=== PATIENT | male | born 1970 | race Caucasian/White ===

== ENCOUNTER 2020-08-30 08:12 | Outpatient (REF) | payer BC, SELFPAY ==
[2020-08-30 09:06] LABS: Glucose Urine UA NEG (NEG); Leukocyte Esterase Urine NEG (NEG); Nitrite Urine NEG (NEG); PH 6.5 (5.0-8.0); Specific Gravity - Urine 1.025 (1.005-1.025); Urine Blood NEG (NEG); Urine Ketones NEG (NEG); Urine Protein NEG (NEG-TRACE)
[2020-08-30 09:08] LABS: Appearance Urine HAZY; Color Urine YELLOW
== END 2020-08-30 08:13 | disposition home or self-care (01) ==
LOC: HO.LAB 08:12
PROVIDERS: PCP Internal Medicine; Visit Provider Urology
DX: R30.0 Dysuria (principal)
CPT/HCPCS: 81003; 87086

== ENCOUNTER → 2020-09-26 15:23 | Outpatient (BNVA) | payer BC, SELFPAY | PROVIDERS: PCP Internal Medicine; Referring Provider Internal Medicine; Visit Provider Nurse Practitioner | DX: Z76.89 Persons encountering health services in other specified circumstances (principal) ==

== ENCOUNTER 2020-09-27 09:39 | Outpatient (REF) | payer BC, SELFPAY ==
[2020-09-27 10:42] LABS: Alanine Aminotransferase 59 U/L (0-40); Albumin Level 4.2 g/dL (3.5-5.0); Alkaline Phosphatase 56 U/L (39-117); Aspartate Amino Transferase 36 U/L (5-37); Bilirubin Direct 0.3 mg/dL (0.0-0.5); Bilirubin Total 0.5 mg/dL (0.0-1.0); Total Protein 6.7 g/dL (6.5-8.0)
[2020-09-27 14:36] LABS: CDIFF Ag Negative (Negative); CDIFF Internal ctrl Dots and bkg OK (V); CDiff Toxin Negative (Negative)
[2020-09-28 15:47] LABS: Alpha Fetoprotein 3.6 ng/mL (<6.1)
== END 2020-09-27 09:40 | disposition home or self-care (01) ==
LOC: HO.10HDL 09:39
PROVIDERS: Visit Provider Nurse Practitioner
DX: K76.0 Fatty (change of) liver, not elsewhere classified (principal); R19.7 Diarrhea, unspecified
CPT/HCPCS: 80076; 82105; 87045; 87046; 87324; 87449

== ENCOUNTER 2020-09-28 11:18 | Outpatient (REF) | payer BC, SELFPAY ==
[2020-09-28 15:37] LABS: PSA,Total (Free>4and<10) 8.37 ng/mL (0.00-4.00)
[2020-10-01 12:23] LABS: Free Prostate Spec Ag 0.7 ng/mL; Percent Free Prostate Spec Ag 9 % (calc) (>25); Prostate Specific Ag Total 7.4 ng/mL (< OR = 4.0)
== END 2020-09-28 11:19 | disposition home or self-care (01) ==
LOC: HO.10HDL 11:18
PROVIDERS: Visit Provider Urology
DX: R97.20 Elevated prostate specific antigen [PSA] (principal)
CPT/HCPCS: 84153; 84154

== ENCOUNTER → 2020-11-14 14:18 | Outpatient (BNVA) | payer BC, SELFPAY | PROVIDERS: PCP Internal Medicine; Visit Provider Urology | DX: Z76.89 Persons encountering health services in other specified circumstances (principal) ==

== ENCOUNTER 2021-01-10 09:18 | Outpatient (REF) | payer BC, SELFPAY | END 2021-01-10 09:19 | disposition home or self-care (01) | LOC: HO.LAB 09:18 | PROVIDERS: Visit Provider Internal Medicine | DX: Z20.822 Contact with and (suspected) exposure to COVID-19 (principal) | CPT/HCPCS: 36415; C9803; U0003; U0005 ==

== ENCOUNTER 2021-01-13 17:19 | Inpatient (IN) | payer BC, SELFPAY ==
--- NOTE | ~2021-01-13 | CT_ITS ---
EXAMINATION: CT ANGIOGRAM OF THE CHEST WITH AND WITHOUT CONTRAST (CT PULMONARY ANGIOGRAM FOR PE) CLINICAL INFORMATION: Reason for Exam chest pain. elevated D-dimer. PE? Covid pneumonia COMPARISON: Chest radiograph today, ultrasound abdomen 04/04/2020, CT abdomen pelvis 12/20/2018 TECHNIQUE: Prior to contrast administration, noncontrast localization images were obtained. Subsequently, multidetector volumetric imaging was performed from the thoracic inlet to below the diaphragms following the administration of 80 mL Omnipaque 350 intravenous contrast. No contrast reaction reported Sagittal, coronal, and MIP oblique sagittal reformatted images were obtained on the CT workstation, uploaded to PACS, and reviewed. This CT examination was performed using dose optimization techniques as appropriate, variously including the following: *Automated exposure control *Adjustment of mA and/or kV according to patient size (this includes techniques or standardized protocols for targeted exams where dose is matched to indication/reason for exam; i.e. extremities or head) *Use of iterative reconstruction technique Total exam dose-length product 397 mGy-cm FINDINGS: QUALITY OF STUDY/CONTRAST BOLUS: Satisfactory. There is significant motion artifact however the great PULMONARY ARTERIES: No central or large segmental pulmonary emboli. THORACIC AORTA: No aneurysm or dissection. LUNG: Right basilar atelectasis/infiltrate is present. Only minimal atelectasis is present at the left lung base. No findings are present to suggest the presence of viral pneumonia. PLEURA: No pleural effusion or pneumothorax. MEDIASTINUM: Normal heart size. No pericardial effusion. Prominent right paratracheal lymph node measuring 3.2 x 1.5 x 1.5 cm. No hilar or mediastinal lymphadenopathy. No evidence of septal bowing or right heart strain. CHEST WALL/AXILLA: No axillary or internal mammary lymphadenopathy. OSSEOUS STRUCTURES: No acute or suspicious osseous abnormality. UPPER ABDOMEN: The liver appears enlarged and is of decreased attenuation consistent with hepatic steatosis. Similar findings were seen on prior liver ultrasound No reflux of contrast into the hepatic veins to suggest elevated right heart pressures. CT/CT angio chest PE protocol IMPRESSION: No evidence of pulmonary emboli. Exam is somewhat limited by motion artifact. Right basilar infiltrate/atelectasis VTE: negative with limitations
--- NOTE | ~2021-01-13 | XR_ITS ---
EXAMINATION: XR CHEST CLINICAL INFORMATION: Right-sided chest or rib pain COMPARISON: 03/05/2019 TECHNIQUE: Frontal view of the chest was obtained. FINDINGS: Lung volumes are low. There is hazy opacity at the lung bases and diffusely increased interstitial prominence. Normal heart size. No pleural effusion or pneumothorax. XR/XR chest 1V IMPRESSION: In the setting of low lung volumes, there is hazy bibasilar opacity and diffuse interstitial prominence new from the prior study. Although all of these findings could be due to low lung volumes with atelectasis and bronchovascular crowding, viral COVID interstitial pneumonitis could give this appearance as well.
--- NOTE | ~2021-01-13 | XR_ITS ---
EXAMINATION: XR CHEST CLINICAL INFORMATION: Chest pain COMPARISON: AP film earlier today and chest radiograph 02/23/2019 TECHNIQUE: Lateral view of the chest was obtained. FINDINGS: Again seen are low lung volumes. The lateral film confirms the patchy bibasilar densities seen on the AP film. The left posterior costophrenic angle is sharp. The right, posterior costophrenic angle has overlying atelectasis. A definite pleural effusion is not seen. XR/XR chest 1V IMPRESSION: Bibasilar opacities. The current study does not add much to the prior report. Atelectasis remains a consideration as does interstitial pneumonitis such as Covid 19.
--- NOTE | ~2021-01-13 | XR_ITS ---
EXAMINATION: XR RIBS, RIGHT CLINICAL INFORMATION: Pain COMPARISON: Previous chest x-rays and chest CTA from yesterday TECHNIQUE: 3 views of the right ribs and one view of the chest were obtained. FINDINGS: The cardiac and mediastinal contours are stable. The lung volumes are low. There is increasing atelectasis or small infiltrate at the right lung base. There is subsegmental atelectasis at the left lung base. There may be small bilateral pleural effusions. There is no pneumothorax. No rib fracture is seen. There are mild degenerative changes of the thoracic spine. XR/XR ribs RT min 3V w CXR1V IMPRESSION: Increasing atelectasis or small infiltrate at the right lung base and subsegmental atelectasis at the left lung base. No rib fracture is seen.
--- NOTE | ~2021-01-13 | US_ITS ---
EXAMINATION: US ABDOMEN LIMITED CLINICAL INFORMATION: Right upper quadrant pain. COMPARISON: Previous CTA of the chest 01/13/2021, abdominal ultrasounds most recent March 2020 CT of the abdomen and pelvis December 2018 TECHNIQUE: Real-time imaging of the right upper quadrant abdominal viscera. FINDINGS: PANCREAS: Not well visualized due to bowel gas. LIVER: Liver echotexture is increased suggestive of fatty infiltration. The liver is enlarged. The liver is normal in contour. No focal liver lesion or biliary duct dilatation. GALLBLADDER: The gallbladder is normal in size. There are gallstones. The gallbladder wall does not appear thickened. There is no pericholecystic fluid. COMMON BILE DUCT: Not seen. RIGHT KIDNEY: Normal. No hydronephrosis. No renal calculi or focal parenchymal lesions. The kidney measures 14 cm in maximum dimension. FREE FLUID: None. US/US abdomen limited IMPRESSION: Enlarged echogenic liver. Gallstones. No intrahepatic biliary duct dilatation. Common bile duct and pancreas not seen.
[2021-01-13 17:24] VITALS: BP 140/72; PULSE 80; RESP 20; TEMP 37.7; O2SAT 95; BMI 31.0
[2021-01-13 19:24] VITALS: BP 135/85; PULSE 82; RESP 22; O2SAT 94
--- NOTE | 2021-01-13 19:56 | ECG_ITS ---
Test Reason : CHEST PAIN Blood Pressure : / mmHG Vent. Rate : 083 BPM Atrial Rate : 083 BPM P-R Int : 142 ms QRS Dur : 100 ms QT Int : 384 ms P-R-T Axes : 032 004 013 degrees QTc Int : 451 ms Normal sinus rhythm Nonspecific T wave changes When compared with ECG of 24-FEB-2019 02:09, No significant changes seen Referred By: Miguel Ángel Chun Electronically Signed By:Augustine Rivera
[2021-01-13 20:13] LABS: COVID-19 Test Negative (Negative)
--- NOTE | 2021-01-13 20:13 | ED_ITS ---
HPI - General Adult General Chief complaint: General Medical Stated complaint: SOB - rib pain Time Seen by Provider: 01/13/21 19:35 Source: patient Mode of arrival: ambulatory History of Present Illness HPI narrative: To ED for right-sided chest pain/pain on inspiration. Patient states coughing since last week with yellow phlegm and had negative COVID swab. Patient states cough her past couple of days and this morning he woke up with r ight lower chest/rib pain and worse on inspiration. Related Data Home Medications Medication Instructions Recorded Confirmed ascorbic acid (vitamin C) 500 mg 500 mg PO DAILY 07/19/20 tablet multivitamin with minerals 1 tab PO DAILY 07/19/20 naproxen 500 mg tablet 500 mg PO Q12H PRN tab 07/19/20 omega-3 fatty acids 1,000 mg 1,000 mg PO DAILY 07/19/20 capsule prednisone 10 mg tablet 10 mg PO DAILY 07/19/20 Previous Rx's Medication Instructions Recorded lisinopril 5 mg tablet 5 mg PO DAILY #30 tab 09/21/20 finasteride 5 mg tablet 5 mg PO DAILY 90 Days #90 tab 10/23/20 citalopram 20 mg tablet 20 mg PO DAILY #90 tab 11/27/20 levothyroxine 175 mcg tablet 175 mcg PO DAILY #90 tab 12/20/20 verapamil 80 mg tablet 80 mg PO TID #270 tab 12/20/20 Allergies Allergy/AdvReac Type Severity Reaction Status Date / Time amoxicillin Allergy Unknown Unknown Verified 11/14/20 14:20 fenofibrate [From TRICOR] Allergy Unknown UNKNOWN Verified 11/14/20 14:20 Sulfa (Sulfonamide Allergy Unknown mucosal Verified 11/14/20 14:20 Antibiotics) and hand rash/scaling sulfamethoxazole Allergy mucosal Verified 11/14/20 14:20 [From Bactrim] and hand rash/scaling trimethoprim [From Bactrim] Allergy mucosal Verified 11/14/20 14:20 and hand rash/scaling Review of Systems Review of Systems: Yes all other systems are reviewed and are negative Constitutional: Constitutional: Reports as per HPI and Reports no additional constitutional complaints Eyes: Eyes: Reports as per HPI and Reports no additional eye complaints ENT: Reports system reviewed and no additional complaints, except as documented and Reports as per HPI Cardiovascular: Cardiovascular: Reports as per HPI, Reports no additional cardiovascular complaints and Reports chest pain Respiratory: Respiratory: Reports as per HPI, Reports no additional respiratory complaints, Denies cough and Denies pain with cough Gastrointestinal: Gastrointestinal: Reports as per HPI and Reports no adam tional gastrointestinal complaints Genitourinary: Genitourinary: Reports no additional male genitourinary complaints and Reports as per HPI Musculoskeletal: Musculoskeletal: Reports no additional musculoskeletal complaints and Reports as per HPI Neurologic: Reports system reviewed and no additional complaints, except as documented and Reports as per HPI Psychiatric: Psychiatric: Reports no additional psychiatric complaints and Reports as per HPI [facility] Past Medical History Medical History (Updated 01/14/21 @ 01:49 by SHARI Karimi) HTN (hypertension) Hypothyroid Surgical History History of back surgery History of colonoscopy History of cystoscopy Family History Family History Father CVD (cardiovascular disease) Heart attack Rheumatoid arthritis Mother Dementia Social History Social History Alcohol intake: never Smoking Status: Current every day smoker Tobacco Type: Cigarette Years Smoked: when I drink Use of substances other than those prescribed or required for medical reasons: No Advance Directives: No Advance Directives Information Provided: No Physical Exam Vital Signs: Vital Signs: Last Vital Signs Temp 99.8 F 01/13/21 17:24 Pulse 80 01/13/21 20:47 Resp 21 H 01/13/21 20:47 BP 147/71 H 01/13/21 20:47 Pulse Ox 94 01/13/21 20:47 Body Mass Index 31.0 Const: General: cooperative, healthy appearing, comfortable, no acute distress, well developed, alert, awake and Physically active Orientation/consciousness: patient oriented x3 HENMT: Head: Yes normal to inspection and Yes No palpable skull fracture present Eyes: General: appearance normal, both eyes and all related structures Neck: Neck: Yes normal visual inspection, Yes full ROM, Yes no lymphadenopathy, Yes no meningeal signs, Yes trachea midline and Yes supple Chest: Chest palpation & inspection: normal inspection of the chest, normal palpation of entire chest wall and localized rib tenderness with anteroposterior compression Resp: Effort & Inspection: normal respiratory effort and able to speak in complete sentences Auscultation: clear to auscultation bilaterally Cardio: Jugular venous distension: no JVD Heart sounds: S1 normal heart sound present and S2 normal heart sound present GI: Inspection: Yes normal to inspection and No abdominal wall ecchymosis Palpation (GI): Soft to palpation, not firm, nontender, no guarding and not rigid : General: No CVA tenderness and Yes no CVA tenderness Back/Spine/Pelvis: Back: no CVA tenderness, No CVA tenderness and No back te nderness Skin: General skin exam: no rashes or lesions noted and elasticity normal Neuro: General: patient oriented x3, no meningeal signs and CN's II-XI intact bilaterally Cranial nerves: Yes CN's II-XII intact bilaterally Extrem: General: Yes normal to inspection and Yes full ROM Psych: Appearance: grossly normal, well kempt and not disheveled Course Course Course Narrative: Patient will have a COVID swab. Patient also have a chest x- ray to make sure there is no pneumo or pneumonia. Patient also have D-dimer to make sure he is not having no PE. Patient also have labs and Toradol for pain Reevaluation(s) Reevaluation #1: Patient COVID swabs were negative. Patient's chest x-ray showed possible COVID pneumonia. Patient still having right-sided chest pain. Due to elevated white blood cell count [id number] patient started on IV antibiotics. Patient sent for chest CT to rule PE Reevaluation #2: Chest CT negative for COVID pneumonia or PE. This shows right-sided infiltrate. Patient will be admitted to the hospital. EKG negative for STEMI. Patient started on antibiotics Medical Decision Making [facility] Narrative Medical decision making narrative: Pneumonia Lab Data Result diagrams: 01/13/21 20:16 01/13/21 20:16 Labs: Lab Results 01/13/21 01/13/21 01/13/21 Range/Units 19:52 20:16 20:16 WBC 26.7 H (4.8-10.8) X10*3/uL RBC 4.12 L (4.60-5.80) X10*6/uL Hgb 13.7 L (14.0-18.0) g/dl Hct 40.0 L (42-52) % MCV 97.1 (80-98) fL MCH 33.3 H (27.0-33.0) pg MCHC 34.3 (31.0-36.0) g/dl RDW 12.4 (11.0-16.0) % Plt Count 221 (160-400) X10*3/uL MPV 9.6 (9.4-12.4) fL Immature Gran % (Auto) 0.7 H (0.0-0.4) % Neut % (Auto) 79.4 H (45-73) % Lymph % (Auto) 9.1 L (20-40) % Tyrrell % (Auto) 10.4 (2-11) % Eos % (Auto) 0.2 (0-4) % Baso % (Auto) 0.2 (0-2) % Lymph # (Auto) 2.4 (1.2-4.9) X10*3/uL Tyrrell # (Auto) 2.8 H (0.1-1.2) X10*3/uL Eos # (Auto) 0.1 (0.0-0.4) X10*3/uL Baso # (Auto) 0.1 (0.0-0.2) X10*3/uL Abs Immat Gran (auto) 0.20 H (0.00-0.03) X10*3/uL Absolute Neuts (auto) 21.2 H (2.0-8.3) X10*3/uL Absolute Nucleated RBC 0.000 (0.0-0.012) X10*3/uL Nucleated RBC % (auto) 0.0 (0.0-0.2) /100WBC Smear Tech's Comments VERIFIED PT 14.9 H (10.8-13.0) SEC INR 1.3 H (0.9-1.1) APTT 59.5 H (24.1-38.0) SEC D-Dimer 725 NG/ML Sodium (135-145) mmol/L Potassium (3.3-5.1) mmol/L Chloride (96-108) mmol/L Carbon Dioxide (22-29) mmol/L Anion Gap (12-20) BUN (9-16) mg/dL Creatinine (0.5-1.4) mg/dL Estim Creat Clear Calc Estimated GFR Random Glucose (60-115) mg/dL Lactic Acid (0.5-2.0) mmol/L Calcium (8.4-10.2) mg/dL Ferritin (20-250) ng/mL Total Bilirubin (0.0-1.0) mg/dL Direct Bilirubin (0.0-0.5) mg/dL AST (5-37) U/L ALT (0-40) U/L Alkaline Phosphatase (39-117) U/L Lactate Dehydrogenase (118-273) U/L Troponin I High Sens (<3.5-35.0) ng/L Total Protein (6.5-8.0) g/dL Albumin (3.5-5.0) g/dL Procalcitonin ng/mL COVID-19 ([facility]) Negative (Negative) COVID-19 Clin Com See Note 01/13/21 01/13/21 01/13/21 Range/Units 20:16 20:16 20:16 WBC (4.8-10.8) X10*3/uL RBC (4.60-5.80) X10*6/uL Hgb (14.0-18.0) g/dl Hct (42-52) % MCV (80-98) fL MCH (27.0-33.0) pg MCHC (31.0-36.0) g/dl RDW (11.0-16.0) % Plt Count (160-400) X10*3/uL MPV (9.4-12.4) fL Immature Gran % (Auto) (0.0-0.4) % Neut % (Auto) (45-73) % Lymph % (Auto) (20-40) % Tyrrell % (Auto) (2-11) % Eos % (Auto) (0-4) % Baso % (Auto) (0-2) % Lymph # (Auto) (1.2-4.9) X10*3/uL Tyrrell # (Auto) (0.1-1.2) X10*3/uL Eos # (Auto) (0.0-0.4) X10*3/uL Baso # (Auto) (0.0-0.2) X10*3/uL Abs Immat Gran (auto) (0.00-0.03) X10*3/uL Absolute Neuts (auto) (2.0-8.3) X10*3/uL Absolute Nucleated RBC (0.0-0.012) X10*3/uL Nucleated RBC % (auto) (0.0-0.2) /100WBC Smear Tech's Comments PT (10.8-13.0) SEC INR (0.9-1.1) APTT (24.1-38.0) SEC D-Dimer NG/ML Sodium 136 (135-145) mmol/L Potassium 4.0 (3.3-5.1) mmol/L Chloride 103 (96-108) mmol/L Carbon Dioxide 21 L (22-29) mmol/L Anion Gap 16 (12-20) BUN 17 H (9-16) mg/dL Creatinine 0.86 (0.5-1.4) mg/dL Estim Creat Clear Calc 115.7 Estimated GFR > 60 Random Glucose 119 H (60-115) mg/dL Lactic Acid (0.5-2.0) mmol/L Calcium 8.6 (8.4-10.2) mg/dL Ferritin 799 H (20-250) ng/mL Total Bilirubin 1.5 H (0.0-1.0) mg/dL Direct Bilirubin 0.6 H (0.0-0.5) mg/dL AST 24 (5-37) U/L ALT 47 H (0-40) U/L Alkaline Phosphatase 66 (39-117) U/L Lactate Dehydrogenase 188 (118-273) U/L Troponin I High Sens 4.0 (<3.5-35.0) ng/L Total Protein 7.4 (6.5-8.0) g/dL Albumin 4.3 (3.5-5.0) g/dL Procalcitonin ng/mL COVID-19 ([facility]) (Negative) COVID-19 Clin Com 01/13/21 01/13/21 Range/Units 20:16 21:44 WBC (4.8-10.8) X10*3/uL RBC (4.60-5.80) X10*6/uL Hgb (14.0-18.0) g/dl Hct (42-52) % MCV (80-98) fL MCH (27.0-33.0) pg MCHC (31.0-36.0) g/dl RDW (11.0-16.0) % Plt Count (160-400) X10*3/uL MPV (9.4-12.4) fL Immature Gran % (Auto) (0.0-0.4) % Neut % (Auto) (45-73) % Lymph % (Auto) (20-40) % Tyrrell % (Auto) (2-11) % Eos % (Auto) (0-4) % Baso % (Auto) (0-2) % Lymph # (Auto) (1.2-4.9) X10*3/uL Tyrrell # (Auto) (0.1-1.2) X10*3/uL Eos # (Auto) (0.0-0.4) X10*3/uL Baso # (Auto) (0.0-0.2) X10*3/uL Abs Immat Gran (auto) (0.00-0.03) X10*3/uL Absolute Neuts (auto) (2.0-8.3) X10*3/uL Absolute Nucleated RBC (0.0-0.012) X10*3/uL Nucleated RBC % (auto) (0.0-0.2) /100WBC Smear Tech's Comments PT (10.8-13.0) SEC INR (0.9-1.1) APTT (24.1-38.0) SEC D-Dimer NG/ML Sodium (135-145) mmol/L Potassium (3.3-5.1) mmol/L Chloride (96-108) mmol/L Carbon Dioxide (22-29) mmol/L Anion Gap (12-20) BUN (9-16) mg/dL Creatinine (0.5-1.4) mg/dL Estim Creat Clear Calc Estimated GFR Random Glucose (60-115) mg/dL Lactic Acid 0.9 (0.5-2.0) mmol/L Calcium (8.4-10.2) mg/dL Ferritin (20-250) ng/mL Total Bilirubin (0.0-1.0) mg/dL Direct Bilirubin (0.0-0.5) mg/dL AST (5-37) U/L ALT (0-40) U/L Alkaline Phosphatase (39-117) U/L Lactate Dehydrogenase (118-273) U/L Troponin I High Sens (<3.5-35.0) ng/L Total Protein (6.5-8.0) g/dL Albumin (3.5-5.0) g/dL Procalcitonin 0.48 ng/mL COVID-19 ([facility]) (Negative) COVID-19 Clin Com ECG Data Interpretation: Normal sinus rhythm. Normal EKG. Ventricular rate 83. Ap pearance of a 138. QRS 102. QTC 435. Negative STEMI Discharge Plan Discharge Clinical Impression: Pneumonia Patient Disposition: Admitted As Inpatient
[2021-01-13 20:40] LABS: INTERNATIONAL NORM RATIO 1.3 (0.9-1.1); Prothrombin Time 14.9 SEC (10.8-13.0)
[2021-01-13 20:41] LABS: Basophils Absolute Auto 0.1 X10*3/uL (0.0-0.2); Basophils Percent Auto 0.2 % (0-2); Eosinophils Absolute Auto 0.1 X10*3/uL (0.0-0.4); Eosinophils Percent Auto 0.2 % (0-4); Hemoglobin 13.7 g/dl (14.0-18.0); Imm Gran Pct Auto 0.7 % (0.0-0.4); Lymphocytes Absolute Auto 2.4 X10*3/uL (1.2-4.9); Lymphocytes Percent Auto 9.1 % (20-40); MANUAL DIFF FLAG SCAN; Mean Corpuscular HGB Conc 34.3 g/dl (31.0-36.0); Mean Corpuscular Hemoglobin 33.3 pg (27.0-33.0); Mean Corpuscular Volume 97.1 fL (80-98); Mean Platelet Volume 9.6 fL (9.4-12.4); Monocytes Absolute Auto 2.8 X10*3/uL (0.1-1.2); Monocytes Percent Auto 10.4 % (2-11); Neutrophils Absolute Auto 21.2 X10*3/uL (2.0-8.3); Neutrophils Percent Auto 79.4 % (45-73); Platelet Count 221 X10*3/uL (160-400); Red Blood Count 4.12 X10*6/uL (4.60-5.80); Red Cell Distribution Width 12.4 % (11.0-16.0); SCAN SMEAR FLAG 1; White Blood Count 26.7 X10*3/uL (4.8-10.8)
[2021-01-13] MEDS: Ketorolac Tromethamine 30 MG/ML VIAL IVPUSH (20:41)
[2021-01-13 20:43] LABS: D Dimer 725 NG/ML
[2021-01-13 20:47] VITALS: BP 147/71; PULSE 80; RESP 21; O2SAT 94
[2021-01-13 20:55] LABS: Alanine Aminotransferase 47 U/L (0-40); Albumin Level 4.3 g/dL (3.5-5.0); Alkaline Phosphatase 66 U/L (39-117); Anion Gap 16 (12-20); Aspartate Amino Transferase 24 U/L (5-37); Bilirubin Direct 0.6 mg/dL (0.0-0.5); Bilirubin Total 1.5 mg/dL (0.0-1.0); Blood Urea Nitrogen 17 mg/dL (9-16); Calcium 8.6 mg/dL (8.4-10.2); Carbon Dioxide 21 mmol/L (22-29); Chloride 103 mmol/L (96-108); Creatinine Clr Calc Pharmacy 115.7; Estimated Glomerular Filt Rate > 60; Glucose Random 119 mg/dL (60-115); Lactate Dehydrogenase 188 U/L (118-273); Sodium 136 mmol/L (135-145); Total Protein 7.4 g/dL (6.5-8.0)
[2021-01-13 21:14] LABS: Ferritin 799 ng/mL (20-250)
[2021-01-13 21:17] LABS: Procalcitonin 0.48 ng/mL; SLIDE REVIEW VERIFIED
[2021-01-13 21:27] LABS: Partial Thromboplastin Time 59.5 SEC (24.1-38.0)
[2021-01-13 22:09] LABS: Lactic Acid 0.9 mmol/L (0.5-2.0)
[2021-01-13] MEDS: Morphine Sulfate 2 MG/ML CARTRIDGE IVPUSH (22:09)
[2021-01-13] MEDS: iohexoL 350 MG/ML 75 ML INFUS..BTL IV (22:38)
[2021-01-13] MEDS: cefTRIAXone sodium 1 GM in 0.9 % Sodium Chloride 50 ML IV (23:13)
[2021-01-13] MEDS: Azithromycin 500 MG in 0.9 % Sodium Chloride 250 ML 125 MG IV (23:35)
[2021-01-14] VITALS (7 sets, daily range): BP systolic 135–166; BP diastolic 77–89; PULSE 88–99; RESP 16–20; TEMP 36.3–37.3; O2SAT 90–94
[2021-01-14] MEDS: Ketorolac Tromethamine 15 MG/ML VIAL IVPUSH (02:32)
[2021-01-14] MEDS: LORazepam 2 MG/ML VIAL IVPUSH (02:34)
[2021-01-14] MEDS: PHENobarbitaL sodium 130 MG/ML VIAL 227.5 MG IM (04:30)
--- NOTE | 2021-01-14 04:52 | P.HPHOSP_ITS ---
History of Present Illness Date of Service: 01/14/21 Chief Complaint: chest pain This is a 50-year-old male with past medical history of BPH, hypertension, hypothyroidism, anxiety and depression, who presents to the hospital with complaints of right-sided chest pain that feels like tearing, 10/10, radiating to the back, associated with a cough, sputum production. Patient reports that his symptoms started the night before, pain is worse with inspiration, and movement. He has no headache, change in vision, no palpitations, no abdominal pain nausea or vomiting, no diarrhea constipation, no urinary symptoms and no lower extremity edema. On arrival to the ED hemodynamically stable with no significant abnormal vitals except for a respiratory rate of 22. Blood pressure 140/7 did have remained in that range Labs are significant for WBC count of 26.7, hemoglobin of 13.7, hematocrit of 40.0, PT 14.9, INR of 1.3, PTT of 59.5, ferritin of 799, total bili of 1.5, direct of 0.6, COVID-19 negative, CT chest angiogram shows no aneurysm or dissection of the thoracic aorta, lung shows right basilar atelectasis/infiltrate, no pleural effusion or pneumothorax, the liver also shows hepatic steatosis Past medical history as below and confirmed with patient Review of Systems Review of Systems: Yes all other systems are reviewed and are negative [facility] Medical History BPH w urinary obs/LUTS Hepatic steatosis HTN (hypertension) Hypothyroid Family History Father CVD (cardiovascular disease) Heart attack Rheumatoid arthritis Mother Dementia Surgical History History of back surgery History of colonoscopy History of cystoscopy Social History Household Members: Significant Other Housing: House Do you presently have visiting nurse or other home services: No Alcohol intake: never Smoking Status: Current every day smoker Tobacco Type: Cigarette Cigarettes Per Day: 10 Years Smoked: when I drink Smoked in Last 30 Days: Yes Patient Interested in Nicotine Replacement: No Patient Given Instructions on How to Stop Smoking: No Second Hand Smoke Exposure: Yes Use of substances other than those prescribed or required for medical reasons: No Have you been hit, kicked, punched, or otherwise hurt by someone within the past year? If so, by whom?: No Do you feel safe in your current relationship?: No Is there a partner from a previous relationship who is making you feel unsafe now?: No Advance Directives: No Advance Directives Information Provided: No Do you have thoughts of harming others: None Do you have a plan to hurt others: No Plan Recently lost weight without trying: No Meds Allergies Allergy/AdvReac Type Severity Reaction Status Date / Time amoxicillin Allergy Unknown Unknown Verified 11/14/20 14:20 fenofibrate [From TRICOR] Allergy Unknown UNKNOWN Verified 11/14/20 14:20 Sulfa (Sulfonamide Allergy Unknown mucosal Verified 11/14/20 14:20 Antibiotics) and hand rash/scaling sulfamethoxazole Allergy mucosal Verified 11/14/20 14:20 [From Bactrim] and hand rash/scaling trimethoprim [From Bactrim] Allergy mucosal Verified 11/14/20 14:20 and hand rash/scaling Active Medications: Current Medications Generic Name Dose Route Start Last Admin Trade Name Freq PRN Reason Stop Dose Admin Acetaminophen 650 mg 01/14/21 02:54 Acetaminophen 325 Mg Tablet PO Q6H PRN Pain, Mild (Pain Scale 1-3) Ascorbic Acid 500 mg 01/14/21 09:00 Ascorbic Acid 500 Mg Tablet PO DAILY [facility] Enoxaparin Sodium 40 mg 01/14/21 06:00 Enoxaparin Sodium 40 Mg/0.4 Ml Syringe SUBCUT Q24H [facility] Escitalopram Oxalate 10 mg 01/14/21 09:00 Escitalopram Oxalate 10 Mg Tablet PO DAILY [facility] Finasteride 5 mg 01/14/21 09:00 Finasteride 5 Mg Tablet PO DAILY [facility] Ceftriaxone Sodium 1 gm/ 50 mls @ 100 mls/hr 01/14/21 21:00 Sodium Chloride IV Q24H [facility] Azithromycin 500 mg/ Sodium 250 mls @ 125 mls/hr 01/14/21 22:00 Chloride IV Q24H [facility] Levothyroxine Sodium 175 mcg 01/14/21 06:30 Levothyroxine Sodium 175 Mcg Tablet PO DAILY@0630 [facility] Lisinopril 5 mg 01/14/21 09:00 Lisinopril 5 Mg Tablet PO DAILY [facility] Protocol Medication 1 each 01/14/21 09:00 No Benzodiazepines MISCELLANE DAILY [facility] Morphine Sulfate 4 mg 01/14/21 02:55 Morphine Sulfate 4 Mg/Ml Cartridge IVPUSH Q4H PRN Pain, Severe (Pain Scale 7-10) Multivitamins/Minerals 1 tab 01/14/21 09:00 Multivitamin With Minerals Tablet PO DAILY [facility] Ondansetron HCl 4 mg 01/14/21 02:54 Ondansetron Hcl 4 Mg/2 Ml Vial IVPUSH Q8H PRN Nausea and Vomiting Pharmacy Consult 1 each 01/14/21 02:56 Consult Rx Etoh Phenob Dosing MISCELLANE 01/14/21 02:57 ONCE ONE Protocol Phenobarbital Sodium 169 mg 01/14/21 07:30 Phenobarbital Sodium 130 Mg/Ml Vial IM 01/14/21 10:31 Q3H [facility] Sodium Chloride 3 ml 01/14/21 08:00 0.9 % Sodium Chloride Flush 3 Ml Syringe IVFLUSH QSHIFT [facility] Verapamil HCl 80 mg 01/14/21 09:00 Verapamil Hcl 80 Mg Tablet PO TID [facility] Protocol Home Medications Medication Instructions Recorded Confirmed Last Taken Type ascorbic acid (vitamin C) 500 mg 500 mg PO DAILY 07/19/20 01/14/21 Unknown History tablet multivitamin with minerals 1 tab PO DAILY 07/19/20 01/14/21 Unknown History omega-3 fatty acids 1,000 mg 1,000 mg PO DAILY 07/19/20 01/14/21 Unknown History capsule citalopram 1 tab PO DAILY 01/14/21 01/14/21 Unknown History finasteride 1 tab PO DAILY 01/14/21 01/14/21 Unknown History levothyroxine 1 tab PO DAILY 01/14/21 01/14/21 Unknown History lisinopril 1 tab PO DAILY 01/14/21 01/14/21 Unknown History verapamil 1 tab PO TID 01/14/21 01/14/21 Unknown History Physical Exam Vital Signs and Narrative: Vital Signs: Last Vital Signs Temp 97.4 F 01/14/21 04:00 Pulse 88 01/14/21 04:00 Resp 16 01/14/21 04:00 BP 142/89 H 01/14/21 04:00 Pulse Ox 93 01/14/21 04:00 Body Mass Index 31.0 Const: Other: Patient appears in significant pain, but when distracted appears less than pain General: cooperative and no acute distress Orientation/consciousness: patient oriented x3 Eyes: General: appearance normal, both eyes and all related structures Resp: Effort & Inspection: normal respiratory effort and able to speak in complete sentences Cardio: Rate: regular rate Rhythm: regular rhythm GI: Palpation (GI): Soft to palpation Auscultation: normal bowel sounds Skin: General skin exam: no rashes or lesions noted Neuro: General: patient oriented x3 Cognition (Neuro): normal cognition Extrem: General: Yes normal to inspection and Yes no pedal edema Results Labs CBC and Chem 7: 01/13/21 20:16 01/13/21 20:16 Labs: Laboratory Results - last 24 hr 01/13/21 01/13/21 01/13/21 19:52 20:16 20:16 MCV 97.1 MCH 33.3 H MCHC 34.3 RDW 12.4 Plt Count 221 MPV 9.6 Immature Gran % (Auto) 0.7 H Neut % (Auto) 79.4 H Lymph % (Auto) 9.1 L [place] % (Auto) 10.4 Eos % (Auto) 0.2 Baso % (Auto) 0.2 Lymph # (Auto) 2.4 [place] # (Auto) 2.8 H Eos # (Auto) 0.1 Baso # (Auto) 0.1 Abs Immat Gran (auto) 0.20 H Absolute Neuts (auto) 21.2 H Absolute Nucleated RBC 0.000 Nucleated RBC % (auto) 0.0 Smear Tech's Comments VERIFIED PT 14.9 H INR 1.3 H APTT 59.5 H D-Dimer 725 Anion Gap Estim Creat Clear Calc Estimated GFR Random Glucose Lactic Acid Calcium Ferritin Total Bilirubin Direct Bilirubin AST ALT Alkaline Phosphatase Lactate Dehydrogenase Troponin I High Sens Total Protein Albumin Procalcitonin COVID-19 ([facility]) Negative COVID-19 Clin Com See Note 01/13/21 01/13/21 01/13/21 20:16 20:16 20:16 MCV MCH MCHC RDW Plt Count MPV Immature Gran % (Auto) Neut % (Auto) Lymph % (Auto) [place] % (Auto) Eos % (Auto) Baso % (Auto) Lymph # (Auto) [place] # (Auto) Eos # (Auto) Baso # (Auto) Abs Immat Gran (auto) Absolute Neuts (auto) Absolute Nucleated RBC Nucleated RBC % (auto) Smear Tech's Comments PT INR APTT D-Dimer Anion Gap 16 Estim Creat Clear Calc 115.7 Estimated GFR > 60 Random Glucose 119 H Lactic Acid Calcium 8.6 Ferritin 799 H Total Bilirubin 1.5 H Direct Bilirubin 0.6 H AST 24 ALT 47 H Alkaline Phosphatase 66 Lactate Dehydrogenase 188 Troponin I High Sens 4.0 Total Protein 7.4 Albumin 4.3 Procalcitonin COVID-19 ([facility]) COVID-19 Clin Com 01/13/21 01/13/21 20:16 21:44 MCV MCH MCHC RDW Plt Count MPV Immature Gran % (Auto) Neut % (Auto) Lymph % (Auto) [place] % (Auto) Eos % (Auto) Baso % (Auto) Lymph # (Auto) [place] # (Auto) Eos # (Auto) Baso # (Auto) Abs Immat Gran (auto) Absolute Neuts (auto) Absolute Nucleated RBC Nucleated RBC % (auto) Smear Tech's Comments PT INR APTT D-Dimer Anion Gap Estim Creat Clear Calc Estimated GFR Random Glucose Lactic Acid 0.9 Calcium Ferritin Total Bilirubin Direct Bilirubin AST ALT Alkaline Phosphatase Lactate Dehydrogenase Troponin I High Sens Total Protein Albumin Procalcitonin 0.48 COVID-19 ([facility]) COVID-19 Clin Com Imaging Radiologist's Impressions: Impressions Chest X-Ray 01/13/21 19:56 IMPRESSION: In the setting of low lung volumes, there is hazy bibasilar opacity and diffuse interstitial prominence new from the prior study. Although all of these findings could be due to low lung volumes with atelectasis and bronchovascular crowding, viral COVID interstitial pneumonitis could give this appearance as well. Chest X-Ray 01/13/21 20:41 IMPRESSION: Bibasilar opacities. The current study does not add much to the prior report. Atelectasis remains a consideration as does interstitial pneumonitis such as Covid 19. Chest CTA 01/13/21 21:37 IMPRESSION: No evidence of pulmonary emboli. Exam is somewhat limited by motion artifact. Right basilar infiltrate/atelectasis VTE: negative with limitations Assessment and Plan (1) Pneumonia: Status: Acute (2) Chest pain: Status: Acute (3) Sepsis: Status: Acute 50-year-old male with past medical history of hypertension who presents to the hospital with complaints of right-sided chest pain found to have pneumonia # sepsis - has tachycardia, leukocytosis, - most likely secondary to community-acquired pneumonia, COVID-19 negative, no other source of infection - will start him on IV antibiotics - follow cultures # community-acquired pneumonia - COVID-19 PCR negative - patient has leukocytosis, evidence of infiltrate on chest CT - will start him on IV antibiotics - follow blood cultures, will add strep and Legionella urine antigens # chest pain - right-sided, worse with inspiration, although blood pressure slightly elevated but not significantly, noncardiac, troponin negative - CT angiogram of the chest is negative for any dissection or aneurysm, PE negat joseph - patient hemodynamically stable - will start him on pain medication - monitor # hypertension - continue lisinopril # hypothyroidism - continue levothyroxine DVT prophylaxis: Lovenox
[2021-01-14] MEDS: Levothyroxine Sodium 175 MCG TABLET PO (05:18)
[2021-01-14] MEDS: Enoxaparin Sodium 40 MG/0.4 ML SYRINGE SUBCUT (05:19)
[2021-01-14] MEDS: Morphine Sulfate 4 MG/ML CARTRIDGE IVPUSH ×3 (05:22→18:16)
[2021-01-14] MEDS: Finasteride 5 MG TABLET PO (07:40)
[2021-01-14] MEDS: lisinopriL 5 MG TABLET PO (07:40)
[2021-01-14] MEDS: Escitalopram Oxalate 10 MG TABLET PO (07:41)
[2021-01-14] MEDS: Ascorbic Acid 500 MG TABLET PO (07:41)
[2021-01-14] MEDS: PHENobarbitaL sodium 130 MG/ML VIAL 169 MG IM ×2 (07:42→11:12)
[2021-01-14] MEDS: 0.9 % Sodium Chloride Flush 3 ML SYRINGE IVFLUSH ×2 (07:42→14:58)
[2021-01-14] MEDS: VerapamiL HCL 80 MG TABLET PO ×3 (07:43→22:12)
--- NOTE | 2021-01-14 08:33 | MHC.CM.PN ---
PATIENT LIVES WITH HIS . HE IS FULLY INDEPENDENT WITH NO DME OR VNA SERVICES. DEMOGRAPHIC SHEET INFO VERIFIED. 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
[2021-01-14 09:44] LABS: Hematocrit 37.7 % (42-52); Hemoglobin 12.7 g/dl (14.0-18.0); Mean Corpuscular HGB Conc 33.7 g/dl (31.0-36.0); Mean Corpuscular Hemoglobin 33.4 pg (27.0-33.0); Mean Corpuscular Volume 99.2 fL (80-98); Mean Platelet Volume 9.6 fL (9.4-12.4); Platelet Count 216 X10*3/uL (160-400); Red Cell Distribution Width 12.7 % (11.0-16.0); White Blood Count 25.2 X10*3/uL (4.8-10.8)
--- NOTE | 2021-01-14 11:10 | HO.PM.IMPN ---
Subjective Subjective Date of Service: 01/14/21 Interval History: Follow up pneumonia. Still with pain to his right side. Physical Exam Vital Signs: Vital Signs: Last Vital Signs Temp 97.4 F 01/14/21 04:00 Pulse 89 01/14/21 07:32 Resp 20 01/14/21 07:32 BP 166/82 H 01/14/21 07:32 Pulse Ox 93 01/14/21 07:32 Body Mass Index 31.0 Sitting at the edge of the bed in pain head is normocephalic atraumatic lung sounds are clear to auscultation heart regular rate rhythm, clear S1, S2 positive bowel sounds, abdomen is soft, nontender neuro patient is alert x3, no focal deficits MSK tearing like pain to right lower rib Objective Data Current Medications Generic Name Dose Route Start Last Admin Trade Name Freq PRN Reason Stop Dose Admin Acetaminophen 650 mg 01/14/21 02:54 Acetaminophen 325 Mg Tablet PO Q6H PRN Pain, Mild (Pain Scale 1-3) Ascorbic Acid 500 mg 01/14/21 09:00 01/14/21 07:41 Ascorbic Acid 500 Mg Tablet PO 500 mg DAILY [facility] Administration Enoxaparin Sodium 40 mg 01/14/21 06:00 01/14/21 05:19 Enoxaparin Sodium 40 Mg/0.4 Ml Syringe SUBCUT 40 mg Q24H [facility] Administration Escitalopram Oxalate 10 mg 01/14/21 09:00 01/14/21 07:41 Escitalopram Oxalate 10 Mg Tablet PO 10 mg DAILY [facility] Administration Finasteride 5 mg 01/14/21 09:00 01/14/21 07:40 Finasteride 5 Mg Tablet PO 5 mg DAILY [facility] Administration Ceftriaxone Sodium 1 gm/ 50 mls @ 100 mls/hr 01/14/21 21:00 Sodium Chloride IV Q24H [facility] Azithromycin 500 mg/ Sodium 250 mls @ 125 mls/hr 01/14/21 22:00 Chloride IV Q24H [facility] Levothyroxine Sodium 175 mcg 01/14/21 06:30 01/14/21 05:18 Levothyroxine Sodium 175 Mcg Tablet PO 175 mcg DAILY@0630 [facility] Administration Lisinopril 5 mg 01/14/21 09:00 01/14/21 07:40 Lisinopril 5 Mg Tablet PO 5 mg DAILY [facility] Administration Protocol Medication 1 each 01/14/21 09:00 No Benzodiazepines MISCELLANE DAILY [facility] Morphine Sulfate 4 mg 01/14/21 02:55 01/14/21 05:22 Morphine Sulfate 4 Mg/Ml Cartridge IVPUSH 4 mg Q4H PRN Administration Pain, Severe (Pain Scale 7-10) Multivitamins/Minerals 1 tab 01/14/21 09:00 01/14/21 07:40 Multivitamin With Minerals Tablet PO 1 tab DAILY [facility] Administration Ondansetron HCl 4 mg 01/14/21 02:54 Ondansetron Hcl 4 Mg/2 Ml Vial IVPUSH Q8H PRN Nausea and Vomiting Phenobarbital 45 mg 01/14/21 21:00 Phenobarbital 15 Mg Tablet PO 01/16/21 09:01 BID [facility] Phenobarbital 15 mg 01/16/21 21:00 Phenobarbital 15 Mg Tablet PO 01/18/21 09:01 BID [facility] Phenobarbital 15 mg 01/18/21 21:00 Phenobarbital 15 Mg Tablet PO 01/19/21 21:01 BEDTIME [facility] Sodium Chloride 3 ml 01/14/21 08:00 01/14/21 07:42 0.9 % Sodium Chloride Flush 3 Ml Syringe IVFLUSH 3 ml QSHIFT [facility] Administration Verapamil HCl 80 mg 01/14/21 09:00 01/14/21 07:43 Verapamil Hcl 80 Mg Tablet PO 80 mg TID [facility] Administration Protocol Labs CBC & Chem 7: 01/14/21 09:30 01/13/21 20:16 Assessment and Plan (1) Pneumonia: Status: Acute Assessment and Plan: 50-year-old male with past medical history of hypertension who presents to the hospital with complaints of right-sided chest pain found to have pneumonia # Sepsis-Resolved. Secondary to community-acquired pneumonia, COVID-19 negative, no other source of infection - Rocephin and Azithromyin - follow cultures # Chest pain. Seems pleuritic in nature. right-sided, worse with inspiration, although blood pressure slightly elevated but not significantly, noncardiac, troponin negative - CT angiogram of the chest is negative for any dissection or aneurysm, PE negative - pain control - rib xray # Alcohol abuse. - CIWA, monitor for signs of withdrawl # Hypertension - continue lisinopril # Hypothyroidism - continue levothyroxine Attending: Dr. Norton
[2021-01-14] MEDS: Acetaminophen 325 MG TABLET 650 MG PO ×2 (14:59→21:55)
[2021-01-14] MEDS: cefTRIAXone sodium 1 GM in 0.9 % Sodium Chloride 50 ML IV (21:55)
[2021-01-14] MEDS: PHENobarbitaL 15 MG TABLET 45 MG PO (22:12)
[2021-01-14] MEDS: Azithromycin 500 MG in 0.9 % Sodium Chloride 250 ML 125 MG IV (23:04)
[2021-01-15] VITALS: BP 130/83; PULSE 81; RESP 18; TEMP 35.7; O2SAT 98
[2021-01-15] MEDS: Morphine Sulfate 4 MG/ML CARTRIDGE IVPUSH ×5 (00:15→23:33)
[2021-01-15] MEDS: 0.9 % Sodium Chloride Flush 3 ML SYRINGE IVFLUSH ×3 (00:17→16:10)
[2021-01-15 03:53] VITALS: RESP 16
[2021-01-15 04:51] LABS: Basophils Absolute Auto 0.1 X10*3/uL (0.0-0.2); Basophils Percent Auto 0.3 % (0-2); Eosinophils Absolute Auto 0.1 X10*3/uL (0.0-0.4); Eosinophils Percent Auto 0.3 % (0-4); Hematocrit 35.1 % (42-52); Hemoglobin 11.8 g/dl (14.0-18.0); Imm Gran Abs Auto 0.29 X10*3/uL (0.00-0.03); Imm Gran Pct Auto 1.5 % (0.0-0.4); Lymphocytes Percent Auto 10.2 % (20-40); MANUAL DIFF FLAG SCAN; Mean Corpuscular HGB Conc 33.6 g/dl (31.0-36.0); Mean Corpuscular Hemoglobin 33.8 pg (27.0-33.0); Mean Corpuscular Volume 100.6 fL (80-98); Mean Platelet Volume 9.4 fL (9.4-12.4); Neutrophils Absolute Auto 15.2 X10*3/uL (2.0-8.3); Neutrophils Percent Auto 77.7 % (45-73); Platelet Count 187 X10*3/uL (160-400); Red Blood Count 3.49 X10*6/uL (4.60-5.80); Red Cell Distribution Width 12.7 % (11.0-16.0); SCAN SMEAR FLAG 1; White Blood Count 19.5 X10*3/uL (4.8-10.8)
[2021-01-15 05:18] LABS: Anion Gap 14 (12-20); Blood Urea Nitrogen 17 mg/dL (9-16); Calcium 8.3 mg/dL (8.4-10.2); Carbon Dioxide 24 mmol/L (22-29); Chloride 99 mmol/L (96-108); Creatinine Clr Calc Pharmacy 125.9; Estimated Glomerular Filt Rate > 60; Glucose Random 115 mg/dL (60-115); Potassium 4.5 mmol/L (3.3-5.1); SLIDE REVIEW VERIFIED; Sodium 132 mmol/L (135-145)
[2021-01-15] MEDS: Levothyroxine Sodium 175 MCG TABLET PO (06:15)
[2021-01-15] MEDS: Enoxaparin Sodium 40 MG/0.4 ML SYRINGE SUBCUT (06:16)
[2021-01-15 08:00] VITALS: BP 129/85; PULSE 80; RESP 16; TEMP 36.1; O2SAT 93
[2021-01-15 08:50] LABS: Alanine Aminotransferase 32 U/L (0-40); Albumin Level 3.5 g/dL (3.5-5.0); Alkaline Phosphatase 59 U/L (39-117); Aspartate Amino Transferase 24 U/L (5-37); Bilirubin Direct 0.6 mg/dL (0.0-0.5); Bilirubin Total 1.2 mg/dL (0.0-1.0); Total Protein 6.4 g/dL (6.5-8.0)
[2021-01-15] MEDS: lisinopriL 5 MG TABLET PO (09:06)
[2021-01-15] MEDS: PHENobarbitaL 15 MG TABLET 45 MG PO ×2 (09:06→22:43)
[2021-01-15] MEDS: Finasteride 5 MG TABLET PO (09:06)
[2021-01-15] MEDS: Acetaminophen 325 MG TABLET 650 MG PO (09:06)
[2021-01-15] MEDS: Ascorbic Acid 500 MG TABLET PO (09:06)
[2021-01-15] MEDS: VerapamiL HCL 80 MG TABLET PO ×3 (09:06→22:44)
[2021-01-15] MEDS: Escitalopram Oxalate 10 MG TABLET PO (09:07)
[2021-01-15] MEDS: guaiFENesin DM 200/20/10 ML 10 ML SYRUP PO ×2 (09:56→18:07)
--- NOTE | 2021-01-15 11:02 | HO.PM.IMPN ---
Subjective Subjective Date of Service: 01/15/21 Interval History: Follow up pneumonia. Still with right sided lung pain with inspiration and cough. Physical Exam Vital Signs: Vital Signs: Last Vital Signs Temp 97.0 F 01/15/21 08:00 Pulse 80 01/15/21 08:00 Resp 16 01/15/21 08:00 BP 129/85 01/15/21 08:00 Pulse Ox 93 01/15/21 08:00 Body Mass Index 31.0 Appearing in mild distress with pain to right side lung sounds are clear to auscultation heart regular rate rhythm, clear S1, S2 positive bowel sounds, abdomen is soft, nontender neuro patient is alert x3, no focal deficits Objective Data Current Medications Generic Name Dose Route Start Last Admin Trade Name Freq PRN Reason Stop Dose Admin Acetaminophen 650 mg 01/14/21 02:54 01/15/21 09:06 Acetaminophen 325 Mg Tablet PO 650 mg Q6H PRN Administration Pain, Mild (Pain Scale 1-3) Ascorbic Acid 500 mg 01/14/21 09:00 01/15/21 09:06 Ascorbic Acid 500 Mg Tablet PO 500 mg DAILY [facility] Administration Enoxaparin Sodium 40 mg 01/14/21 06:00 01/15/21 06:16 Enoxaparin Sodium 40 Mg/0.4 Ml Syringe SUBCUT 40 mg Q24H [facility] Administration Escitalopram Oxalate 10 mg 01/14/21 09:00 01/15/21 09:07 Escitalopram Oxalate 10 Mg Tablet PO 10 mg DAILY [facility] Administration Finasteride 5 mg 01/14/21 09:00 01/15/21 09:06 Finasteride 5 Mg Tablet PO 5 mg DAILY [facility] Administration Guaifenesin/Dextromethorphan 10 ml 01/15/21 09:23 01/15/21 09:56 Guaifenesin Dm 200/20/10 Ml 10 Ml Syrup PO 10 ml Q6H PRN Administration Cough Ceftriaxone Sodium 1 gm/ 50 mls @ 100 mls/hr 01/14/21 21:00 01/14/21 22:42 Sodium Chloride IV Infused Q24H [facility] Infusion Azithromycin 500 mg/ Sodium 250 mls @ 125 mls/hr 01/14/21 22:00 01/15/21 01:55 Chloride IV Infused Q24H [facility] Infusion Ketorolac Tromethamine 15 mg 01/15/21 11:00 Ketorolac Tromethamine 15 Mg/Ml Vial IV Q6H [facility] Levothyroxine Sodium 175 mcg 01/14/21 06:30 01/15/21 06:15 Levothyroxine Sodium 175 Mcg Tablet PO 175 mcg DAILY@0630 [facility] Administration Lisinopril 5 mg 01/14/21 09:00 01/15/21 09:06 Lisinopril 5 Mg Tablet PO 5 mg DAILY [facility] Administration Protocol Medication 1 each 01/14/21 09:00 No Benzodiazepines MISCELLANE DAILY [facility] Morphine Sulfate 4 mg 01/14/21 02:55 01/15/21 09:56 Morphine Sulfate 4 Mg/Ml Cartridge IVPUSH 4 mg Q4H PRN Administration Pain, Severe (Pain Scale 7-10) Multivitamins/Minerals 1 tab 01/14/21 09:00 01/15/21 09:05 Multivitamin With Minerals Tablet PO 1 tab DAILY [facility] Administration Ondansetron HCl 4 mg 01/14/21 02:54 Ondansetron Hcl 4 Mg/2 Ml Vial IVPUSH Q8H PRN Nausea and Vomiting Phenobarbital 45 mg 01/14/21 21:00 01/15/21 09:06 Phenobarbital 15 Mg Tablet PO 01/16/21 09:01 45 mg BID [facility] Administration Phenobarbital 15 mg 01/16/21 21:00 Phenobarbital 15 Mg Tablet PO 01/18/21 09:01 BID [facility] Phenobarbital 15 mg 01/18/21 21:00 Phenobarbital 15 Mg Tablet PO 01/19/21 21:01 BEDTIME [facility] Sodium Chloride 3 ml 01/14/21 08:00 01/15/21 09:07 0.9 % Sodium Chloride Flush 3 Ml Syringe IVFLUSH 3 ml QSHIFT [facility] Administration Verapamil HCl 80 mg 01/14/21 09:00 01/15/21 09:06 Verapamil Hcl 80 Mg Tablet PO 80 mg TID [facility] Administration Protocol Labs CBC & Chem 7: 01/15/21 04:37 01/15/21 04:37 Microbiology Microbiology Results: Microbiology 01/13/21 22:12 Blood - Venous Blood Culture - Preliminary No growth after 24 hours. 01/13/21 21:44 Blood - Venous Blood Culture - Preliminary No growth after 24 hours. Assessment and Plan (1) Pneumonia: Status: Acute Assessment and Plan: 50-year-old male with past medical history of hypertension who presents to the hospital with complaints of right-sided chest pain found to have pneumonia # Chest pain. Seems pleuritic in nature. right-sided, worse with inspiration, although blood pressure slightly elevated but not significantly, noncardiac, troponin negative - CT angiogram of the chest is negative for any dissection or aneurysm, PE negative - pain control - rib xray negative - Right upper quad US to rule out liver abnormality in light of alcohol use. - Add Toradol for pain. # Sepsis-Resolved. Secondary to community-acquired pneumonia, COVID-19 negative, no other source of infection - Rocephin and Azithromyin - follow cultures # Alcohol abuse. - CIWA, monitor for signs of withdrawal # Hypertension - continue lisinopril # Hypothyroidism - continue levothyroxine Dispo: Possible discharge tomorrow if stable. Attending: Dr. Norton
[2021-01-15 12:00] VITALS: BP 150/79; PULSE 76; RESP 18; TEMP 37.1; O2SAT 95
[2021-01-15] MEDS: Ketorolac Tromethamine 15 MG/ML VIAL IV ×3 (13:44→22:42)
[2021-01-15 15:12] VITALS: BP 134/70; PULSE 79; RESP 20; TEMP 36.3; O2SAT 94
[2021-01-15 19:12] VITALS: BP 123/66; PULSE 78; RESP 20; TEMP 37.4; O2SAT 93
[2021-01-15] MEDS: cefTRIAXone sodium 1 GM in 0.9 % Sodium Chloride 50 ML IV (22:43)
[2021-01-15] MEDS: Azithromycin 500 MG in 0.9 % Sodium Chloride 250 ML 125 MG IV (23:31)
[2021-01-16] VITALS: BP 116/66; PULSE 74; RESP 18; TEMP 36.4; O2SAT 97
[2021-01-16 03:10] VITALS: BP 111/67; PULSE 69; RESP 16; TEMP 36.3; O2SAT 97
[2021-01-16] MEDS: Ketorolac Tromethamine 15 MG/ML VIAL IV (04:54)
[2021-01-16] MEDS: guaiFENesin DM 200/20/10 ML 10 ML SYRUP PO (04:56)
[2021-01-16] MEDS: Morphine Sulfate 4 MG/ML CARTRIDGE IVPUSH ×2 (05:18→09:32)
[2021-01-16] MEDS: Levothyroxine Sodium 175 MCG TABLET PO (05:21)
[2021-01-16] MEDS: Enoxaparin Sodium 40 MG/0.4 ML SYRINGE SUBCUT (05:22)
[2021-01-16 06:42] LABS: Basophils Percent Auto 0.3 % (0-2); Eosinophils Absolute Auto 0.1 X10*3/uL (0.0-0.4); Eosinophils Percent Auto 0.9 % (0-4); Hemoglobin 11.3 g/dl (14.0-18.0); Imm Gran Abs Auto 0.28 X10*3/uL (0.00-0.03); Imm Gran Pct Auto 1.9 % (0.0-0.4); Lymphocytes Absolute Auto 1.6 X10*3/uL (1.2-4.9); Lymphocytes Percent Auto 10.4 % (20-40); MANUAL DIFF FLAG SCAN; Mean Corpuscular HGB Conc 33.2 g/dl (31.0-36.0); Mean Corpuscular Hemoglobin 33.2 pg (27.0-33.0); Monocytes Absolute Auto 1.7 X10*3/uL (0.1-1.2); Monocytes Percent Auto 11.5 % (2-11); Neutrophils Absolute Auto 11.2 X10*3/uL (2.0-8.3); Platelet Count 184 X10*3/uL (160-400); Red Cell Distribution Width 12.4 % (11.0-16.0); SCAN SMEAR FLAG 1; White Blood Count 14.9 X10*3/uL (4.8-10.8)
[2021-01-16 07:28] LABS: Anion Gap 15 (12-20); Blood Urea Nitrogen 18 mg/dL (9-16); Calcium 7.5 mg/dL (8.4-10.2); Carbon Dioxide 24 mmol/L (22-29); Chloride 97 mmol/L (96-108); Creatinine Clr Calc Pharmacy 136.3; Estimated Glomerular Filt Rate > 60; Glucose Random 97 mg/dL (60-115); Potassium 3.7 mmol/L (3.3-5.1); Sodium 132 mmol/L (135-145)
[2021-01-16 07:37] LABS: SLIDE REVIEW VERIFIED
[2021-01-16 08:00] VITALS: BP 114/66; PULSE 70; RESP 16; TEMP 36.3; O2SAT 96
[2021-01-16] MEDS: 0.9 % Sodium Chloride Flush 3 ML SYRINGE IVFLUSH (09:23)
[2021-01-16] MEDS: Ascorbic Acid 500 MG TABLET PO (09:24)
[2021-01-16] MEDS: PHENobarbitaL 15 MG TABLET 45 MG PO (09:25)
[2021-01-16] MEDS: VerapamiL HCL 80 MG TABLET PO (09:25)
[2021-01-16] MEDS: lisinopriL 5 MG TABLET PO (09:26)
[2021-01-16] MEDS: Escitalopram Oxalate 10 MG TABLET PO (09:26)
[2021-01-16] MEDS: Finasteride 5 MG TABLET PO (09:26)
--- NOTE | 2021-01-16 13:09 | P.DS_ITS ---
DS: Providers Provider Date of Service: 01/16/21 <Maricarmen Varghese NP - Last Filed: 01/16/21 14:15> 01/16/21 <Alistair Norton MD - Last Filed: 01/17/21 15:21> Date of admission: 01/14/21 02:54 <Maricarmen Varghese NP - Last Filed: 01/16/21 14:15> Primary care physician: Brent Stewart MD <Maricarmen Varghese NP - Last Filed: 01/16/21 14:15> DS: Diagnosis Discharge Diagnosis (1) Sepsis: Status: Acute <Maricarmen Varghese NP - Last Filed: 01/16/21 14:15> (2) Pneumonia: Status: Acute <Maricarmen Varghese NP - Last Filed: 01/16/21 14:15> (3) Alcohol withdrawal: Status: Acute <Maricarmen Varghese NP - Last Filed: 01/16/21 14:15> DS: Medications Discharge Medications Home Medications: Home Medications Medication Instructions Recorded Confirmed ascorbic acid (vitamin C) 500 mg 500 mg PO DAILY 07/19/20 01/14/21 tablet multivitamin with minerals 1 tab PO DAILY 07/19/20 01/14/21 omega-3 fatty acids 1,000 mg 1,000 mg PO DAILY 07/19/20 01/14/21 capsule citalopram 1 tab PO DAILY 01/14/21 01/14/21 finasteride 1 tab PO DAILY 01/14/21 01/14/21 levothyroxine 1 tab PO DAILY 01/14/21 01/14/21 lisinopril 1 tab PO DAILY 01/14/21 01/14/21 verapamil 1 tab PO TID 01/14/21 01/14/21 Previous Rx's Medication Instructions Recorded azithromycin 500 mg PO DAILY 3 Days #3 tab 01/16/21 cefuroxime axetil 500 mg PO BID #10 tab 01/16/21 ibuprofen 800 mg PO Q8H PRN #9 tab 01/16/21 oxycodone 5 mg PO Q8H PRN #6 tab 01/16/21 <Maricarmen Varghese NP - Last Filed: 01/16/21 14:15> DS: Summary Hospital Course Hospital Course: HP as per admitting provider This is a 50-year-old male with past medical history of BPH, hypertension, hypothyroidism, anxiety and depression, who presents to the hospital with complaints of right-sided chest pain that feels like tearing, 10/10, radiating to the back, associated with a cough, sputum production. Patient reports that his symptoms started the night before, pain is worse with inspiration, and movement. He has no headache, change in vision, no palpitations, no abdominal pain nausea or vomiting, no diarrhea constipation, no urinary symptoms and no lower extremity edema. On arrival to the ED hemodynamically stable with no significant abnormal vitals except for a respiratory rate of 22. Blood pressure 140/7 did have remained in that range Labs are significant for WBC count of 26.7, hemoglobin of 13.7, hematocrit of 40.0, PT 14.9, INR of 1.3, PTT of 59.5, ferritin of 799, total bili of 1.5, direct of 0.6, COVID-19 negative, CT chest angiogram shows no aneurysm or dissection of the thoracic aorta, lung shows right basilar atelectasis/infiltrate, no pleural effusion or pneumothorax, the liver also shows hepatic steatosis . Sepsis secondary to Community acquired pneumonia. No elevated lactic acid or hypotension. Blood cultures were negative. He was treated with IV Antibiotics and symptoms improved. He is discharged with Ceftin and azithromycin. Pleuritic chest pain. Chest CTA, rib xray were negative for abnormalities. Pain from pleurisy secondary to pneumonia. Improved significantly with IV toradol and morphine. He is discharged with Ibuprofen and Oxycodone for pain. Alcohol abuse. Treated with phenobarbitol. Encouraged to stop using alcohol. Attending: Dr. Norton. Patient seen and examined independently and I was present during zapata portion of E/M service. Agree with Charlene Varghese NP's history, physical, assessment, and plan. Sepsis resolved. A febrile and tolerating RA. Pleuritic chest pain resolved -- was ruled out for PE. Treated with pheno for alcohol withdrawal which resolved. Cessation was strongly encouraged. To complete a course of antibiotics for pneumonia. <Maricarmen Varghese NP - Last Filed: 01/16/21 14:15> Time Spent with Patient Time attestation: Total time spent providing and/or coordinating discharge services: <Maricarmen Varghese NP - Last Filed: 01/16/21 14:15> Discharge coordination time: Greater than 30 minutes <Maricarmen Varghese NP - Last Filed: 01/16/21 14:15> Physical Exam Vital Signs: Vital Signs: Last Vital Signs Temp 97.3 F 01/16/21 08:00 Pulse 70 01/16/21 08:00 Resp 16 01/16/21 08:00 BP 114/66 01/16/21 08:00 Pulse Ox 96 01/16/21 08:00 Body Mass Index 31.0 <Maricarmen Varghese NP - Last Filed: 01/16/21 14:15> Appearing in no acute distress head is normocephalic atraumatic eyes pupils are PERRLA sclera is anicteric mouth throat mucous membranes are intact and moist neck is supple no lymphadenopathy, no JVD noted lung sounds are clear to auscultation heart regular rate rhythm, clear S1, S2 positive bowel sounds, abdomen is soft, nontender neuro patient is alert x3, no focal deficits <Maricarmen Varghese NP - Last Filed: 01/16/21 14:15> DS: Data Data Completed and Pending Labs on day of discharge: Laboratory Results - last 24 hr 01/16/21 01/16/21 05:54 05:54 WBC 14.9 H RBC 3.40 L Hgb 11.3 L Hct 34.0 L MCV 100.0 H MCH 33.2 H MCHC 33.2 RDW 12.4 Plt Count 184 MPV 10.0 Immature Gran % (Auto) 1.9 H Neut % (Auto) 75.0 H Lymph % (Auto) 10.4 L [place] % (Auto) 11.5 H Eos % (Auto) 0.9 Baso % (Auto) 0.3 Lymph # (Auto) 1.6 [place] # (Auto) 1.7 H Eos # (Auto) 0.1 Baso # (Auto) 0.0 Abs Immat Gran (auto) 0.28 H Absolute Neuts (auto) 11.2 H Absolute Nucleated RBC 0.000 Nucleated RBC % (auto) 0.0 Smear Tech's Comments VERIFIED Sodium 132 L Potassium 3.7 Chloride 97 Carbon Dioxide 24 Anion Gap 15 BUN 18 H Creatinine 0.73 Estim Creat Clear Calc 136.3 Estimated GFR > 60 Random Glucose 97 Calcium 7.5 L D Preliminary micro results at discharge 01/13/21 22:12 Blood Culture - Preliminary Blood - Venous No growth after 48 hours. 01/13/21 21:44 Blood Culture - Preliminary Blood - Venous No growth after 48 hours. <Maricarmen Varghese NP - Last Filed: 01/16/21 14:15> Discharge Plan Discharge Anticipated Discharge Date/Time: 01/16/21 09:43 <Maricarmen Varghese NP - Last Filed: 01/16/21 14:15> Patient Disposition: Home, Self-Care <Maricarmen Varghese NP - Last Filed: 01/16/21 14:15> Referrals: Brent Stewart MD [Primary Care Provider] - <Maricamren Varghese NP - Last Filed: 01/16/21 14:15> Discharge Medications: New cefuroxime axetil 500 mg tablet 500 mg PO BID Qty: 10 RF: 0 azithromycin 500 mg tablet 500 mg PO DAILY 3 Days Qty: 3 RF: 0 ibuprofen 800 mg tablet 800 mg PO Q8H PRN (Reason: pleuritic pain ) Qty: 9 RF: 0 oxycodone 5 mg tablet 5 mg PO Q8H PRN (Reason: PLEURITIC CHEST PAIN ) Qty: 6 RF: 0 Continued levothyroxine 175 mcg tablet 1 tab PO DAILY RF: 0 citalopram 20 mg tablet 1 tab PO DAILY RF: 0 lisinopril 5 mg tablet 1 tab PO DAILY RF: 0 verapamil 80 mg tablet 1 tab PO TID RF: 0 finasteride 5 mg tablet 1 tab PO DAILY RF: 0 omega-3 fatty acids [Fish Oil Concentrate] 1,000 mg capsule 1,000 mg PO DAILY RF: 0 multivitamin with minerals [Men's One Daily] Tablet 1 tab PO DAILY RF: 0 ascorbic acid (vitamin C) 500 mg tablet 500 mg PO DAILY RF: 0 <Maricarmen Varghese NP - Last Filed: 01/16/21 14:15> Discharge Orders: Discharge Order (Routine); Ordered 01/16/21 Ordered By: Maricarmen Varghese <Maricarmen Varghese NP - Last Filed: 01/16/21 14:15> Diet: advance to usual diet <Maricarmen Varghese NP - Last Filed: 01/16/21 14:15> advance to usual diet <Alistair Norton MD - Last Filed: 01/17/21 15:21> Activity on Discharge: As tolerated <Maricarmen Varghese NP - Last Filed: 01/16/21 14:15> As tolerated <Alistair Norton MD - Last Filed: 01/17/21 15:21> Stand Alone Forms: Patient Portal Discharge page <Maricarmen Varghese NP - Last Filed: 01/16/21 14:15> Care Plan Goals: Resolution of pleuritic pain from pneumonia <Maricarmen Varghese NP - Last Filed: 01/16/21 14:15> Health Concerns: Pneumonia Pleuritic chest pain <Maricarmen Varghese NP - Last Filed: 01/16/21 14:15> Plan of Treatment: Follow up with primary care provider as needed Continue antibiotic treatment as prescribed <Maricarmen Varghese NP - Last Filed: 01/16/21 14:15> Discharge Date/Time: 01/16/21 10:40 <Maricarmen Varghese NP - Last Filed: 01/16/21 14:15>
[2021-01-18 01:26] LABS: Strep Pneumo Ag urine Not Detected (Not Detected)
[2021-01-24 11:46] LABS: Legionella Ag Urine Not Detected (Not Detected)
== END 2021-01-16 10:40 | disposition home or self-care (01) | DRG 720 ==
LOC: HO.ED 01-14 01:49 → HO.S3 01-14 03:11
PROVIDERS: Nurse Practitioner Acute Care; Physician Assistant; Admitting Provider Internal Medicine; Emergency Provider Emergency Medicine Emergency Medical Services; PCP Internal Medicine; Visit Provider Family Medicine
DX: A41.9 Sepsis, unspecified organism (principal); J18.9 Pneumonia, unspecified organism; F32.9 Major depressive disorder, single episode, unspecified; E03.9 Hypothyroidism, unspecified; R09.1 Pleurisy; F41.9 Anxiety disorder, unspecified; N40.0 Benign prostatic hyperplasia without lower urinary tract symptoms; F10.10 Alcohol abuse, uncomplicated; Z20.822 Contact with and (suspected) exposure to COVID-19; Z88.0 Allergy status to penicillin; Z88.2 Allergy status to sulfonamides; Z79.1 Long term (current) use of non-steroidal anti-inflammatories (NSAID); Z79.890 Hormone replacement therapy; Z79.899 Other long term (current) drug therapy
CPT/HCPCS: 36415; 71045; 71101; 71275; 76705; 80048; 80053; 80076; 82728; 83605; 83615; 84145; 84484; 85025; 85027; 85379; 85610; 85730; 87040; 87449; 87635; 87899; 93005; 96365; 96366; 96368; 96375; 99285; J0456; J0696; J1650; J1885; J2060; J2270; J2560; Q9967

== ENCOUNTER 2021-02-01 11:58 | Outpatient (REF) | payer BC, SELFPAY ==
--- NOTE | ~2021-02-01 | XR_ITS ---
EXAMINATION: XR CHEST CLINICAL INFORMATION: Pneumonia. COMPARISON: 01/14/21. CT scan of 01/13/21. TECHNIQUE: 2 views of the chest were obtained. FINDINGS: There is residual patchy airspace opacity at the right lung base improved from priors. Patchy opacity seen previously at the left lung bases clear. There is a small right pleural effusion. The heart and mediastinal structures are normal. XR/XR chest 2V IMPRESSION: Mild patchy airspace opacity right lung base improved from previous. Small right pleural effusion.
== END 2021-02-01 11:59 | disposition home or self-care (01) ==
LOC: HO.XRAY 11:58
PROVIDERS: PCP Internal Medicine; Visit Provider Internal Medicine
DX: J18.9 Pneumonia, unspecified organism (principal); R06.00 Dyspnea, unspecified; R07.81 Pleurodynia
CPT/HCPCS: 71046

== ENCOUNTER 2021-05-06 09:11 | Outpatient (REF) | payer BC, SELFPAY ==
[2021-05-06 11:02] LABS: PSA,Total (Free>4and<10) 10.23 ng/mL (0.00-4.00)
== END 2021-05-06 09:12 | disposition home or self-care (01) ==
LOC: HO.10HDL 09:11
PROVIDERS: Visit Provider Urology
DX: Z12.5 Encounter for screening for malignant neoplasm of prostate (principal); N13.8 Other obstructive and reflux uropathy; N40.1 Benign prostatic hyperplasia with lower urinary tract symptoms
CPT/HCPCS: 36415; 84153

== ENCOUNTER → 2021-05-14 13:50 | Outpatient (BNVA) | payer BC, SELFPAY | PROVIDERS: PCP Internal Medicine; Visit Provider Urology ==

== ENCOUNTER 2021-10-24 12:56 | Outpatient (REF) | payer BC, SELFPAY ==
[2021-10-24 14:00] LABS: MANUAL DIFF FLAG NO
[2021-10-24 14:04] LABS: Basophils Absolute Auto 0.1 X10*3/uL (0.0-0.2); Basophils Percent Auto 0.3 % (0-2); Eosinophils Absolute Auto 0.2 X10*3/uL (0.0-0.4); Eosinophils Percent Auto 1.6 % (0-4); Hematocrit 40.3 % (42.0-52.0); Hemoglobin 13.7 g/dl (14.0-18.0); Imm Gran Abs Auto 0.13 X10*3/uL (0.00-0.03); Imm Gran Pct Auto 0.9 % (0.0-0.4); Lymphocytes Absolute Auto 2.4 X10*3/uL (1.2-4.9); Lymphocytes Percent Auto 15.9 % (20-40); Mean Corpuscular Hemoglobin 33.8 pg (27.0-33.0); Mean Corpuscular Volume 99.5 fL (80.0-98.0); Mean Platelet Volume 10.3 fL (9.4-12.4); Monocytes Absolute Auto 1.8 X10*3/uL (0.1-1.2); Monocytes Percent Auto 12.2 % (2-11); Neutrophils Absolute Auto 10.2 x10*3/uL (2.0-8.3); Neutrophils Percent Auto 69.1 % (45-73); Platelet Count 174 X10*3/uL (160-400); Red Blood Count 4.05 X10*6/uL (4.60-5.80); Red Cell Distribution Width 12.2 % (11.0-16.0); SCAN SMEAR FLAG 1; White Blood Count 14.8 X10*3/uL (4.8-10.8)
[2021-10-24 14:23] LABS: Alanine Aminotransferase 44 U/L (0-40); Albumin Level 4.1 g/dL (3.5-5.0); Alkaline Phosphatase 62 U/L (39-117); Anion Gap 12 (12-20); Aspartate Amino Transferase 26 U/L (5-37); Bilirubin Total 0.9 mg/dL (0.0-1.0); Blood Urea Nitrogen 14 mg/dL (9-16); Calcium 9.1 mg/dL (8.4-10.2); Carbon Dioxide 28 mmol/L (22-29); Chloride 105 mmol/L (96-108); Estimated Glomerular Filt Rate > 60; Glucose Random 116 mg/dL (60-115); Potassium 4.6 mmol/L (3.3-5.1); Sodium 140 mmol/L (135-145); Total Protein 6.9 g/dL (6.5-8.0)
[2021-10-24 14:45] LABS: Free T4 (Free Thyroxine) 0.87 ng/dL (0.71-1.85); Thyroid Stimulating Hormone 1.49 uIU/mL (0.32-4.0); Vitamin D 25-OH Total 27.3 ng/mL (>30)
[2021-10-24 14:57] LABS: PSA,Total (Free>4and<10) 14.04 ng/mL (0.00-4.00)
== END 2021-10-24 12:57 | disposition home or self-care (01) ==
LOC: HO.10HDL 12:56
PROVIDERS: Urology; Visit Provider Internal Medicine
DX: Z00.00 Encounter for general adult medical examination without abnormal findings (principal); K62.5 Hemorrhage of anus and rectum; I10 Essential (primary) hypertension; R97.20 Elevated prostate specific antigen [PSA]; N13.8 Other obstructive and reflux uropathy; N40.1 Benign prostatic hyperplasia with lower urinary tract symptoms; E03.9 Hypothyroidism, unspecified; E78.00 Pure hypercholesterolemia, unspecified; E55.9 Vitamin D deficiency, unspecified
CPT/HCPCS: 36415; 80053; 82306; 84153; 84439; 84443; 85025

== ENCOUNTER → 2021-10-31 08:29 | Outpatient (BNVA) | payer BC, SELFPAY | PROVIDERS: PCP Internal Medicine; Referring Provider Internal Medicine; Visit Provider Nurse Practitioner ==

== ENCOUNTER → 2021-11-14 08:23 | Outpatient (BNVA) | payer BC, SELFPAY | PROVIDERS: PCP Internal Medicine; Visit Provider Urology ==

== ENCOUNTER 2022-01-23 08:28 | Outpatient (REF) | payer BC, SELFPAY ==
--- NOTE | ~2022-01-23 | XR_ITS ---
EXAMINATION: XR AP BILATERAL KNEE. RIGHT KNEE CLINICAL INFORMATION: Right knee pain. COMPARISON: None. TECHNIQUE: AP bilateral knee standing. Right knee 2 views. FINDINGS: Ap Bilateral Knee: The medial and lateral compartment joint spaces are maintained normal. No bony erosive changes. The soft tissues are normal. Right Knee: There is mild loss of patellofemoral compartment joint space with mild lateral patellar spurring and anterior patellar enthesophyte. No fracture seen. No abnormal joint effusion or loose bodies. XR/XR knee RT 2V IMPRESSION: Minimal right lateral patellar spurring and a small anterior mid patellar enthesophyte.
--- NOTE | ~2022-01-23 | XR_ITS ---
EXAMINATION: XR AP BILATERAL KNEE. RIGHT KNEE CLINICAL INFORMATION: Right knee pain. COMPARISON: None. TECHNIQUE: AP bilateral knee standing. Right knee 2 views. FINDINGS: Ap Bilateral Knee: The medial and lateral compartment joint spaces are maintained normal. No bony erosive changes. The soft tissues are normal. Right Knee: There is mild loss of patellofemoral compartment joint space with mild lateral patellar spurring and anterior patellar enthesophyte. No fracture seen. No abnormal joint effusion or loose bodies. XR/XR knee standing BI IMPRESSION: Minimal right lateral patellar spurring and a small anterior mid patellar enthesophyte.
== END 2022-01-23 08:29 | disposition home or self-care (01) ==
LOC: HO.HOSX 08:28
PROVIDERS: Visit Provider Orthopaedic Surgery
DX: M23.91 Unspecified internal derangement of right knee (principal)
CPT/HCPCS: 73560; 73565

== ENCOUNTER 2022-02-06 08:46 | Outpatient (REF) | payer BC, SELFPAY ==
--- NOTE | ~2022-02-06 | MR_ITS ---
EXAMINATION: MR KNEE WITHOUT CONTRAST, RIGHT CLINICAL INFORMATION: Pain. Patient reports pain, weakness, locking, lateral meniscal surgery 8 years ago. COMPARISON: X-ray 01/23/2022 TECHNIQUE: MRI of the knee without contrast was performed using routine sequences on a high-field scanner. FINDINGS: MENISCI: Medial Meniscus: Focal inner margin fraying/small radial tear in the posterior horn. Lateral Meniscus: There is undersurface degenerative fraying in the posterior root/central posterior horn. LIGAMENTS: Cruciate: Intact Collateral: Intact EXTENSOR MECHANISM: Intact ARTICULAR CARTILAGE/BONE: Patellofemoral Compartment: There is cartilage thinning with areas of fissuring in the central patella and lateral patellar facet. Trochlear cartilage is preserved Medial Compartment: No significant cartilage loss Lateral Compartment: No significant cartilage loss Marrow signal is within normal limits. No evidence of fracture. JOINT FLUID AND BURSAE: Small effusion. Small Oviedo's cyst, with a 8 mm loose body within it. Additional loose body most superiorly measuring 9 mm, located posterior to the capsule versus within Oviedo's cyst as well. MR/MR knee RT wo con IMPRESSION: 1. Focal inner margin fraying/small radial tear in the posterior horn of the medial meniscus. 2. Undersurface degenerative fraying of the posterior root/central posterior horn of lateral meniscus. 3. 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 4. Small effusion. Small Oviedo's cyst, with 8mm loose body within it. Additional 9 mm loose body, as detailed above.,
== END 2022-02-06 08:47 | disposition home or self-care (01) ==
LOC: HO.MRI 08:46
PROVIDERS: Visit Provider Orthopaedic Surgery
DX: M23.91 Unspecified internal derangement of right knee (principal)
CPT/HCPCS: 73721

== ENCOUNTER → 2022-02-13 10:08 | Outpatient (BNVA) | payer BC, SELFPAY | PROVIDERS: PCP Internal Medicine; Visit Provider Orthopaedic Surgery | DX: Z13.89 Encounter for screening for other disorder (principal) ==

== ENCOUNTER → 2022-03-13 08:52 | Outpatient (BNVA) | payer BC, SELFPAY | PROVIDERS: Visit Provider Physician Assistant | DX: M17.11 Unilateral primary osteoarthritis, right knee (principal) ==

== ENCOUNTER 2022-03-19 08:44 | Day surgery (SDC) | payer BC, SELFPAY ==
[2022-03-12 15:49] VITALS: BMI 33.3
--- NOTE | 2022-03-18 08:37 | HO.ANESPROP2 ---
Documented by User: Tamara Silva NP 03/18/22 08:40 HPI - Anesthesia Eval Consult details Narrative: 51yo M for Right Knee Arthroscopy PMFSH Active Problems Active Problems: All Active Problems (Updated 02/13/22 @ 10:53 by Dragan Polk) Dysuria (Acute) Acute diarrhea (Acute) Elevated PSA (Acute) Anxiety and depression (Acute) Alcohol withdrawal (Acute) Dyspnea (Acute) BPH w urinary obs/LUTS (Acute) Annual physical exam (Acute) Rectal bleeding (Acute) Staph infection (Acute) Acute meniscal injury of right knee (Acute) Osteoarthritis of right knee (Acute) Patellofemoral arthritis of right knee (Acute) Depression (Acute) Obesity (BMI 30-39.9) (Acute) Anxiety (Acute) Hypertriglyceridemia (Acute) Supraventricular tachycardia (Acute) Acquired hypothyroidism (Acute) Benign essential hypertension (Acute) Pleuritic chest pain (Acute) Pneumonia (Acute) Sepsis (Acute) Past Medical History Medical History Acquired hypothyroidism Anxiety Benign essential hypertension BPH w urinary obs/LUTS Depression Hepatic steatosis HTN (hypertension) Hypertriglyceridemia Obesity (BMI 30-39.9) Pleuritic chest pain Pneumonia Sepsis Supraventricular tachycardia Family History Family History Father CVD (cardiovascular disease) Heart attack Rheumatoid arthritis Mother Dementia Surgical History Surgical History History of back surgery History of colonoscopy History of cystoscopy Hx of meniscectomy of right knee Social History Social History Household Members: Significant Other Housing: House Do you presently have visiting nurse or other home services: No Alcohol intake: current Alcohol intake frequency: a few times a week Alcohol type: wine Patient Tobacco Use Status: Current everyday Tobacco user Tobacco use type: Cigarette Cigarettes Per Day: 3 Years Smoked: when I drink e-Cigarette/Vaping Use: Never Used Second Hand Smoke Exposure: No Advance Directives Date on File: 02/23/19 service: No Current occupational status: employed 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 Cognitive needs: No Hearing needs: No Vision needs: No Meds Allergies Allergy/AdvReac Type Severity Reaction Status Date / Time sulfamethoxazole Allergy Intermediate mucosal Verified 03/13/22 08:57 [From Bactrim] and hand rash/scaling trimethoprim [From Bactrim] Allergy Intermediate mucosal Verified 03/13/22 08:57 and hand rash/scaling amoxicillin Allergy Unknown Unknown Verified 03/13/22 08:57 fenofibrate [From TRICOR] Allergy Unknown UNKNOWN Verified 03/13/22 08:57 Home Medications Medication Instructions Recorded Confirmed Last Taken Type ascorbic acid (vitamin C) 500 mg 500 mg PO DAILY 07/19/20 03/13/22 Unknown History tablet multivitamin with minerals (Men's 1 tab PO DAILY 07/19/20 03/13/22 Unknown History One Daily) omega-3 fatty acids 1,000 mg 1,000 mg PO DAILY 07/19/20 03/13/22 Unknown History capsule (Fish Oil Concentrate) diclofenac sodium 1 % topical gel 1 ea TOPICAL DAILY 01/18/21 03/13/22 Unknown History mupirocin 2 % topical ointment TOPICAL TID 03/13/22 Unknown History Exam Exam Date and Time: March 18, 2022 0837 Height,Weight and Vital Signs: Height 5 ft 9 in Weight 102.512 kg Pertinent Lab Results Pertinent Lab Results: Laboratory Tests 10/24/21 10/24/21 13:00 13:00 WBC 14.8 H Hgb 13.7 L Hct 40.3 L Plt Count 174 Sodium 140 Potassium 4.6 D Chloride 105 Carbon Dioxide 28 BUN 14 Creatinine 0.78 Narrative Narrative: EKG 12/2020 Vent. Rate : 083 BPM ? ? Atrial Rate : 083 BPM ?? P-R Int : 142 ms? QRS Dur : 100 ms ? ? QT Int : 384 ms ? ? ? P-R-T Axes : 032 004 013 degrees ?? QTc Int : 451 ms ? Normal sinus rhythm Nonspecific T wave changes When compared with ECG of 24-FEB-2019 02:09, No significant changes seen Assessment and Plan Assessment Anesthesia Assessment: Chart Reviewed Documented by User: Dejon Kitchen MD 03/19/22 17:15 [facility] Past Medical History Medical History Acquired hypothyroidism Anxiety Benign essential hypertension BPH w urinary obs/LUTS Depression Hepatic steatosis HTN (hypertension) Hypertriglyceridemia Obesity (BMI 30-39.9) Pleuritic chest pain Pneumonia Sepsis Supraventricular tachycardia Family History Family History Father CVD (cardiovascular disease) Heart attack Rheumatoid arthritis Mother Dementia Family history of problems with anesthesia: No Surgical History Surgical History History of back surgery History of colonoscopy History of cystoscopy Hx of meniscectomy of right knee History of Problems with Anesthesia: No Social History Social History Household Members: Significant Other Housing: House Do you presently have visiting nurse or other home services: No Alcohol intake: current Alcohol intake frequency: a few times a week Alcohol type: wine Patient Tobacco Use Status: Current everyday Tobacco user Tobacco use type: Cigarette Cigarettes Per Day: 3 Years Smoked: when I drink e-Cigarette/Vaping Use: Never Used Second Hand Smoke Exposure: No Advance Directives Date on File: 02/23/19 service: No Current occupational status: employed 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 Cognitive needs: No Hearing needs: No Vision needs: No Meds Allergies Allergy/AdvReac Type Severity Reaction Status Date / Time sulfamethoxazole Allergy Intermediate mucosal Verified 03/13/22 08:57 [From Bactrim] and hand rash/scaling trimethoprim [From Bactrim] Allergy Intermediate mucosal Verified 03/13/22 08:57 and hand rash/scaling amoxicillin Allergy Unknown Unknown Verified 03/13/22 08:57 fenofibrate [From TRICOR] Allergy Unknown UNKNOWN Verified 03/13/22 08:57 Home Medications Medication Instructions Recorded Confirmed Last Taken Type ascorbic acid (vitamin C) 500 mg 500 mg PO DAILY 07/19/20 03/13/22 Unknown History tablet multivitamin with minerals (Men's 1 tab PO DAILY 07/19/20 03/13/22 Unknown History One Daily) omega-3 fatty acids 1,000 mg 1,000 mg PO DAILY 07/19/20 03/13/22 Unknown History capsule (Fish Oil Concentrate) diclofenac sodium 1 % topical gel 1 ea TOPICAL DAILY 01/18/21 03/13/22 Unknown History mupirocin 2 % topical ointment TOPICAL TID 03/13/22 Unknown History Exam Airway Mallampati Class: III TM Dist: >3cm Neck ROM: Full Loose/Missing/Broken Teeth: Yes (Chipped teeth ) Heart: S1, S2 Lungs: b/l breath sounds Assessment and Plan Assessment Anesthesia Assessment: Anesthesia Plan Discussed Final Anesthetic Review Family History of Problems with Anesthesia: No History of Problems with Anesthesia: No NPO: Yes ASA Class: III Final Preanesthetic Review: Meds/Allgs Chart Reviewed, Consent Obtained/Reviewed and Anes Risks/Benef Reviewed Patient Risk: Intermediate Procedure Risk: Intermediate Anesthetic Plan Anesthetic Plan: GA Disposition: Standard PACU
[2022-03-19 09:17] VITALS: BP 144/89; PULSE 62; RESP 16; TEMP 36.4; O2SAT 96
[2022-03-19] MEDS: Lactated Ringers 1,000 ML 100 ML IVCONT (09:18)
--- NOTE | 2022-03-19 10:03 | MHC.SHP ---
Pre-Procedural Eval Section A Date of Service: 03/19/22 The patient is an INPATIENT: No Changes since office visit: Yes Patient answered all questions; No Cold of Flu in the past 2 weeks, No New Medical Problems and No Changes in Medication The History & Physical has been completed within 30 days and I have reviewed it.: Yes Section B Chief Complaint: knee injury Allergies: Allergies Allergy/AdvReac Type Severity Reaction Status Date / Time sulfamethoxazole Allergy Intermediate mucosal Verified 03/13/22 08:57 [From Bactrim] and hand rash/scaling trimethoprim [From Bactrim] Allergy Intermediate mucosal Verified 03/13/22 08:57 and hand rash/scaling amoxicillin Allergy Unknown Unknown Verified 03/13/22 08:57 fenofibrate [From TRICOR] Allergy Unknown UNKNOWN Verified 03/13/22 08:57 Plan I have reviewed the history and physical and performed a pertinent physical examination on my patient. No changes have occurred unless specified.
--- NOTE | 2022-03-19 12:29 | PM.OP ---
Brief Operative Note Date of Service: 03/19/22 Pre-op diagnosis: knee locking Post-op diagnosis: other (Chondromalacia, anterior interval plica and loose bodies) Procedure: Chondroplasty, removal of loose bodies and plica resection Surgeon: Mitchell Hernadez MD Anesthesia: GETA and local Was an Slate Splitter used for this Procedure?: No Estimated blood loss (mL): 0 Tourniquet time (min): 16 IV fluids (mL): 800 Pathology: none sent Condition: stable Disposition: PACU
[2022-03-19 12:35] VITALS: BP 125/70; PULSE 67; RESP 18; TEMP 37; O2SAT 97
[2022-03-19 12:40] VITALS: BP 117/81; PULSE 69; RESP 16; O2SAT 94
--- NOTE | 2022-03-19 12:44 | P.OP_ITS ---
Operative Note Operative Note Date of Service: 03/19/22 Narrative: Date of Service:?03/19/22 Pre-op diagnosis: knee locking Post-op diagnosis:?other (Chondromalacia, anterior interval plica and loose bodies) Procedure: Chondroplasty, removal of loose bodies and plica resection Surgeon: Mitchell Hernadez MD Anesthesia:?GETA and local Was an Lockstitch Lining Setter used for this Procedure?:?No Estimated blood loss (mL):?0 Tourniquet time (min):?16 IV fluids (mL):?800 Pathology:?none sent Condition:?stable Disposition:?PACU Procedure in detail: The patient was brought to the operating room placed supine on the arthroscopic table and prepped and draped in standard sterile fashion. A time-out was called to identify proper site proper procedure proper surgeon and IV antibiotics per weight were administered. I began by exsanguinating the limb and insufflating tourniquet to 300 mm Hg. Then made a standard anterolateral stab incision. knee was insufflated with water and 30 degree arthroscope was placed. There was grade 1 fibrillations of the patella but overall the suprapatellar pouch and the gutters were clean. I descended into the medial compartment where I made my medial portal under direct visualization. The meniscus was intact. The root was intact and there was grade 1 changes with some scattered grade 2 /3 changes over the far lateral aspect of the MFC ( non weight bearing portion). There were scattered loose bodies in the posterior recess ( 1-2 mm) The meniscus was stable upon probing. The ACL was examined and intact. There were fibrous tissue with adhesions in the anterior interval and an anterior plica. These were resected. I used a shaver to debride the loose chondral flaps in the MFC. I then examined the lateral compartment. The meniscus was normal and stable upon probing. There was fissuring and softening of the lateral plateau. The fibrillations were debrided with a shaver. I then removed all instrumentation and closed the portals with skin glue. 25 mL of 2% Marcaine with epinephrine was injected into the joint and the surrounding soft tissues. Patient was then placed in sterile dressing extubated brought recovery room stable condition. There were no known complications.
[2022-03-19 12:45] VITALS: BP 126/88; PULSE 69; RESP 16; O2SAT 95
[2022-03-19 12:50] VITALS: BP 122/82; PULSE 66; RESP 16; TEMP 36.8; O2SAT 95
[2022-03-19 13:05] VITALS: BP 121/75; PULSE 61; RESP 16; TEMP 36.6; O2SAT 97
== END 2022-03-19 13:50 | disposition home or self-care (01) ==
PROVIDERS: Visit Provider Orthopaedic Surgery
PROC: (CPT 29870; principal; 2022-03-19 10:20)
DX: S83.8X1A Sprain of other specified parts of right knee, initial encounter (principal); S89.81XA Other specified injuries of right lower leg, initial encounter; M23.41 Loose body in knee, right knee; M22.41 Chondromalacia patellae, right knee; M67.51 Plica syndrome, right knee; M17.11 Unilateral primary osteoarthritis, right knee; X58.XXXA Exposure to other specified factors, initial encounter; Y93.23 Activity, snow (alpine) (downhill) skiing, snowboarding, sledding, tobogganing and snow tubing; Y92.9 Unspecified place or not applicable; Y99.8 Other external cause status; I10 Essential (primary) hypertension; Z98.890 Other specified postprocedural states; Z79.899 Other long term (current) drug therapy; Z88.1 Allergy status to other antibiotic agents; Z88.2 Allergy status to sulfonamides; F17.210 Nicotine dependence, cigarettes, uncomplicated
CPT/HCPCS: 29876; J0171; J1100; J2250; J2405; J3010

== ENCOUNTER → 2022-03-24 10:40 | Outpatient (BNVA) | payer BC, SELFPAY | PROVIDERS: Visit Provider Physician Assistant | DX: Z13.89 Encounter for screening for other disorder (principal) ==

== ENCOUNTER 2022-04-22 09:46 | Outpatient (REF) | payer BC, SELFPAY ==
[2022-04-22 10:24] LABS: MANUAL DIFF FLAG NO
[2022-04-22 10:32] LABS: Basophils Percent Auto 0.5 % (0-2); Eosinophils Absolute Auto 0.2 X10*3/uL (0.0-0.4); Eosinophils Percent Auto 2.4 % (0-4); Hematocrit 42.2 % (42.0-52.0); Hemoglobin 14.5 g/dl (14.0-18.0); Imm Gran Abs Auto 0.04 X10*3/uL (0.00-0.03); Imm Gran Pct Auto 0.5 % (0.0-0.4); Lymphocytes Percent Auto 23.7 % (20-40); Mean Corpuscular HGB Conc 34.4 g/dl (31.0-36.0); Mean Corpuscular Hemoglobin 33.5 pg (27.0-33.0); Mean Corpuscular Volume 97.5 fL (80.0-98.0); Mean Platelet Volume 10.4 fL (9.4-12.4); Monocytes Absolute Auto 0.9 X10*3/uL (0.1-1.2); Monocytes Percent Auto 9.9 % (2-11); Neutrophils Absolute Auto 5.4 x10*3/uL (2.0-8.3); Platelet Count 139 X10*3/uL (160-400); Red Blood Count 4.33 X10*6/uL (4.60-5.80); Red Cell Distribution Width 11.6 % (11.0-16.0); White Blood Count 8.6 X10*3/uL (4.8-10.8)
[2022-04-22 10:43] LABS: Appearance Urine CLEAR; Color Urine YELLOW; Glucose Urine UA NEG (NEG); Leukocyte Esterase Urine NEG (NEG); Nitrite Urine NEG (NEG); Specific Gravity - Urine 1.015 (1.005-1.025); UACC Culture Trigger NO; Urine Blood TRACE (NEG); Urine Ketones NEG (NEG); Urine Protein NEG (NEG-TRACE)
[2022-04-22 10:50] LABS: Alanine Aminotransferase 69 U/L (0-40); Albumin Level 4.3 g/dL (3.5-5.0); Alkaline Phosphatase 61 U/L (39-117); Anion Gap 11 (12-20); Aspartate Amino Transferase 48 U/L (5-37); Bilirubin Total 0.7 mg/dL (0.0-1.0); Blood Urea Nitrogen 13 mg/dL (9-16); Calcium 8.7 mg/dL (8.4-10.2); Carbon Dioxide 25 mmol/L (22-29); Chloride 106 mmol/L (96-108); Cholesterol 159 mg/dL; Estimated Glomerular Filt Rate > 60; Glucose Fasting 113 mg/dL (60-99); HDL Cholesterol 28 mg/dL; Potassium 3.9 mmol/L (3.3-5.1); Sodium 138 mmol/L (135-145); Triglycerides 468 mg/dL
[2022-04-22 10:56] LABS: RBC Urine 0-2 /HPF (0); WBC Urine 0 /HPF (0-4)
[2022-04-22 11:08] LABS: Free T4 (Free Thyroxine) 1.13 ng/dL (0.71-1.85); Vitamin D 25-OH Total 28.3 ng/mL (>30)
[2022-04-22 11:13] LABS: Prostate Specific Antigen 13.06 ng/mL (<0.05-4.0)
== END 2022-04-22 09:47 | disposition home or self-care (01) ==
LOC: HO.10HDL 09:46
PROVIDERS: Absent Provider Urology; Visit Provider Internal Medicine
DX: Z12.5 Encounter for screening for malignant neoplasm of prostate (principal); R97.20 Elevated prostate specific antigen [PSA]; E78.00 Pure hypercholesterolemia, unspecified; E03.9 Hypothyroidism, unspecified; E55.9 Vitamin D deficiency, unspecified; I10 Essential (primary) hypertension
CPT/HCPCS: 36415; 80053; 80061; 81001; 82306; 84153; 84439; 84443; 85025

== ENCOUNTER → 2022-05-14 10:41 | Outpatient (BNVA) | payer BC, SELFPAY | PROVIDERS: PCP Internal Medicine; Visit Provider Urology | DX: R97.20 Elevated prostate specific antigen [PSA] (principal) | CPT/HCPCS: 51798 ==

== ENCOUNTER 2022-05-27 11:00 | Outpatient (RCR) | payer BC, SELFPAY ==
--- NOTE | 2022-03-24 11:44 | MHC.PT.EP ---
[facility] [place] Office [place] Office [place] [facility] [address] Briana Kat [address] [phone] F: [phone] F: [phone] F: [phone] F: [phone] Physical Therapy Plan of Care Date of Evaluation: Date of Surgery: 03/19/22 Diagnosis: Chondroplasty, removal of loose bodies and plica resection (KP) Assessment: CAROLINA IS A PLEASANT 51 YO MALE WHO PRESENTS POD #5 FOR ORTHOPEDIC FOLLOW UP AND PT EVALUATION. UPON EXAM HE DEMONSTRATES THE EXPECTED IMPAIRMENTS OF DECREASED ROM, DECREASED STRENGTH, ALTERED POSTURE AND POSITIONING,ALTERED GAIT AND BALANCE, AND INCREASED PAIN AND EDEMA. FUNCTIONAL LIMITATIONS INCLUDE DECREASED ABILITY TO PERFORM HOMEMAKING AND SELF-CARE TASKS, DECREASED ABILITY TO PERFORM WALKING, RUNNING, JUMPING AND SQUATTING, INABILITY TO DRIVE AND PERFORM WORK TASKS, DECREASED PARTICIPATION IN COMMUNITY AND RECREATIONAL ACTIVITIES AND DISRUPTED SLEEP. THE Pt IS A GOOD CANDIDATE FOR SKILLED PT DUE TO AGE, POTENTIAL REMEDIATION OF IMPAIRMENTS, TYPICAL DISEASE/CONDITION PROGRESSION AND PROGNOSIS, COMORBIDITIES, AND MOTIVATION. PT WOULD BENEFIT FROM TAILORED PROGRAM OF THERAPEUTIC ACTIVITIES, FUNCTIONAL TRAINING, GAIT TRAINING, POSTURAL EDUCATION, NEUROMUSCULAR RE-EDUCATION, AND MODALITIES NEEDED Frequency and Duration: The patient will be seen 2 X WEEK FOR 4 WEEKS Short Term Goals: INITIATE HEP AND PROMOTE SELF MANAGEMENT OF SYMPTOMS Crib Tender Goals: TO DEMONSTRATE FULL KNEE ROM, EQUAL JAMIN TO DEMONSTRATE FULL LE STRENGTH, EQUAL JAMIN TO ASCEND AND DESCEND STAIRS WITH RECIPROCAL GAIT WITHOUT PAIN GREATER THAN 2/10 TO AMBULATE AD JAMES ON LEVEL AND UNEVEN SURFACES FOR FITNESS WITHOUT PAIN GREATER THAN 2/10 Treatment Plan: Modalities to reduce pain, spasms and effusion. Manual therapy to restore motion and function. Therapeutic exercise to improve strength and flexibility. Neuromuscular re-education for posture and balance. Therapeutic activities to return to functional activities of daily living. Electronically signed by: DIANE PETTIT PT, DPT Please sign and return to therapist. Thank you for your referral.
--- NOTE | 2022-05-27 11:45 | MHC.PT.DC ---
[facility] [place] Office [place] [facility] [place] Office [address] Briana Kat [address] [phone] F: [phone] F: [phone] F: [phone] F: [phone] Physical Therapy Discharge Report Diagnosis: Chondroplasty, removal of loose bodies and plica resection (KP) Date of Surgery: 03/19/22 Date of Evaluation: 03/24/22 Date of Discharge: 05/27/22 Treatments to Date: 18 Cancellations to Date: 0 No Shows to Date: 0 Discharge Status: Achieved Goals Improved Function Independent with HEP Discharge Summary: Lorenzo has completed 18 PT visits and has made significant improvements. He has achieved all goals set for him and is independent with HEP. He is therefore being d/c from PT today. Lorenzo is in agreement with the plan. Electronically signed by: Maisha Ervin, PT DPT Please sign and return to therapist. Thank you for your referral.
== END 2022-05-27 11:45 | disposition home or self-care (01) ==
LOC: HO.PT 11:00
PROVIDERS: PCP Internal Medicine; Visit Provider Physician Assistant
DX: S83.8X1A Sprain of other specified parts of right knee, initial encounter (principal)
CPT/HCPCS: 97110; 97112; 97161; 97530

== ENCOUNTER 2022-08-28 08:43 | Outpatient (REF) | payer BC, SELFPAY ==
[2022-08-28 10:33] LABS: MANUAL DIFF FLAG NO
[2022-08-28 10:44] LABS: Basophils Absolute Auto 0.1 X10*3/uL (0.0-0.2); Eosinophils Absolute Auto 0.5 X10*3/uL (0.0-0.4); Eosinophils Percent Auto 3.9 % (0-4); Hematocrit 41.5 % (42.0-52.0); Hemoglobin 14.3 g/dl (14.0-18.0); Imm Gran Abs Auto 0.07 X10*3/uL (0.00-0.03); Imm Gran Pct Auto 0.6 % (0.0-0.4); Lymphocytes Absolute Auto 2.7 X10*3/uL (1.2-4.9); Lymphocytes Percent Auto 23.5 % (20-40); Mean Corpuscular HGB Conc 34.5 g/dl (31.0-36.0); Mean Corpuscular Hemoglobin 33.6 pg (27.0-33.0); Mean Corpuscular Volume 97.4 fL (80.0-98.0); Mean Platelet Volume 10.5 fL (9.4-12.4); Monocytes Absolute Auto 1.2 X10*3/uL (0.1-1.2); Monocytes Percent Auto 10.1 % (2-11); Neutrophils Percent Auto 60.9 % (45-73); Platelet Count 239 X10*3/uL (160-400); Red Blood Count 4.26 X10*6/uL (4.60-5.80); Red Cell Distribution Width 12.2 % (11.0-16.0); White Blood Count 11.5 X10*3/uL (4.8-10.8)
[2022-08-28 10:55] LABS: Appearance Urine Clear; Color Urine Yellow; Glucose Urine UA Negative (Negative); Leukocyte Esterase Urine Negative (Negative); Nitrite Urine Negative (Negative); PH 6.5 (5.0-9.0); Specific Gravity - Urine 1.015 (1.005-1.025); Urine Blood Negative (Negative); Urine Ketones Negative (Negative); Urine Protein Negative (Neg-Trace)
[2022-08-28 11:07] LABS: Estimated Average Glucose 100 mg/dL; Hemoglobin A1c % 5.1 %
[2022-08-28 11:24] LABS: Alanine Aminotransferase 46 U/L (0-40); Albumin Level 4.1 g/dL (3.5-5.0); Alkaline Phosphatase 77 U/L (39-117); Anion Gap 17 (12-20); Aspartate Amino Transferase 32 U/L (5-37); Bilirubin Total 0.6 mg/dL (0.0-1.0); Blood Urea Nitrogen 11 mg/dL (9-16); Calcium 8.8 mg/dL (8.4-10.2); Carbon Dioxide 23 mmol/L (22-29); Chloride 101 mmol/L (96-108); Cholesterol 154 mg/dL; Estimated Glomerular Filt Rate > 60; Glucose Fasting 102 mg/dL (60-99); HDL Cholesterol 28 mg/dL; LDL Cholesterol Calculated 87 mg/dl; Potassium 4.5 mmol/L (3.3-5.1); Sodium 136 mmol/L (135-145); Total Protein 7.1 g/dL (6.5-8.0); Triglycerides 195 mg/dL
[2022-08-28 11:35] LABS: Free T4 (Free Thyroxine) 1.08 ng/dL (0.71-1.85); Thyroid Stimulating Hormone 1.75 uIU/mL (0.32-4.0)
[2022-08-28 13:27] LABS: Vitamin D 25-OH Total 39.6 ng/mL (>30)
== END 2022-08-28 08:44 | disposition home or self-care (01) ==
LOC: HO.10HDL 08:43
PROVIDERS: Visit Provider Internal Medicine
DX: I10 Essential (primary) hypertension (principal); E03.9 Hypothyroidism, unspecified; R73.01 Impaired fasting glucose; E78.00 Pure hypercholesterolemia, unspecified; E55.9 Vitamin D deficiency, unspecified
CPT/HCPCS: 36415; 80053; 80061; 81003; 82306; 83036; 84439; 84443; 85025

== ENCOUNTER 2022-11-11 08:37 | Outpatient (REF) | payer BC, SELFPAY ==
[2022-11-11 12:01] LABS: PSA,Total (Free>4and<10) 18.51 ng/mL (0.00-4.00)
== END 2022-11-11 08:38 | disposition home or self-care (01) ==
LOC: HO.10HDL 08:37
PROVIDERS: Visit Provider Urology
DX: Z12.5 Encounter for screening for malignant neoplasm of prostate (principal); R97.20 Elevated prostate specific antigen [PSA]
CPT/HCPCS: 36415; 84153

== ENCOUNTER → 2022-11-13 09:00 | Outpatient (BNVA) | payer BC, SELFPAY | PROVIDERS: PCP Internal Medicine; Visit Provider Urology | DX: Z13.89 Encounter for screening for other disorder (principal) ==

== ENCOUNTER 2023-01-29 08:27 | Outpatient (REF) | payer BC, SELFPAY ==
[2023-01-29 10:43] LABS: MANUAL DIFF FLAG NO
[2023-01-29 10:52] LABS: Basophils Absolute Auto 0.1 X10*3/uL (0.0-0.2); Basophils Percent Auto 0.8 % (0-2); Eosinophils Absolute Auto 0.3 X10*3/uL (0.0-0.4); Eosinophils Percent Auto 3.1 % (0-4); Hematocrit 43.5 % (42.0-52.0); Hemoglobin 15.1 g/dl (14.0-18.0); Imm Gran Abs Auto 0.04 X10*3/uL (0.00-0.03); Imm Gran Pct Auto 0.5 % (0.0-0.4); Lymphocytes Absolute Auto 2.3 X10*3/uL (1.2-4.9); Lymphocytes Percent Auto 27.6 % (20-40); Mean Corpuscular HGB Conc 34.7 g/dl (31.0-36.0); Mean Corpuscular Hemoglobin 33.5 pg (27.0-33.0); Mean Corpuscular Volume 96.5 fL (80.0-98.0); Mean Platelet Volume 10.3 fL (9.4-12.4); Monocytes Absolute Auto 0.9 X10*3/uL (0.1-1.2); Monocytes Percent Auto 10.8 % (2-11); Neutrophils Absolute Auto 4.8 x10*3/uL (2.0-8.3); Neutrophils Percent Auto 57.2 % (45-73); Platelet Count 189 X10*3/uL (160-400); Red Blood Count 4.51 X10*6/uL (4.60-5.80); Red Cell Distribution Width 12.2 % (11.0-16.0); White Blood Count 8.4 X10*3/uL (4.8-10.8)
[2023-01-29 10:53] LABS: Appearance Urine Clear; Color Urine Yellow; Glucose Urine UA Negative (Negative); Leukocyte Esterase Urine Negative (Negative); Nitrite Urine Negative (Negative); PH 6.5 (5.0-9.0); Specific Gravity - Urine 1.015 (1.005-1.025); Urine Blood Negative (Negative); Urine Ketones Negative (Negative); Urine Protein Negative (Neg-Trace)
[2023-01-29 11:31] LABS: Alanine Aminotransferase 85 U/L (0-40); Albumin Level 4.4 g/dL (3.5-5.0); Alkaline Phosphatase 65 U/L (39-117); Anion Gap 14 (12-20); Aspartate Amino Transferase 56 U/L (5-37); Bilirubin Total 1.2 mg/dL (0.0-1.0); Blood Urea Nitrogen 13 mg/dL (9-16); Calcium 9.1 mg/dL (8.4-10.2); Carbon Dioxide 23 mmol/L (22-29); Chloride 104 mmol/L (96-108); Cholesterol 169 mg/dL; Estimated Glomerular Filt Rate > 60; Glucose Fasting 107 mg/dL (60-99); HDL Cholesterol 32 mg/dL; LDL Cholesterol Calculated 104 mg/dl; Potassium 4.3 mmol/L (3.3-5.1); Sodium 137 mmol/L (135-145); Total Protein 6.9 g/dL (6.5-8.0); Triglycerides 165 mg/dL
[2023-01-29 11:48] LABS: Thyroid Stimulating Hormone 1.26 uIU/mL (0.32-4.0); Vitamin D 25-OH Total 44.8 ng/mL (>30)
== END 2023-01-29 08:28 | disposition home or self-care (01) ==
LOC: HO.10HDL 08:27
PROVIDERS: Visit Provider Internal Medicine
DX: I10 Essential (primary) hypertension (principal); E78.00 Pure hypercholesterolemia, unspecified; E03.9 Hypothyroidism, unspecified; R30.0 Dysuria; E55.9 Vitamin D deficiency, unspecified
CPT/HCPCS: 36415; 80053; 80061; 81003; 82306; 84439; 84443; 85025

== ENCOUNTER → 2023-02-20 13:22 | Outpatient (BNVA) | payer BC, SELFPAY | PROVIDERS: PCP Internal Medicine; Visit Provider Orthopaedic Surgery ==

== ENCOUNTER → 2023-03-09 11:41 | Day surgery (SDC) | payer BC, SELFPAY ==
[2023-03-05 11:32] VITALS: BMI 33.2
[2023-03-05 11:33] VITALS: BMI 33.2
--- NOTE | 2023-03-06 12:31 | HO.ANESPROP2 ---
Documented by User: Tamara Silva NP 03/06/23 12:32 HPI - Anesthesia Eval Consult details Narrative: 52yo M for Targeted Prostate Needle Biopsy PMFSH Active Problems Active Problems: All Active Problems (Updated 02/20/23 @ 14:06 by Estrella Nguyen MD) Dysuria (Acute) Acute diarrhea (Acute) Elevated PSA (Acute) Anxiety and depression (Acute) Alcohol withdrawal (Acute) Dyspnea (Acute) BPH w urinary obs/LUTS (Acute) Annual physical exam (Acute) Rectal bleeding (Acute) Staph infection (Acute) Acute meniscal injury of right knee (Acute) Osteoarthritis of right knee (Acute) Patellofemoral arthritis of right knee (Acute) Elevated LFTs (Acute) Peyronie's disease (Acute) Upper respiratory tract infection (Acute) Ganglion cyst of volar aspect of right wrist (Acute) Numbness of right hand (Acute) Trigger finger, right middle finger (Acute) Mixed hyperlipidemia (Acute) Impaired fasting glucose (Acute) Depression (Acute) Obesity (BMI 30-39.9) (Acute) Anxiety (Acute) Hypertriglyceridemia (Acute) Supraventricular tachycardia (Acute) Acquired hypothyroidism (Acute) Benign essential hypertension (Acute) Pleuritic chest pain (Acute) Pneumonia (Acute) Sepsis (Acute) Past Medical History Medical History Acquired hypothyroidism Anxiety Benign essential hypertension BPH w urinary obs/LUTS Depression Hepatic steatosis HTN (hypertension) Hypertriglyceridemia Impaired fasting glucose Mixed hyperlipidemia Obesity (BMI 30-39.9) Pleuritic chest pain Pneumonia Sepsis Supraventricular tachycardia Family History Family History Father CVD (cardiovascular disease) Heart attack Rheumatoid arthritis Mother Dementia Family history of problems with anesthesia: No Surgical History Surgical History H/O right knee surgery History of back surgery History of colonoscopy History of cystoscopy Hx of meniscectomy of right knee History of Problems with Anesthesia: No Social History Social History (Updated 02/20/23 @ 13:35 by WILFRIDO Burns) Household Members: Significant Other Housing: House Do you presently have visiting nurse or other home services: No Alcohol intake: current Alcohol intake frequency: a few times a week Alcohol type: wine Patient Tobacco Use Status: Current everyday Tobacco user Tobacco use type: Cigarette Cigarettes Per Day: 3 Years Smoked: when I drink e-Cigarette/Vaping Use: Never Used Second Hand Smoke Exposure: No Advance Directives: Yes Advance Directives Information Provided: Yes Advance Directives on File: Yes Advance Directives Date on File: 02/23/19 service: No Current occupational status: employed 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 Cognitive needs: No Hearing needs: No Vision needs: No Meds Allergies Allergy/AdvReac Type Severity Reaction Status Date / Time sulfamethoxazole Allergy Intermediate mucosal Verified 03/09/23 12:11 [From Bactrim] and hand rash/scaling trimethoprim [From Bactrim] Allergy Intermediate mucosal Verified 03/09/23 12:11 and hand rash/scaling amoxicillin Allergy Unknown Unknown Verified 03/09/23 12:11 fenofibrate [From TRICOR] Allergy Unknown UNKNOWN Verified 03/09/23 12:11 Home Medications Medication Instructions Recorded Confirmed Last Taken Type ascorbic acid (vitamin C) 500 mg 500 mg PO DAILY 07/19/20 03/05/23 Unknown History tablet multivitamin with minerals (Men's 1 tab PO DAILY 07/19/20 03/05/23 Unknown History One Daily tablet) omega-3 fatty acids 1,000 mg 1,000 mg PO DAILY 07/19/20 03/05/23 Unknown History capsule (Fish Oil Concentrate) diclofenac sodium 1 % topical gel 1 ea topical DAILY 01/18/21 03/05/23 Unknown History mupirocin 2 % topical ointment 1 appl topical TID 03/13/22 03/05/23 Unknown History Exam Exam Date and Time: March 06, 2023 1231 Height,Weight and Vital Signs: Height 5 ft 9 in Weight 102.058 kg Pertinent Lab Results Pertinent Lab Results: Laboratory Tests 01/29/23 01/29/23 08:31 08:37 WBC 8.4 Hgb 15.1 Hct 43.5 Plt Count 189 Sodium 137 Potassium 4.3 Chloride 104 Carbon Dioxide 23 BUN 13 Creatinine 0.77 Assessment and Plan Assessment Anesthesia Assessment: Chart Reviewed Final Anesthetic Review Family History of Problems with Anesthesia: No History of Problems with Anesthesia: No Documented by User: Lizbeth Alvarado MD 03/09/23 14:06 [facility] Past Medical History Medical History Acquired hypothyroidism Anxiety Benign essential hypertension BPH w urinary obs/LUTS Depression Hepatic steatosis HTN (hypertension) Hypertriglyceridemia Impaired fasting glucose Mixed hyperlipidemia Obesity (BMI 30-39.9) Pleuritic chest pain Pneumonia Sepsis Supraventricular tachycardia Family History Family History Father CVD (cardiovascular disease) Heart attack Rheumatoid arthritis Mother Dementia Surgical History Surgical History H/O right knee surgery History of back surgery History of colonoscopy History of cystoscopy Hx of meniscectomy of right knee Social History Social History (Updated 02/20/23 @ 13:35 by WILFRIDO Burns) Household Members: Significant Other Housing: House Do you presently have visiting nurse or other home services: No Alcohol intake: current Alcohol intake frequency: a few times a week Alcohol type: wine Patient Tobacco Use Status: Current everyday Tobacco user Tobacco use type: Cigarette Cigarettes Per Day: 3 Years Smoked: when I drink e-Cigarette/Vaping Use: Never Used Second Hand Smoke Exposure: No Advance Directives: Yes Advance Directives Information Provided: Yes Advance Directives on File: Yes Advance Directives Date on File: 02/23/19 service: No Current occupational status: employed 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 Cognitive needs: No Hearing needs: No Vision needs: No Meds Allergies Allergy/AdvReac Type Severity Reaction Status Date / Time sulfamethoxazole Allergy Intermediate mucosal Verified 03/09/23 12:11 [From Bactrim] and hand rash/scaling trimethoprim [From Bactrim] Allergy Intermediate mucosal Verified 03/09/23 12:11 and hand rash/scaling amoxicillin Allergy Unknown Unknown Verified 03/09/23 12:11 fenofibrate [From TRICOR] Allergy Unknown UNKNOWN Verified 03/09/23 12:11 Home Medications Medication Instructions Recorded Confirmed Last Taken Type ascorbic acid (vitamin C) 500 mg 500 mg PO DAILY 07/19/20 03/05/23 Unknown History tablet multivitamin with minerals (Men's 1 tab PO DAILY 07/19/20 03/05/23 Unknown History One Daily tablet) omega-3 fatty acids 1,000 mg 1,000 mg PO DAILY 07/19/20 03/05/23 Unknown History capsule (Fish Oil Concentrate) diclofenac sodium 1 % topical gel 1 ea topical DAILY 01/18/21 03/05/23 Unknown History mupirocin 2 % topical ointment 1 appl topical TID 03/13/22 03/05/23 Unknown History Exam Airway Mallampati Class: II (cap rop left right) TM Dist: >3cm Neck ROM: Full Heart: rrr Lungs: cta Assessment and Plan Assessment Anesthesia Assessment: Anesthesia Plan Discussed Final Anesthetic Review NPO: Yes ASA Class: II Final Preanesthetic Review: No Changes in Pt Med Stat, Meds/Allgs Chart Reviewed and Consent Obtained/Reviewed Patient Risk: Intermediate Procedure Risk: Intermediate Anesthetic Plan Anesthetic Plan: GA Disposition: Standard PACU
[2023-03-09 11:53] VITALS: BP 137/87; PULSE 56; RESP 15; TEMP 36.8; O2SAT 96
[2023-03-09] MEDS: Lactated Ringers 1,000 ML 100 ML IVCONT (12:09)
--- NOTE | 2023-03-09 13:55 | MHC.SHP ---
Pre-Procedural Eval Section A Date of Service: 03/09/23 The patient is an INPATIENT: No Changes since office visit: No Cold of Flu in the past 2 weeks, No New Medical Problems, No Changes in Medication and No Patient answered all questions The History & Physical has been completed within 30 days and I have reviewed it.: Yes Section B Chief Complaint: Elevated PSA Relevant Social History: None Present Medications: see Short Stay Collaborative assessment Medical History: No relevant PMH History of Previous Operations: No relevant previous surgery Allergies: Allergies Allergy/AdvReac Type Severity Reaction Status Date / Time sulfamethoxazole Allergy Intermediate mucosal Verified 03/09/23 12:11 [From Bactrim] and hand rash/scaling trimethoprim [From Bactrim] Allergy Intermediate mucosal Verified 03/09/23 12:11 and hand rash/scaling amoxicillin Allergy Unknown Unknown Verified 03/09/23 12:11 fenofibrate [From TRICOR] Allergy Unknown UNKNOWN Verified 03/09/23 12:11 Review of Systems Sugical H&P ROS: Negative: Constitution, Cardiovascular, Respiratory, Neurological, Psychiatric, Hem-Onc, Allergic/Immunologic, Gastrointestinal, Genitourinary, Musculoskeletal, Integumentary, Endocrine and Eyes/Ears/Nose/Throat Plan Diagnosis/Plan: Unchanged (guided biopsy) I have reviewed the history and physical and performed a pertinent physical examination on my patient. No changes have occurred unless specified. Time Spent With Patient Time: Total time managing care of this patient today ____ minutes.
--- NOTE | 2023-03-09 14:59 | W.PM.OPN ---
Operative Note Operative Note Date of Service: 03/09/23 Narrative: Preoperative diagnosis: Elevated PSA Postoperative diagnosis: Elevated PSA Procedure: 1. transrectal ultrasound measurement of prostate 2. transrectal ultrasound-guided pudendal nerve block 3. MRI-US fusion image registration performed 3. transperineal ultrasound-guided prostate biopsy 17 core including targets Surgeon: Dr. Tae Estes Anesthetic: Sedation plus local Indications for procedure: Elevated PSA Procedure: After informed consent was verified, the patient was brought into the procedure area. Patient identity confirmed. Perioperative antibiotics confirmed. Safety pause time out performed. Anesthesia performed per protocol Ultrasound probe was placed per rectum Focalis software and hardware platform used An ultrasound-guided pudendal nerve block was performed using 10 cc of 1% lidocaine. 8 cc was placed at the base and 2 cc of the apex. Perineal injection of local. Ultrasound placement was made with grid calibration for height and prostate diameter in both the transverse and longitudinal planes. Once grid calibration was confirmed ultrasound acquisition was performed in the transverse fashion. Three dimensional ultrasound model was created. The planned needle targeting based on prior acquisition of MRI imaging was overlaid on the ultrasound images and targets confirmed through ultrasound review. Based on pre -planning evaluation 17 targets had been identified. These included 2 targets pirads 3 identified lesion/s.. He tolerated the procedure well. Was transferred to stable condition in the PACU. Printed instructions regarding antibiotic use and common side effects such as low-grade temperature, potential infection and bleeding were given Pathology: 17 core prostate biopsy CPT 39946 Modifier 22 for complexity of planning and procedure execution
[2023-03-09 15:05] VITALS: BP 133/87; PULSE 65; RESP 16; TEMP 36.4; O2SAT 96
[2023-03-09 15:10] VITALS: BP 139/84; PULSE 61; RESP 16; O2SAT 96
[2023-03-09 15:20] VITALS: BP 122/74; PULSE 58; RESP 16; TEMP 36.4; O2SAT 95
== END | disposition home or self-care (01) ==
PROVIDERS: PCP Internal Medicine; Visit Provider Urology
PROC: (CPT 55700; principal; 2023-03-09 13:20)
DX: R97.20 Elevated prostate specific antigen [PSA] (principal); N40.1 Benign prostatic hyperplasia with lower urinary tract symptoms; N13.8 Other obstructive and reflux uropathy; N48.6 Induration penis plastica; I10 Essential (primary) hypertension; K76.0 Fatty (change of) liver, not elsewhere classified; E78.1 Pure hyperglyceridemia; R73.01 Impaired fasting glucose; E03.9 Hypothyroidism, unspecified; F41.1 Generalized anxiety disorder; Z79.899 Other long term (current) drug therapy; Z88.1 Allergy status to other antibiotic agents; Z88.2 Allergy status to sulfonamides; F17.210 Nicotine dependence, cigarettes, uncomplicated
CPT/HCPCS: 55700; 88305; J1956; J3010

== ENCOUNTER → 2023-03-18 11:33 | Outpatient (BNVA) | payer BC, SELFPAY | PROVIDERS: PCP Internal Medicine; Visit Provider Urology ==

== ENCOUNTER 2023-06-10 08:32 | Outpatient (REF) | payer BC, SELFPAY ==
--- NOTE | 2023-06-10 08:35 | EMG_ITS ---
Please see scanned EMG / Nerve Conduction Report. MTDD
== END 2023-06-10 08:33 | disposition home or self-care (01) ==
LOC: HO.NEURO 08:32
PROVIDERS: PCP Internal Medicine; Visit Provider Orthopaedic Surgery
DX: R20.0 Anesthesia of skin (principal); R20.2 Paresthesia of skin
CPT/HCPCS: 95885; 95913

== ENCOUNTER 2023-06-15 09:24 | Outpatient (REF) | payer BC, SELFPAY ==
[2023-06-15 11:30] LABS: Prostate Specific Antigen 15.19 ng/mL (<0.05-4.0)
[2023-06-17 15:38] LABS: CRP High Sensitivity 7.5 mg/L
== END 2023-06-15 09:25 | disposition home or self-care (01) ==
LOC: HO.10HDL 09:24
PROVIDERS: Visit Provider Urology
DX: Z12.5 Encounter for screening for malignant neoplasm of prostate (principal); R97.20 Elevated prostate specific antigen [PSA]
CPT/HCPCS: 36415; 84153; 86141

== ENCOUNTER 2023-06-17 11:41 | Outpatient (AMB) | payer BC, SELFPAY ==
--- NOTE | 2023-06-17 12:00 | MHC.OFFVIS ---
Intake Intake Visit Reasons: 3m/PSA(set) Intake Note: Patient is present for Follow Up Urology Med: Tadalafil Antibiotic Allergy: Sulfa, Trimethroprim, Amoxicillin Blood Thinner: None Pharmacy: [facility] Allergies sulfamethoxazole [From Bactrim] Allergy (Intermediate, Verified 06/30/23 09:21) mucosal and hand rash/scaling trimethoprim [From Bactrim] Allergy (Intermediate, Verified 06/30/23 09:21) mucosal and hand rash/scaling amoxicillin Allergy (Unknown, Verified 06/30/23 09:21) Unknown fenofibrate [From TRICOR] Allergy (Unknown, Verified 06/30/23 09:21) UNKNOWN HPI HPI Comments History of Present Illness Details Lorenzo TAN is a very pleasant male. He is a patient of Dr. Stewart. He is seen for the following urologic conditions. - elevated PSA - Peyronie's with erectile dysfunction PSA stable at 15 03/10 MRI ultrasound fusion biopsy - chronic inflammation no evidence of prostate cancer PSA 11/10 18.5 Continue with PSA in 3 months - also high sensitivity CRP. Does have prior background of immune marker elevation. Other issue is erectile dysfunction. Would like to try daily Cialis. Prescription provided Elevated PSA/Abnormal OTIS: 08/06 MRI - left posteromedial mid gland 0.7cm lesion PiRADS 3 ExoDx - 08/08 Low Risk score 5 and 32 (variability) Prior biopsy complicated with post procedure prostatitis He presents for further evaluation of elevated PSA. 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 A TRUS biopsy has been performed and is negative January 2019 PSA at biopsy 15 Overall symptoms are mild. Peyronie's Reports penile curvature Does not interfere with intercourse Suggest 6 month therapy with high-dose PDE5 and antioxidants [facility] Medical History (Updated 06/30/23 @ 09:44 by Estrella Nguyen MD) Trigger finger, right middle finger Mixed hyperlipidemia Impaired fasting glucose Depression Obesity (BMI 30-39.9) Anxiety Hypertriglyceridemia Supraventricular tachycardia Acquired hypothyroidism Benign essential hypertension Pleuritic chest pain Pneumonia Sepsis HTN (hypertension) BPH w urinary obs/LUTS Hepatic steatosis Surgical History H/O right knee surgery Hx of meniscectomy of right knee History of cystoscopy History of colonoscopy History of back surgery Family History Father CVD (cardiovascular disease) Heart attack Rheumatoid arthritis Mother Dementia Social History Household Members: Significant Other Housing: House Do you presently have visiting nurse or other home services: No Alcohol intake: current Alcohol intake frequency: a few times a week Alcohol type: wine Patient Tobacco Use Status: Current everyday Tobacco user Tobacco use type: Cigarette Cigarettes Per Day: 3 Years Smoked: when I drink e-Cigarette/Vaping Use: Never Used Second Hand Smoke Exposure: No Advance Directives Date on File: 02/23/19 service: No Current occupational status: employed 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 Cognitive needs: No Hearing needs: No Vision needs: No Review of Systems Const Denies chills and Denies fever(s) Card Reports no additional complaints and Denies syncope Resp Denies cough GI Denies abdominal pain and Denies heartburn Reports as per HPI and Denies change in libido Neuro Denies syncope Psych Denies change in libido Endo Denies change in libido Physical Exam Const General: cooperative, healthy appearing, comfortable and no acute distress Orientation/consciousness: patient oriented x3 HEENT Face and sinus: Yes normal facial exam Mouth: moist mucous membranes Neck Neck: Yes normal visual inspection, Yes full ROM and Yes trachea midline Chest Chest palpation & inspection: normal inspection of the chest Resp Effort & Inspection: normal respiratory effort, able to speak in complete sentences and no respiratory distress GI Inspection: Yes normal to inspection Back/Spine/Pelvis Cervical Spine: normal cervical lordosis Thoracic/Lumbar Spine: thoracic and lumbar spine normal to inspection Skin General skin exam: no rashes or lesions noted Neuro General: patient oriented x3, gait normal, tone normal and moves all extremities Extrem General: Yes normal to inspection and Yes capillary refill normal Assessment & Plan Assessment & Plan (1) Elevated PSA: Comment: High PSA with prior negative biopsy Code(s): R97.20 - Elevated prostate specific antigen [PSA] (2) BPH w urinary obs/LUTS: Code(s): N40.1 - Benign prostatic hyperplasia with lower urinary tract symptoms; N13.8 - Other obstructive and reflux uropathy (3) Peyronie's disease: Code(s): N48.6 - Induration penis plastica Plan Six month follow-up Orders: Orders PSA,Total (Free>4and<10) 6 Months R97.20 - Elevated prostate specific antigen [PSA] Patient Instructions: Imaging studies, laboratory and physical exam results were discussed and reviewed in detail. No major barriers to patient understanding were identified. An opportunity to ask questions regarding the treatment plan was provided. All questions were answered. The patient expressed understanding and agreement with the above treatment plan. The patient is aware they should contact our office by phone for worsening of their current condition or the appearance of new urologic symptoms. Compliance is encouraged with any medications and followup testing that is ordered. It is a privilege to participate in the urologic care of your patient. If you have any questions or concerns regarding treatment for the above conditions, or other urologic issues, please do not hesitate to contact me. The office telephone contact is [phone]. This note is constructed using voice recognition software. While every effort has been made to ensure accuracy assistant media planner errors may have been included. Yours sincerely, Dr Tae Estes MD, [facility] - Urology Providers of Expert, Compassionate Care for the Genitourinary System Coding Level of Care Code Est Pt Level 3 (20881) Diagnoses Elevated PSA R97.20 BPH w urinary obs/LUTS N40.1; N13.8 Peyronie's disease N48.6
== END 2023-06-17 12:26 | disposition home or self-care (01) ==
PROVIDERS: PCP Internal Medicine; Visit Provider Urology
DX: R97.20 Elevated prostate specific antigen [PSA] (principal); N40.1 Benign prostatic hyperplasia with lower urinary tract symptoms; N13.8 Other obstructive and reflux uropathy; N48.6 Induration penis plastica
CPT/HCPCS: 99213

== ENCOUNTER → 2023-06-17 11:41 | Outpatient (BNVA) | payer BC, SELFPAY | PROVIDERS: Visit Provider Urology ==

== ENCOUNTER 2023-06-30 08:47 | Outpatient (AMB) | payer BC, SELFPAY ==
--- NOTE | 2023-06-30 09:10 | MHC.OFFVIS ---
Intake Vital Signs 06/30/23 09:10 Weight 217 lb Intake Visit Reasons: OV-CTS B/L EMG review Intake Note: Lorenzo 52 yr old male who is right hand dominant, presents today for his EMG review of right hand. States he would like to discuss carpal tunnel release as well as right ring and middle trigger finger release. Allergies sulfamethoxazole [From Bactrim] Allergy (Intermediate, Verified 06/30/23 09:21) mucosal and hand rash/scaling trimethoprim [From Bactrim] Allergy (Intermediate, Verified 06/30/23 09:21) mucosal and hand rash/scaling amoxicillin Allergy (Unknown, Verified 06/30/23 09:21) Unknown fenofibrate [From TRICOR] Allergy (Unknown, Verified 06/30/23 09:21) UNKNOWN HPI OV-CTS B/L EMG review HPI Details Lorenzo Quinonez is a 52-year-old male who presents today to the office for a review of CTS bilateral EMG. The patient underwent EMG on 06/10/23. The patient has middle and ring trigger fingers. He has intermittent pain and numbness in his thumb, index, middle, and half of the ring fingers. His numbness is worse while driving the car. He noticed locking of finger and has lump which is bothersome. He is right-handed dominant. 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 He is not diabetic and he is currently not taking any blood thinners. 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 [facility] Medical History (Updated 06/30/23 @ 09:44 by Estrella Nguyen MD) Trigger finger, right middle finger Mixed hyperlipidemia Impaired fasting glucose Depression Obesity (BMI 30-39.9) Anxiety Hypertriglyceridemia Supraventricular tachycardia Acquired hypothyroidism Benign essential hypertension Pleuritic chest pain Pneumonia Sepsis HTN (hypertension) BPH w urinary obs/LUTS Hepatic steatosis Surgical History H/O right knee surgery Hx of meniscectomy of right knee History of cystoscopy History of colonoscopy History of back surgery Family History Father CVD (cardiovascular disease) Heart attack Rheumatoid arthritis Mother Dementia Social History Household Members: Significant Other Housing: House Do you presently have visiting nurse or other home services: No Alcohol intake: current Alcohol intake frequency: a few times a week Alcohol type: wine Patient Tobacco Use Status: Current everyday Tobacco user Tobacco use type: Cigarette Cigarettes Per Day: 3 Years Smoked: when I drink e-Cigarette/Vaping Use: Never Used Second Hand Smoke Exposure: No Advance Directives Date on File: 02/23/19 service: No Current occupational status: employed 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 Cognitive needs: No Hearing needs: No Vision needs: No Review of Systems Const All systems reviewed & are unremarkable except as noted in HPI and below Physical Exam Const General: cooperative, healthy appearing and no acute distress Orientation/consciousness: patient oriented x3 HEENT Head: Yes normocephalic and Yes atraumatic Eyes EOM: EOMs intact bilaterally Resp Effort & Inspection: normal respiratory effort and able to speak in complete sentences Cardio Jugular venous distension: no JVD Skin General skin exam: turgor normal, ecchymosis (No) and erythema (No) Rashes: no rashes Trauma: no lacerations or abrasions Neuro Other: Vascular: Cap refill brisk General: patient oriented x3 Extrem Other: The patient was alert oriented and in no acute distress. Right upper extremities. The sensation was intact to all digits. he had no thenar or intrinsic atrophy. Able to make the fist and extend all his digits. There is visible and palpable locking and catching of the right middle finger and of the right ring finger. Good cap refill to all digits 06/10/23: EMG & NCV finding. Performed by Dr. Mathews 06/10/2023 General: Yes normal to inspection and Yes capillary refill normal Psych Appearance: grossly normal Affect: normal affect Attitude: cooperative Assessment & Plan Assessment & Plan (1) Carpal tunnel syndrome of right wrist: Code(s): G56.01 - Carpal tunnel syndrome, right upper limb (2) Trigger finger, right ring finger: Code(s): M65.341 - Trigger finger, right ring finger (3) Trigger finger, right middle finger: Code(s): M65.331 - Trigger finger, right middle finger Plan Assessment and plan: 1. Right carpal tunnel syndrome, moderate Symptoms intermittent but daily 2. Right middle finger trigger finger 3. Right ring finger trigger finger I educated the patient about these conditions We discussed operative and non operative treatment options and the patient wishes to proceed with surgery The risks and benefits of operative treatment were discussed with the patient and the patient wishes to proceed with surgery. These risks include, but are not limited to risk of damage to blood vessels, nerves, tendons, infection, recurrence, incomplete relief of preoperative symptoms, persistent pain, possible need for further surgery and the risks associated with regional blocks and anesthesia. The plan is to take the patient to the operating room sometime in the next few weeks for the following procedures: 1. Right carpal tunnel release 2. Right middle finger trigger release 3. Right ring finger trigger release All of the preoperative paperwork including the consent was filled out today. All the patient's questions were answered. The patient understands that they will be contacted by our mail courier soon to schedule this procedure 4. Right volar ulnar wrist mass Typically located where the FCU tendon comes to the pisiform. This appears to have resolved. If this recurs, he knows to contact us to be seen again. We can possibly treat this with an aspiration verses a steroid injection. It may be small cyst associated with the FCU tendon sheath. If I more concerned about a deeper cyst coming from the wrist joint were something that may be near the ulnar nerve or artery I may order an MRI. Scribed for Dr. Estrella Nguyen by Messi Najera, medical superintendent, on 06/30/2023. I, Dr. Estrella Nguyen, have personally reviewed and agree with the information entered by the scribe. Coding Level of Care Code Est Pt Level 4 (83570) Diagnoses Carpal tunnel syndrome of right wrist G56.01 Trigger finger, right ring finger M65.341 Trigger finger, right middle finger M65.331
== END 2023-06-30 09:47 | disposition home or self-care (01) ==
PROVIDERS: PCP Internal Medicine; Visit Provider Orthopaedic Surgery
DX: G56.01 Carpal tunnel syndrome, right upper limb (principal); M65.341 Trigger finger, right ring finger; M65.331 Trigger finger, right middle finger
CPT/HCPCS: 99214

== ENCOUNTER → 2023-06-30 08:47 | Outpatient (BNVA) | payer BC, SELFPAY | PROVIDERS: PCP Internal Medicine; Visit Provider Orthopaedic Surgery ==

== ENCOUNTER 2023-08-03 08:48 | Outpatient (REF) | payer BC, SELFPAY ==
[2023-08-03 10:35] LABS: MANUAL DIFF FLAG NO
[2023-08-03 10:43] LABS: Appearance Urine Clear; Basophils Absolute Auto 0.1 X10*3/uL (0.0-0.2); Basophils Percent Auto 0.7 % (0-2); Color Urine Yellow; Eosinophils Absolute Auto 0.3 X10*3/uL (0.0-0.4); Eosinophils Percent Auto 2.6 % (0-4); Glucose Urine UA Negative (Negative); Hematocrit 42.3 % (42.0-52.0); Hemoglobin 14.5 g/dl (14.0-18.0); Imm Gran Abs Auto 0.05 X10*3/uL (0.00-0.03); Imm Gran Pct Auto 0.5 % (0.0-0.4); Leukocyte Esterase Urine Negative (Negative); Lymphocytes Absolute Auto 2.1 X10*3/uL (1.2-4.9); Lymphocytes Percent Auto 21.4 % (20-40); Mean Corpuscular HGB Conc 34.3 g/dl (31.0-36.0); Mean Corpuscular Hemoglobin 33.6 pg (27.0-33.0); Mean Corpuscular Volume 98.1 fL (80.0-98.0); Mean Platelet Volume 10.8 fL (9.4-12.4); Monocytes Absolute Auto 0.9 X10*3/uL (0.1-1.2); Monocytes Percent Auto 9.3 % (2-11); Neutrophils Absolute Auto 6.3 x10*3/uL (2.0-8.3); Neutrophils Percent Auto 65.5 % (45-73); Nitrite Urine Negative (Negative); PH 5.5 (5.0-9.0); Platelet Count 175 X10*3/uL (160-400); Red Blood Count 4.31 X10*6/uL (4.60-5.80); Specific Gravity - Urine 1.015 (1.005-1.025); UMIC TRIGGER UACC YES; Urine Blood Trace (Negative); Urine Ketones Negative (Negative); Urine Protein Negative (Neg-Trace); White Blood Count 9.7 X10*3/uL (4.8-10.8)
[2023-08-03 10:49] LABS: Bacteria Urine None Seen (None Seen); Hyaline Casts Urine 0-2 /LPF (0-2); RBC Urine 0-2 /HPF (0-2); Squamous Epithelial Cell Urine 0-2 /HPF (0-2); WBC Urine 0-5 /HPF (0-5)
[2023-08-03 11:08] LABS: Estimated Average Glucose 97 mg/dL
[2023-08-03 13:04] LABS: Alanine Aminotransferase 51 U/L (0-40); Alkaline Phosphatase 65 U/L (39-117); Anion Gap 12 (12-20); Aspartate Amino Transferase 38 U/L (5-37); Bilirubin Total 0.4 mg/dL (0.0-1.0); Blood Urea Nitrogen 13 mg/dL (9-16); Calcium 8.8 mg/dL (8.4-10.2); Carbon Dioxide 21 mmol/L (22-29); Chloride 107 mmol/L (96-108); Cholesterol 148 mg/dL (<200); Estimated Glomerular Filt Rate > 60; Free T4 (Free Thyroxine) 1.08 ng/dL (0.71-1.85); Glucose Fasting 112 mg/dL (60-99); HDL Cholesterol 27 mg/dL (>40); LDL Cholesterol Calculated 74 mg/dL (<100); Potassium 4.2 mmol/L (3.3-5.1); Sodium 136 mmol/L (135-145); Thyroid Stimulating Hormone 1.83 uIU/mL (0.32-4.0); Triglycerides 236 mg/dL (<150); Vitamin D 25-OH Total 40.1 ng/mL (>30)
== END 2023-08-03 08:49 | disposition home or self-care (01) ==
LOC: HO.10HDL 08:48
PROVIDERS: Visit Provider Internal Medicine
DX: E11.9 Type 2 diabetes mellitus without complications (principal); E03.9 Hypothyroidism, unspecified; I10 Essential (primary) hypertension; E78.00 Pure hypercholesterolemia, unspecified; E55.9 Vitamin D deficiency, unspecified
CPT/HCPCS: 36415; 80053; 80061; 81001; 82306; 83036; 84439; 84443; 85025

== ENCOUNTER 2023-08-03 11:17 | Day surgery (SDC) | payer BC, SELFPAY ==
[2023-08-03 11:56] VITALS: BMI 31.1
[2023-08-03 14:25] VITALS: BP 152/83; PULSE 58; RESP 16; TEMP 36.6; O2SAT 97
--- NOTE | 2023-08-03 14:33 | P.OP_ITS ---
Operative Note Operative Note Date of Service: 08/03/23 Narrative: Preop diagnosis: 1. Right Carpal tunnel syndrome 2. Right middle finger trigger finger 3. Right ring finger trigger finger Postop diagnosis: same Procedure: 1. Right Carpal tunnel release 2. Right middle finger trigger release 3. Right ring finger trigger release Surgeon: Estrella Nguyen MD Anesthesia: local block using 1% lidocaine with epinephrine Findings: Thickened transverse carpal ligament. No locking or catching after A1 tad releases EBL: Less than 5 mL Specimens: None Complications: None Disposition: Brought to recovery room in stable condition Plan: Follow-up for 10-14 days for wound check and suture removal Indications: The patient is 52 years old, with right carpal tunnel syndrome and right middle finger and right ring finger trigger fingers that have been unr esponsive to nonoperative management. The risks and benefits of operative treatment including but not limited to risk of damage to blood vessels, nerves, tendons, infection, persistent pain, persistent symptoms, or possible need for additional surgery were discussed with the patient and the patient wishes to proceed with surgery. Procedure: Once consent was obtained a local block was performed using a combination of 1% lidocaine with epinephrine. The patient was then brought back to the operating suite and placed on the operative table in supine position. The right upper extremity was prepped and draped in a standard surgical fashion. Once assured that we had a good block, a 2.0 cm longitudinal incision was made centered over the right carpal tunnel. The incision was made through the skin to the subcutaneous tissues using a #15 blade. Dissection was made down to the level of the transverse carpal ligament with care being taken to protect the palmar cutaneous nerve. Once the transverse carpal ligament was clearly visualized, a longitudinal incision was made in the transverse carpal ligament 1st using a #15 blade, then using tenotomy scissors under direct visualization. Care was taken to look for and protect the motor branch of the median nerve when seen in this area. Once assured that we had a good block, a 1.5 cm oblique incision was made centered over the A1 tad of the right middle finger . The incision was made through the skin to the subcutaneous tissues using a #15 blade. Careful dissection was made down to the level of the A1 tad using tenotomy scissors, with care being taken to protect the nearby neurovascular structures. A longitudinal incision was made in the A1 tad 1st using a #15 blade, then using tenotomy scissors under direct visualization. The A1 tad was noted to be thickened. Following our A1 tad release, we no longer saw any locking or catching of the digit with flexion and extension. Once assured that we had a good block, a 1.5 cm oblique incision was made centered over the A1 tad of the right ring finger . The incision was made through the skin to the subcutaneous tissues using a #15 blade. Careful diss ection was made down to the level of the A1 tad using tenotomy scissors, with care being taken to protect the nearby neurovascular structures. A longitudinal incision was made in the A1 tad 1st using a #15 blade, then using tenotomy scissors under direct visualization. The A1 tad was noted to be thickened. Following our A1 tad release, we no longer saw any locking or catching of the digit with flexion and extension. Once satisfied with our procedures the wounds were copiously irrigated with normal saline and hemostasis was obtained with a brief period of local pressure. The skin edges were reapproximated with some 5.0 nylon suture material and a sterile dressing was applied. The patient appears to have tolerated the procedure well and with no complications. All digits were well vascularized at the conclusion of the case.
--- NOTE | 2023-08-03 14:33 | MHC.SHP ---
Pre-Procedural Eval Section A Date of Service: 08/03/23 The patient is an INPATIENT: No Changes since office visit: No Cold of Flu in the past 2 weeks, No New Medical Problems, No Changes in Medication and No Patient answered all questions The History & Physical has been completed within 30 days and I have reviewed it.: Yes Section B Chief Complaint: carpal tunnel release,Middle and Ring trigger Allergies: Allergies Allergy/AdvReac Type Severity Reaction Status Date / Time sulfamethoxazole Allergy Intermediate mucosal Verified 06/30/23 09:21 [From Bactrim] and hand rash/scaling trimethoprim [From Bactrim] Allergy Intermediate mucosal Verified 06/30/23 09:21 and hand rash/scaling amoxicillin Allergy Unknown Unknown Verified 06/30/23 09:21 fenofibrate [From TRICOR] Allergy Unknown UNKNOWN Verified 06/30/23 09:21 Plan I have reviewed the history and physical and performed a pertinent physical examination on my patient. No changes have occurred unless specified. Time Spent With Patient Time: Total time managing care of this patient today ____ minutes.
== END 2023-08-03 14:41 | disposition home or self-care (01) ==
PROVIDERS: PCP Internal Medicine; Visit Provider Orthopaedic Surgery
PROC: (CPT 64721; principal; 2023-08-03 12:30)
PROC: (CPT 26055; 2023-08-03 12:30)
DX: G56.01 Carpal tunnel syndrome, right upper limb (principal); M65.331 Trigger finger, right middle finger; M65.341 Trigger finger, right ring finger; I10 Essential (primary) hypertension; E78.2 Mixed hyperlipidemia; R73.01 Impaired fasting glucose; Z88.1 Allergy status to other antibiotic agents; Z88.2 Allergy status to sulfonamides; F17.210 Nicotine dependence, cigarettes, uncomplicated
CPT/HCPCS: 64721; 26055 ×2; J0171; J2795

== ENCOUNTER → 2023-08-03 11:17 | Outpatient (BNV) | payer BC, SELFPAY | PROVIDERS: PCP Internal Medicine; Visit Provider Orthopaedic Surgery | DX: G56.01 Carpal tunnel syndrome, right upper limb (principal); M65.341 Trigger finger, right ring finger; M65.331 Trigger finger, right middle finger | CPT/HCPCS: 26055; 64721 ==

== ENCOUNTER 2023-08-05 09:04 | Outpatient (AMB) | payer BC, SELFPAY ==
[2023-08-05 09:05] VITALS: BP 142/90; PULSE 69; O2SAT 95; BMI 31.2
--- NOTE | 2023-08-05 09:05 | MHC.PC.OV ---
Vital Signs 08/05/23 09:05 Height 5 ft 10 in Weight 217 lb 8 oz BMI 31.2 BP 142/90 H Blood Pressure Location Lt brachial Position Sitting Pulse 69 Pulse Source Pulse Oximeter Pulse Oximetry (%) 95 Oxygen Delivery Method Room Air Intake Visit Reasons: HTN, hyperlipidemia, hypothyroidism Security Team Lead Required: No Accompanied by: Self / Same As Patient Allergies sulfamethoxazole [From Bactrim] Allergy (Intermediate, Verified 08/05/23 09:40) mucosal and hand rash/scaling trimethoprim [From Bactrim] Allergy (Intermediate, Verified 08/05/23 09:40) mucosal and hand rash/scaling amoxicillin Allergy (Unknown, Verified 08/05/23 09:40) Unknown fenofibrate [From TRICOR] Allergy (Unknown, Verified 08/05/23 09:40) UNKNOWN Medication List - Last Reconciled 08/05/23 by Brent Stewart MD albuterol sulfate 90 mcg/actuation 2 puffs PO Q6H PRN ascorbic acid (vitamin C) 500 mg PO DAILY citalopram 20 mg PO DAILY 90 days diclofenac sodium 1% 1 ea topical DAILY finasteride 5 mg PO DAILY 90 days levothyroxine 175 mcg PO DAILY 60 days lisinopril 5 mg PO DAILY 90 days multivitamin with minerals (Men's One Daily tablet) 1 tab PO DAILY mupirocin 2% 1 appl topical TID mupirocin calcium 2% 1 appl topical TID 30 days omega-3 fatty acids (Fish Oil Concentrate) 1,000 mg PO DAILY oxycodone-acetaminophen 5-325 mg 1 tab PO Q6H PRN tadalafil 5 mg PO DAILY 90 days verapamil 80 mg PO TID 90 days Tobacco use date assessed: 08/05/23 Dental Screening Dental Screen Date: 08/05/23 Did you have a dental visit in the last 12 months?: Yes Did you have a dental problem in the last 6 months where you did not have access to dental care?: No Was dental information given to patient?: Patient has dentist HPI HTN, hyperlipidemia, hypothyroidism HPI Details Patient comes in today for his follow up visit He underwent carpal tunnel release and trigger finger release on his right hand a couple of days ago - states that his right hand is still sore from the surgery He feels well otherwise and denies any headaches or dizziness Denies any chest pains, no SOB No nausea/vomiting, no abdominal pain No change in bowel habits noted Needs his Albuterol inhaler Rx refilled Had his follow up labs done a couple of days ago - to discuss his results Adds that he has a family history of rheumatoid arthritis and it has been a few years now since he was tested - would like to get these tests done again to further evaluate his symptoms of arthralgia and some fatigue at times Would also like to get his flu shot today PFSH Medical History (Updated 08/05/23 @ 11:27 by Brent Stewart MD) Trigger finger, right middle finger Mixed hyperlipidemia Impaired fasting glucose Depression Obesity (BMI 30-39.9) Anxiety Hypertriglyceridemia Supraventricular tachycardia Acquired hypothyroidism Benign essential hypertension Pleuritic chest pain Pneumonia Sepsis HTN (hypertension) BPH w urinary obs/LUTS Hepatic steatosis Surgical History (Updated 08/05/23 @ 10:47 by Brent Setwart MD) S/P trigger finger release (~08/03/23) History of carpal tunnel release (~08/03/23) H/O right knee surgery Hx of meniscectomy of right knee History of cystoscopy History of colonoscopy History of back surgery Family History Father CVD (cardiovascular disease) Heart attack Rheumatoid arthritis Mother Dementia Social History Household Members: Significant Other Housing: House Do you presently have visiting nurse or other home services: No Alcohol intake: current Alcohol intake frequency: a few times a week Alcohol type: wine Patient Tobacco Use Status: Current everyday Tobacco user Tobacco use type: Cigarette Cigarettes Per Day: 3 Years Smoked: when I drink e-Cigarette/Vaping Use: Never Used Second Hand Smoke Exposure: No Advance Directives Date on File: 02/23/19 service: No Current occupational status: employed 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 1. Little interest or pleasure in doing things: not at all 2. Feeling down, depressed, or hopeless: not at all 3. Trouble falling or staying asleep, or sleeping too much: not at all 4. Feeling tired or having little energy: not at all 5. Poor appetite or overeating: not at all 6. Feeling bad about yourself - or that you are a failure or have let yourself or your family down: not at all 7. Trouble concentrating on things, such as reading the newspaper or watching television: not at all 8. Moving or speaking so slowly that other people could have noticed. Or the opposite - being so fidgety or restless that you have been moving around a lot more than usual: not at all 9. Thoughts that you would be better off or of hurting yourself in some way: not at all Total score: 0 Depression Screening Interpretation: Positive Depression Screening Follow-up: Existing condition and In treatment Depression Screening Done: Yes 00714 - PHQ-9 Billing: Yes Source: Developed by Drs. Fredi Garvin, Berenice Ortiz, Keaton Son and colleagues, with an educational eren from [employer]. Thrive Questionnaire Date Thrive assessed: 08/05/23 I am a: Patient What is your living situation today?: I have a steady place to live Within the past 12 months, did the food you bought not last and you didn't have the money to get more?: Never true Within the past 12 months, did you worry whether your food would run out before you got money to buy more?: Never true Do you have trouble paying for medicines?: No Do you have trouble getting transportation to medical appointments?: No Do you have trouble paying your heating and electricity bill?: No Do you have trouble taking care of your child, family member or friend?: No Do you have trouble with day-to-day activities such as bathing, preparing meals, shopping, managing finances, etc.?: No Are you currently unemployed and looking for a job?: No Are you interested in more education?: No Please select the resources that you would like help with: None Currently or been in a relationship where the following occur: no concerns reported AUDIT C Alcohol Use Questionnaire (AUDIT-C) 1. How often do you have a drink containing alcohol?: Monthly or less 2. How many drinks containing alcohol do you have on a typical day when you are drinking?: 1 or 2 3. How often do you have six or more drinks on one occasion?: Never Total Score: 1 Score Reviewed/Action Taken: Yes BRANDEN-7 AMB Questionnaire BRANDEN-7 Date BRANDEN - 7 assessed: 08/05/23 Feeling nervous, anxious, or on edge: 0 = Not at all Not being able to stop or control worryin = Not at all Worrying too much about different things: 0 = Not at all Trouble relaxin = Not at all Being so restless that it is hard to sit still: 0 = Not at all Becoming easily annoyed or irritable: 0 = Not at all Feeling afraid as if something awful might happen: 0 = Not at all Total BRANDEN-7 score (0-4 normal; 5-9 mild; 10-14 moderate; 15-21 severe): 0 Source: Developed by Drs. Fredi Garvin, Berenice Ortiz, Keaton Son and colleagues, with an educational eren from [employer]. Review of Systems Const Denies fatigue, Denies fever(s) and Denies headache(s) ENT Denies dysphagia, Denies dizziness, Denies otalgia, Denies headache(s), Denies neck pain, Denies odynophagia and Denies sore throat Card Denies chest pain, Denies rapid heart rate, Denies irregular heart rhythm, Denies palpitations and Denies dyspnea Resp Denies chest congestion, Denies cough, Denies dyspnea and Denies wheezing GI Denies abdominal pain, Denies constipation, Denies dysphagia, Denies heartburn, Denies diarrhea, Denies nausea, Denies odynophagia and Denies vomiting Denies difficulty urinating, Denies dysuria and Denies urinary frequency Musc Details: (+) right hand pain (S/P surgery a couple of days ago) - right hand is still in bandages Denies back pain and Denies neck pain Skin/Breast Denies rash Neuro Denies dizziness, Denies headache(s) and Denies paresthesias Endo Denies fatigue and Denies palpitations Aller/Immun Denies wheezing Physical exam (Primary Care) Vital Signs: Last Vital Signs Pulse 69 08/05/23 09:05 BP 142/90 H 08/05/23 09:05 Pulse Ox 95 08/05/23 09:05 Oxygen Delivery Method Room Air 08/05/23 09:05 BMI result Body Mass Index 31.2 Tobacco/Smoking Status: Tobacco use Status Tobacco use date assessed 08/05/23 08/05/23 09:11 Patient Tobacco Use Status Current everyday Tobacco 08/05/23 09:11 Tobacco use type Cigarette 08/05/23 09:11 e-Cigarette/Vaping Use Never Used 08/05/23 09:11 PHQ-9: PHQ-9 Score PHQ-9: Total score 0 08/05/23 09:11 Depression Screening Interpretation: Positive Depression Screening Follow-up: Existing condition and In treatment Thrive Assessment: Date of Thrive Assessment Date Thrive assessed 08/05/23 08/05/23 09:11 Currently or been in a relationship where the following occur: no concerns reported Const General: no acute distress and alert HENMT Ears: TM's normal bilaterally and EAC's normal Throat: Yes posterior oropharynx normal and Yes tonsils normal (no TP congestion) Neck Neck: Yes no lymphadenopathy and Yes supple Thyroid: Thyroid normal Resp Auscultation: clear to auscultation bilaterally, no crackles, no rales and no wheezes Cardio Rate: regular rate Rhythm: regular rhythm Heart sounds: no murmurs GI Palpation (GI): Soft to palpation and nontender Auscultation: normal bowel sounds General: Yes no CVA tenderness Back/Spine/Pelvis Back: no CVA tenderness Thoracic/Lumbar Spine: No lumbar spinal tenderness Skin Rashes: no rashes Extrem Other: right hand is currently still in bandages - s/p hand surgery a couple of days ago - had carpal tunnel release and trigger finger(s) release done General: Yes no clubbing, cyanosis or edema Office Procedures Flu Questionnaire Does the patient have a severe egg allergy?: No Does the patient have severe life threatening allergies?: No Does the patient have a fever or illness today?: No Has the patient ever had Guillain-Hyrum Syndrome?: No Has the patient ever had any past reaction to a flu shot?: No Immunizations flu vacc [id number] 6mos up(PF) 60 mcg(15 mcgx4)/0.5 mL IM syringe Performing Provider: Brent Stewart MD Performing Location: [facility] Administered by: Diana Rojas on 08/05/23 09:15 Dose Route Admin Location Dispensed Lot Number Expiration Date NDC [place] Measurer 0.5 mL IM Left Deltoid 0.5 mL [id number] 04/17/24 [id number] [employer] VIS Given Date VIS Provided VIS Publication Date 08/05/23 Single Vaccine 21 Eligibility Eligibility Date Funding Source Not VF Eligible 08/05/23 Private Results Reviewed Results Reviewed: Laboratory Tests 08/03/23 08:55 WBC 9.7 Hgb 14.5 Hct 42.3 Plt Count 175 Sodium 136 Potassium 4.2 Creatinine 0.72 Estimated GFR > 60 Fasting Glucose 112 H Hemoglobin A1c % 5.0 Calcium 8.8 AST 38 H ALT 51 H Triglycerides 236 H Cholesterol 148 LDL Cholesterol, Calc 74 HDL Cholesterol 27 L 25-OH Vitamin D Total 40.1 TSH 1.83 Free T4 1.08 Ur Specific [place] 1.015 Urine Protein Negative Urine Glucose (UA) Negative Urine Blood Trace H Assessment and Plan Assessment & Plan (1) Annual physical exam: Code(s): Z00.00 - Encounter for general adult medical examination without abnormal findings Plan: Results of his labs done a couple of months ago reviewed and discussed with patient He is up-to-date with all of his cancer screenings (2) Benign essential hypertension: Code(s): I10 - Essential (primary) hypertension Plan: Reinforced low sodium diet - goal is systolic BP of 120 mm or less Continue Lisinopril 5 mg QD Is also on Verapamil 80 mg TID for his SVT - advised that this helps somewhat with his BP (3) Supraventricular tachycardia: Code(s): I47.1 - Supraventricular tachycardia Plan: Has no recurrence of symptoms - continue Verapamil 80 mg TID Follow up with cardiology as scheduled (4) Mixed hyperlipidemia: Code(s): E78.2 - Mixed hyperlipidemia Plan: His serum triglycerides went back up to 236 mg/dl although his LDL cholesterol improved to 74 mg/dl and total cholesterol to 148 mg/dl on his recent labs Reinforced low cholesterol diet Continue Fish Oil capsules 1000 mg once a day and Gemfibrozil 600 mg QD (recalls experiencing a lot of muscle cramps while he was on Tricor a few years ago) Has been advised that we may need to consider starting him on statins if his LDL cholesterol does not improve - will hold off for now as he was able to get his numbers down recently Will recheck his labs and fasting lipids in 4 months for follow up (5) Acquired hypothyroidism: Code(s): E03.9 - Hypothyroidism, unspecified Plan: TFTs were again normal on his recent labs Continue Levothyroxine 175 mcg QD (6) Elevated LFTs: Code(s): R79.89 - Other specified abnormal findings of blood chemistry Plan: Cautioned that his LFTs are still elevated on his recent labs although they have decreased from previous - are most likely due to a combination of his weight, cholesterol level and alcohol intake Reinforced diet, exercise, lose weight and abstinence from alcohol Will continue to monitor his LFTs regularly (7) Arthralgia: Code(s): M25.50 - Pain in unspecified joint Qualifiers: Joint pain location: unspecified Qualified Code(s): M25.50 - Pain in unspecified joint Plan: Due to his family history and per request, will send him for some labs to check him out again for any CTDs, including RA and lupus Will recommend rheumatology referral if any of his tests come back suggesting the presence of any CTDs or inflammatory joint disease (8) BPH w urinary obs/LUTS: Code(s): N40.1 - Benign prostatic hyperplasia with lower urinary tract symptoms; N13.8 - Other obstructive and reflux uropathy Plan: S/P multiple prostate Bx with Dr. Estes at [facility] [place] a few months ago - is happy that his biopsies all came back negative for malignancy States that all of his recent imaging studies (MRI, US) were also negative Continue Finasteride 5 mg QD and Tadalafil 5 mg QD Follow up with urology as scheduled (9) Anxiety: Code(s): F41.9 - Anxiety disorder, unspecified Plan: Continue Citalopram 20 mg QD (10) Depression: Code(s): F32.A - Depression, unspecified Qualifiers: Depression Type: major depressive disorder Major depression recurrence: recurrent Active/Remission status: currently active Major depression episode severity: unspecified Qualified Code(s): F33.9 - Major depressive disorder, recurrent, unspecified Plan: Continue Citalopram 20 mg QD Follow up with psychiatry as scheduled (11) Obesity (BMI 30-39.9): Code(s): E66.9 - Obesity, unspecified Plan: Reinforced diet/exercise as tolerated/lose weight Plan Per request, flu vaccine given today Follow up in 4 months Orders: Orders Influenza [id number] Immunization Today Z23 - Encounter for immunization C Reactive Protein Today M25.50 - Pain in unspecified joint Lipid Panel 4 Months E78.00 - Pure hypercholesterolemia, unspecified Complete Blood Count Auto Diff 4 Months I10 - Essential (primary) hypertension Vitamin D 25-OH Total 4 Months E55.9 - Vitamin D deficiency, unspecified Erythrocyte Sedimentation Rate Today M25.50 - Pain in unspecified joint LORE Reflex Titer and Pattern Today M25.50 - Pain in unspecified joint Rheumatoid Factor Today M25.50 - Pain in unspecified joint Comprehensive [place]. Panel Fast 4 Months E78.00 - Pure hypercholesterolemia, unspecified Thyroid Stimulating Hormone 4 Months E03.9 - Hypothyroidism, unspecified Free T4 (Free Thyroxine) 4 Months E03.9 - Hypothyroidism, unspecified UA CC w/rflx Micro + Cult 4 Months R30.0 - Dysuria Gamma Glutamyl Transpeptidase 4 Months R79.89 - Other specified abnormal findings of blood chemistry Medications: Refilled albuterol sulfate 90 mcg/actuation 2 puffs PO Q6H PRN 8.5 grams 3RF shortness of breath or wheezing J18.9 - Pneumonia, unspecified organism, R06.00 - Dyspnea, unspecified Coding Level of Care Code Est Pt Level 4 (36401) Diagnoses Annual physical exam Z00.00 Benign essential hypertension I10 Supraventricular tachycardia I47.1 Mixed hyperlipidemia E78.2 Acquired hypothyroidism E03.9 Elevated LFTs R79.89 Arthralgia, unspecified joint M25.50 Joint pain location: unspecified BPH w urinary obs/LUTS N40.1; N13.8 Anxiety F41.9 Episode of recurrent major depressive disorder, unspecified depression episode severity F33.9 Depression Type: major depressive disorder Major depression recurrence: recurrent Active/Remission status: currently active Major depression episode severity: unspecified Obesity (BMI 30-39.9) E66.9
== END 2023-08-05 09:46 | disposition home or self-care (01) ==
PROVIDERS: Visit Provider Internal Medicine
DX: Z23 Encounter for immunization (principal)
CPT/HCPCS: 90471; 90686; 99214

== ENCOUNTER 2023-08-05 10:06 | Outpatient (REF) | payer BC, SELFPAY ==
[2023-08-05 11:11] LABS: Rheumatoid Factor < 13.0 IU/mL (<15.0)
[2023-08-05 11:14] LABS: C Reactive Protein 1.72 mg/dL (< or = 0.50)
[2023-08-05 11:52] LABS: Erythrocyte Sedimentation Rate 8 MM/HR (0-15)
[2023-08-10 10:00] LABS: Anti Nuclear Antibody Screen NEGATIVE (NEGATIVE)
== END 2023-08-05 10:07 | disposition home or self-care (01) ==
LOC: HO.10HDL 10:06
PROVIDERS: Visit Provider Internal Medicine
DX: M25.50 Pain in unspecified joint (principal)
CPT/HCPCS: 36415; 85652; 86038; 86140; 86431

== ENCOUNTER 2023-08-18 08:50 | Outpatient (AMB) | payer BC, SELFPAY ==
--- NOTE | 2023-08-18 08:53 | MHC.OFFVIS ---
Intake Vital Signs 08/18/23 08:59 Height 5 ft 10 in Weight 217 lb BMI 31.1 Intake Visit Reasons: PO RT CTR, MT Trigger, RF Trigger 08/03/23R Intake Note: Lorenzo 52 yr old male presents today for his P/O visit for his right CTR and trigger release for his middle and ring finger from 08/03/23. Patiemt reports he no longer has numbness and his finger has not triggered. Allergies sulfamethoxazole [From Bactrim] Allergy (Intermediate, Verified 08/18/23 08:59) mucosal and hand rash/scaling trimethoprim [From Bactrim] Allergy (Intermediate, Verified 08/18/23 08:59) mucosal and hand rash/scaling amoxicillin Allergy (Unknown, Verified 08/18/23 08:59) Unknown fenofibrate [From TRICOR] Allergy (Unknown, Verified 08/18/23 08:59) UNKNOWN HPI PO RT CTR, MT Trigger, RF Trigger 08/03/23R HPI Details Lorenzo is a 52 year old right hand dominant man who presents S/P right carpal tunnel release, middle finger trigger release, and ring finger trigger release, DOS: 08/03/23. He says he is doing well. His sensation is improved and he no longer has any nighttime symptoms. He no longer has any locking or catching. He is happy with the results of his surgery. 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 [facility] Medical History (Updated 08/18/23 @ 09:21 by Dragan Polk) Trigger finger, right middle finger Mixed hyperlipidemia Impaired fasting glucose Depression Obesity (BMI 30-39.9) Anxiety Hypertriglyceridemia Supraventricular tachycardia Acquired hypothyroidism Benign essential hypertension Pleuritic chest pain Pneumonia Sepsis HTN (hypertension) BPH w urinary obs/LUTS Hepatic steatosis Surgical History (Updated 08/05/23 @ 10:47 by Brent Stewart MD) S/P trigger finger release (~08/03/23) History of carpal tunnel release (~08/03/23) H/O right knee surgery Hx of meniscectomy of right knee History of cystoscopy History of colonoscopy History of back surgery Family History Father CVD (cardiovascular disease) Heart attack Rheumatoid arthritis Mother Dementia Social History Household Members: Significant Other Housing: House Do you presently have visiting nurse or other home services: No Alcohol intake: current Alcohol intake frequency: a few times a week Alcohol type: wine Patient Tobacco Use Status: Current everyday Tobacco user Tobacco use type: Cigarette Cigarettes Per Day: 3 Years Smoked: when I drink e-Cigarette/Vaping Use: Never Used Second Hand Smoke Exposure: No Advance Directives Date on File: 02/23/19 service: No Current occupational status: employed 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 Cognitive needs: No Hearing needs: No Vision needs: No Review of Systems Const All systems reviewed & are unremarkable except as noted in HPI and below Physical Exam Vital Signs: BMI result Body Mass Index 31.1 Const General: cooperative, healthy appearing and no acute distress Orientation/consciousness: patient oriented x3 HEENT Head: Yes normocephalic and Yes atraumatic Eyes EOM: EOMs intact bilaterally Resp Effort & Inspection: normal respiratory effort and able to speak in complete sentences Cardio Jugular venous distension: no JVD Skin General skin exam: turgor normal, ecchymosis (No) and erythema (No) Rashes: no rashes Trauma: no lacerations or abrasions Neuro Other: Vascular: Cap refill brisk General: patient oriented x3 Extrem Other: The patient was alert oriented and in no acute distress The incision is healing well with no erythema drainage or evidence of infection. Sutures removed and Steri-Strips applied He can make a fist and extend all his digits No locking or catching of his right hand Sensation is improved and now normal Cap refill is brisk He showed me visible and palpable locking catching of his left middle finger today. 06/10/23: EMG & NCV finding. Performed by Dr. Mathews 06/10/2023 General: Yes normal to inspection and Yes capillary refill normal Psych Appearance: grossly normal Affect: normal affect Attitude: cooperative Assessment & Plan Assessment & Plan (1) Carpal tunnel syndrome of right wrist: Code(s): G56.01 - Carpal tunnel syndrome, right upper limb (2) Trigger finger, right ring finger: Code(s): M65.341 - Trigger finger, right ring finger (3) Trigger finger, right middle finger: Code(s): M65.331 - Trigger finger, right middle finger (4) Trigger finger, left middle finger: Code(s): M65.332 - Trigger finger, left middle finger Plan Assessment and plan: 1. Right carpal tunnel syndrome, S/P release DOS: 08/03/23 Pre-operative symptoms intermittent but daily Now with normal sensation and good resolution of his nighttime symptoms 2. Right middle finger trigger finger, S/P release DOS: 08/03/23 3. Right ring finger trigger finger, S/P release DOS: 08/03/23 The patient appears to be doing well post-operatively I educated him about the post-operative course I explained the signs and symptoms of infection, if the patient develops any new or worsening erythema, drainage, pain, or warmth they should contact the clinic or attend the ED. I discussed activity modifications, he is to lift nothing heavier than a cellphone for the next two weeks He will perform gentle ROM exercises at home, including placing his hand flat on a table. He should avoid any underwater activities for the next 5 days He should gently massage about the incision site to reduce the risk of hypersensitivity He can follow up prn 4. 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 5. Right volar ulnar wrist mass Typically located where the FCU tendon comes to the pisiform. This appears to have resolved. If this recurs, he knows to contact us to be seen again. We can possibly treat this with an aspiration verses a steroid injection. It may be small cyst associated with the FCU tendon sheath. If I more concerned about a deeper cyst coming from the wrist joint were something that may be near the ulnar nerve or artery I may order an MRI. Scribed for Estrella Nguyen MD by Dragan Polk, director biomedical engineering, on 08/18/23 at 9:20 AM, EST. Coding Level of Care Code Global (58076) Diagnoses Carpal tunnel syndrome of right wrist G56.01 Trigger finger, right ring finger M65.341 Trigger finger, right middle finger M65.331 Trigger finger, left middle finger M65.332
[2023-08-18 08:59] VITALS: BMI 31.1
== END 2023-08-18 09:32 | disposition home or self-care (01) ==
PROVIDERS: PCP Internal Medicine; Visit Provider Orthopaedic Surgery
DX: G56.01 Carpal tunnel syndrome, right upper limb (principal); M65.341 Trigger finger, right ring finger; M65.331 Trigger finger, right middle finger; M65.332 Trigger finger, left middle finger
CPT/HCPCS: 99024

== ENCOUNTER → 2023-08-18 08:50 | Outpatient (BNVA) | payer BC, SELFPAY | PROVIDERS: PCP Internal Medicine; Visit Provider Orthopaedic Surgery ==

== ENCOUNTER 2023-12-07 14:04 | Outpatient (REF) | payer BC, SELFPAY ==
[2023-12-07 14:13] LABS: MANUAL DIFF FLAG NO
[2023-12-07 14:44] LABS: Basophils Absolute Auto 0.1 X10*3/uL (0.0-0.2); Basophils Percent Auto 0.6 % (0-2); Eosinophils Absolute Auto 0.3 X10*3/uL (0.0-0.4); Eosinophils Percent Auto 2.6 % (0-4); Hematocrit 43.2 % (42.0-52.0); Imm Gran Abs Auto 0.05 X10*3/uL (0.00-0.03); Imm Gran Pct Auto 0.5 % (0.0-0.4); Lymphocytes Absolute Auto 3.1 X10*3/uL (1.2-4.9); Lymphocytes Percent Auto 28.6 % (20-40); Mean Corpuscular HGB Conc 34.7 g/dl (31.0-36.0); Mean Corpuscular Hemoglobin 33.8 pg (27.0-33.0); Mean Corpuscular Volume 97.3 fL (80.0-98.0); Mean Platelet Volume 10.4 fL (9.4-12.4); Monocytes Absolute Auto 1.1 X10*3/uL (0.1-1.2); Monocytes Percent Auto 9.8 % (2-11); Neutrophils Absolute Auto 6.3 x10*3/uL (2.0-8.3); Neutrophils Percent Auto 57.9 % (45-73); Platelet Count 158 X10*3/uL (160-400); Red Blood Count 4.44 X10*6/uL (4.60-5.80); Red Cell Distribution Width 12.1 % (11.0-16.0); White Blood Count 10.8 X10*3/uL (4.8-10.8)
[2023-12-07 14:46] LABS: Appearance Urine Clear; Color Urine Yellow; Glucose Urine UA Negative (Negative); Leukocyte Esterase Urine Trace (Negative); Nitrite Urine Negative (Negative); Specific Gravity - Urine <= 1.005 (1.005-1.025); UMIC TRIGGER UACC YES; Urine Blood Negative (Negative); Urine Ketones Negative (Negative); Urine Protein Negative (Neg-Trace)
[2023-12-07 14:50] LABS: Bacteria Urine None Seen (None Seen); Hyaline Casts Urine 0-2 /LPF (0-2); RBC Urine 0-2 /HPF (0-2); Squamous Epithelial Cell Urine 0-2 /HPF (0-2); WBC Urine 0-5 /HPF (0-5)
[2023-12-07 15:29] LABS: Alanine Aminotransferase 79 U/L (0-40); Albumin Level 4.2 g/dL (3.5-5.0); Alkaline Phosphatase 71 U/L (39-117); Anion Gap 14 (12-20); Aspartate Amino Transferase 60 U/L (5-37); Bilirubin Total 0.6 mg/dL (0.0-1.0); Blood Urea Nitrogen 11 mg/dL (9-16); Calcium 9.1 mg/dL (8.4-10.2); Carbon Dioxide 26 mmol/L (22-29); Chloride 101 mmol/L (96-108); Cholesterol 175 mg/dL (<200); Estimated Glomerular Filt Rate > 60; Gamma Glutamyl Transpeptidase 389 U/L (11-51); Glucose Fasting 124 mg/dL (60-99); HDL Cholesterol 27 mg/dL (>40); Potassium 3.6 mmol/L (3.3-5.1); Sodium 137 mmol/L (135-145); Total Protein 7.4 g/dL (6.5-8.0); Triglycerides 503 mg/dL (<150)
[2023-12-07 15:47] LABS: Thyroid Stimulating Hormone 4.71 uIU/mL (0.32-4.0); Vitamin D 25-OH Total 34.7 ng/mL (>30)
== END 2023-12-07 14:05 | disposition home or self-care (01) ==
LOC: HO.LAB 14:04
PROVIDERS: PCP Internal Medicine; Visit Provider Urology
DX: E78.00 Pure hypercholesterolemia, unspecified (principal); I10 Essential (primary) hypertension; E55.9 Vitamin D deficiency, unspecified; E03.9 Hypothyroidism, unspecified; R79.89 Other specified abnormal findings of blood chemistry
CPT/HCPCS: 36415; 80053; 80061; 81001; 82306; 82977; 84439; 84443; 85025

== ENCOUNTER 2023-12-14 09:37 | Outpatient (REF) | payer BC, SELFPAY ==
[2023-12-14 11:15] LABS: Appearance Urine Clear; Color Urine Yellow; Glucose Urine UA Negative (Negative); Leukocyte Esterase Urine Negative (Negative); Nitrite Urine Negative (Negative); PH 6.5 (5.0-9.0); Urine Blood Negative (Negative); Urine Ketones Negative (Negative); Urine Protein Negative (Neg-Trace)
[2023-12-14 11:25] LABS: Cholesterol 161 mg/dL (<200); HDL Cholesterol 27 mg/dL (>40); LDL Cholesterol Calculated 107 mg/dL (<100); Triglycerides 135 mg/dL (<150)
[2023-12-14 11:44] LABS: Prostate Specific Antigen 17.42 ng/mL (<0.05-4.0)
== END 2023-12-14 09:38 | disposition home or self-care (01) ==
LOC: HO.LAB 09:37
PROVIDERS: Absent Provider Urology; PCP Internal Medicine; Visit Provider Internal Medicine
DX: Z12.5 Encounter for screening for malignant neoplasm of prostate (principal); R97.20 Elevated prostate specific antigen [PSA]; R30.0 Dysuria; E78.00 Pure hypercholesterolemia, unspecified
CPT/HCPCS: 36415; 80061; 81003; 84153

== ENCOUNTER 2023-12-16 08:56 | Outpatient (AMB) | payer BC, SELFPAY ==
--- NOTE | 2023-12-16 08:56 | MHC.PC.OV ---
Vital Signs 12/16/23 08:57 Height 5 ft 10 in Weight 220 lb BMI 31.6 BP 152/80 H Blood Pressure Location Lt brachial Position Sitting Pulse 73 Pulse Source Pulse Oximeter Pulse Oximetry (%) 96 Oxygen Delivery Method Room Air Intake Visit Reasons: 4 Month F/U Intake Note: Patient is here to follow up on 4 months Inspector Machine Cut Glass Required: No Allergies sulfamethoxazole [From Bactrim] Allergy (Intermediate, Verified 12/16/23 09:11) mucosal and hand rash/scaling trimethoprim [From Bactrim] Allergy (Intermediate, Verified 12/16/23 09:11) mucosal and hand rash/scaling amoxicillin Allergy (Unknown, Verified 12/16/23 09:11) Unknown fenofibrate [From TRICOR] Allergy (Unknown, Verified 12/16/23 09:11) UNKNOWN Medication List - Last Reconciled 12/16/23 by Brent Stewart MD albuterol sulfate 90 mcg/actuation 2 puffs PO Q6H PRN ascorbic acid (vitamin C) 500 mg PO DAILY citalopram 20 mg PO DAILY 90 days diclofenac sodium 1% 1 ea topical DAILY finasteride 5 mg PO DAILY 90 days levothyroxine 175 mcg PO DAILY 60 days lisinopril 5 mg PO DAILY 90 days multivitamin with minerals (Men's One Daily tablet) 1 tab PO DAILY mupirocin 2% 1 appl topical TID mupirocin calcium 2% 1 appl topical TID 30 days omega-3 fatty acids (Fish Oil Concentrate) 1,000 mg PO DAILY oxycodone-acetaminophen 5-325 mg 1 tab PO Q6H PRN tadalafil 5 mg PO DAILY 90 days verapamil 80 mg PO TID 90 days Tobacco use date assessed: 12/16/23 Dental Screening Dental Screen Date: 12/16/23 Did you have a dental visit in the last 12 months?: Yes Did you have a dental problem in the last 6 months where you did not have access to dental care?: No Was dental information given to patient?: Patient has dentist HPI 4 Month F/U HPI Details Patient comes in today for his follow up visit States that he is currently feeling okay but relates that he's had 2 separate bouts of stomach virus (Norovirus) over the past couple of weeks Relates that he was nauseous and throwing up as well as passing out loose watery stools for a while and that his symptoms are just starting to subside - is now eating okay and his bowel movements are back to normal Is currently also getting over a cold that he's had for the past few days Still has some chest congestion and on and off coughing - coughs up minimal whitish to yellowish phlegm at times but denies any SOB He denies any headaches or dizziness; denies any fever or sore throat Denies any chest pains No nausea/vomiting and no abdominal pains at present Had his follow up labs done in the past week - to discuss his results [facility] Medical History Trigger finger, right middle finger Mixed hyperlipidemia Impaired fasting glucose Depression Obesity (BMI 30-39.9) Anxiety Hypertriglyceridemia Supraventricular tachycardia Acquired hypothyroidism Benign essential hypertension Pleuritic chest pain Pneumonia Sepsis HTN (hypertension) BPH w urinary obs/LUTS Hepatic steatosis Surgical History S/P trigger finger release (~08/03/23) History of carpal tunnel release (~08/03/23) H/O right knee surgery Hx of meniscectomy of right knee History of cystoscopy History of colonoscopy History of back surgery Family History Father CVD (cardiovascular disease) Heart attack Rheumatoid arthritis Mother Dementia Social History Household Members: Significant Other Housing: House Do you presently have visiting nurse or other home services: No Alcohol intake: current Alcohol intake frequency: a few times a week Alcohol type: wine Comment: pt states tylenol will help him better Patient Tobacco Use Status: Current everyday Tobacco user Tobacco use type: Cigarette Cigarettes Per Day: 3 Years Smoked: when I drink e-Cigarette/Vaping Use: Never Used Second Hand Smoke Exposure: No Advance Directives Date on File: 02/23/19 service: No Current occupational status: employed 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 1. Little interest or pleasure in doing things: not at all 2. Feeling down, depressed, or hopeless: not at all 3. Trouble falling or staying asleep, or sleeping too much: not at all 4. Feeling tired or having little energy: not at all 5. Poor appetite or overeating: not at all 6. Feeling bad about yourself - or that you are a failure or have let yourself or your family down: not at all 7. Trouble concentrating on things, such as reading the newspaper or watching television: not at all 8. Moving or speaking so slowly that other people could have noticed. Or the opposite - being so fidgety or restless that you have been moving around a lot more than usual: not at all 9. Thoughts that you would be better off or of hurting yourself in some way: not at all Total score: 0 Depression Screening Interpretation: Positive Depression Screening Follow-up: Existing condition and In treatment Depression Screening Done: Yes [id number] - PHQ-9 Billing: Yes Source: Developed by Drs. Fredi Garvin, Berenice Ortiz, Keaton Son and colleagues, with an educational eren from [employer]. Thrive Questionnaire Date Thrive assessed: 12/16/23 I am a: Patient What is your living situation today?: I have a steady place to live Within the past 12 months, did the food you bought not last and you didn't have the money to get more?: Never true Within the past 12 months, did you worry whether your food would run out before you got money to buy more?: Never true Do you have trouble paying for medicines?: No Do you have trouble getting transportation to medical appointments?: No Do you have trouble paying your heating and electricity bill?: No Do you have trouble taking care of your child, family member or friend?: No Do you have trouble with day-to-day activities such as bathing, preparing meals, shopping, managing finances, etc.?: No Are you currently unemployed and looking for a job?: No Are you interested in more education?: No Please select the resources that you would like help with: None Currently or been in a relationship where the following occur: no concerns reported THRIVE Score: 0 AUDIT C Alcohol Use Questionnaire (AUDIT-C) 1. How often do you have a drink containing alcohol?: Monthly or less 2. How many drinks containing alcohol do you have on a typical day when you are drinking?: 1 or 2 3. How often do you have six or more drinks on one occasion?: Never Total Score: 1 Score Reviewed/Action Taken: Yes BRANDEN-7 AMB Questionnaire BRANDEN-7 Date BRANDEN - 7 assessed: 12/16/23 Source: Developed by Drs. Fredi Garvin, Berenice Ortiz, Keaton Son and colleagues, with an educational eren from [employer]. Review of Systems Const Denies chills, Denies fatigue, Denies fever(s) and Denies headache(s) ENT Denies dysphagia, Denies dizziness, Denies otalgia, Denies headache(s), Reports nasal congestion, Denies neck pain, Denies odynophagia and Denies sore throat Card Denies chest pain, Denies rapid heart rate, Denies irregular heart rhythm, Denies palpitations and Denies dyspnea Resp Reports chest congestion (mild), Reports cough (on and off; coughs up minimal whitish to yellowish phlegm at times), Denies dyspnea and Denies wheezing GI Denies abdominal pain, Denies hematochezia, Denies constipation, Denies dysphagia, Denies heartburn, Denies diarrhea, Denies nausea, Denies odynophagia and Denies vomiting Denies difficulty urinating, Denies dysuria and Denies urinary frequency Musc Denies back pain and Denies neck pain Skin/Breast Denies rash Neuro Denies dizziness, Denies headache(s) and Denies paresthesias Endo Denies fatigue and Denies palpitations Aller/Immun Denies wheezing Physical exam (Primary Care) Vital Signs: Last Vital Signs Pulse 73 12/16/23 08:57 BP 152/80 H 12/16/23 08:57 Pulse Ox 96 12/16/23 08:57 Oxygen Delivery Method Room Air 12/16/23 08:57 BMI result Body Mass Index 31.6 Tobacco/Smoking Status: Tobacco use Status Tobacco use date assessed 12/16/23 12/16/23 09:01 Patient Tobacco Use Status Current everyday Tobacco 12/16/23 09:01 Tobacco use type Cigarette 12/16/23 09:01 e-Cigarette/Vaping Use Never Used 12/16/23 09:01 Depression Screening Interpretation: Positive Depression Screening Follow-up: Existing condition and In treatment Thrive Assessment: Date of Thrive Assessment Date Thrive assessed 12/16/23 12/16/23 09:01 Currently or been in a relationship where the following occur: no concerns reported Const General: no acute distress and alert HENMT Ears: TM's normal bilaterally and EAC's normal General nose exam: no nasal discharge noted Throat: Yes posterior oropharynx normal and Yes tonsils normal (no TP congestion) Neck Neck: Yes no lymphadenopathy and Yes supple Thyroid: Thyroid normal Resp Auscultation: clear to auscultation bilaterally, no crackles, no rales, rhonchi (occasional) lower bilaterally and no wheezes Cardio Rate: regular rate Rhythm: regular rhythm Heart sounds: no murmurs GI Palpation (GI): Soft to palpation and nontender Auscultation: normal bowel sounds General: Yes no CVA tenderness Back/Spine/Pelvis Back: no CVA tenderness Thoracic/Lumbar Spine: No lumbar spinal tenderness Skin Rashes: no rashes Extrem Other: right hand is currently still in bandages - s/p hand surgery a couple of days ago - had carpal tunnel release and trigger finger(s) release done General: Yes no clubbing, cyanosis or edema Results Reviewed Results Reviewed: Laboratory Tests 08/03/23 12/07/23 12/07/23 08:55 14:12 14:12 WBC 10.8 Hgb 15.0 Hct 43.2 Plt Count 158 L Sodium Potassium Creatinine 0.80 Estimated GFR > 60 Fasting Glucose 124 H Hemoglobin A1c % 5.0 Calcium 9.1 GGT AST ALT Triglycerides Cholesterol LDL Cholesterol, Calc HDL Cholesterol Prostate Specific Ag 25-OH Vitamin D Total 34.7 TSH 4.71 H Free T4 0.90 Ur Specific [place] Urine Protein Urine Glucose (UA) Urine Blood Urine Nitrite Ur Leukocyte Esterase 12/07/23 12/07/23 12/14/23 14:12 14:12 09:46 WBC Hgb Hct Plt Count Sodium 137 Potassium 3.6 Creatinine Estimated GFR Fasting Glucose Hemoglobin A1c % Calcium GGT 389 H AST 60 H ALT 79 H Triglycerides Cholesterol LDL Cholesterol, Calc HDL Cholesterol Prostate Specific Ag 25-OH Vitamin D Total TSH Free T4 Ur Specific [place] 1.010 Urine Protein Negative Urine Glucose (UA) Negative Urine Blood Negative Urine Nitrite Negative Ur Leukocyte Esterase Negative 12/14/23 12/14/23 12/14/23 09:47 09:47 09:47 WBC Hgb Hct Plt Count Sodium Potassium Creatinine Estimated GFR Fasting Glucose Hemoglobin A1c % Calcium GGT AST ALT Triglycerides 135 Cholesterol 161 LDL Cholesterol, Calc 107 H HDL Cholesterol 27 L Prostate Specific Ag 17.42 H 25-OH Vitamin D Total TSH Free T4 Ur Specific [place] Urine Protein Urine Glucose (UA) Urine Blood Urine Nitrite Ur Leukocyte Esterase Assessment and Plan Assessment & Plan (1) Benign essential hypertension: Code(s): I10 - Essential (primary) hypertension Plan: Reinforced low sodium diet - goal is systolic BP of 120 mm or less Continue Lisinopril 5 mg QD Is also on Verapamil 80 mg TID for his SVT - advised that this helps somewhat with his BP (2) Supraventricular tachycardia: Code(s): I47.1 - Supraventricular tachycardia Plan: Has no recurrence of symptoms - continue Verapamil 80 mg TID Follow up with cardiology as scheduled (3) Mixed hyperlipidemia: Code(s): E78.2 - Mixed hyperlipidemia Plan: Results of his labs done over the past week reviewed and discussed with patient His serum triglycerides have improved significantly from previous and is now at 135 mg/dl; LDL cholesterol is at 107 mg/dl Reinforced low cholesterol diet Continue Fish Oil capsules 1000 mg once a day and Gemfibrozil 600 mg QD (was experiencing a lot of muscle cramps when he was on Tricor a few years ago) Will continue to hold off on starting him on statins for now, especially since his LFTs have gone up again lately Will recheck his labs and fasting lipids in 4 months for follow up (4) Acquired hypothyroidism: Code(s): E03.9 - Hypothyroidism, unspecified Plan: His serum TSH went up but free T4 remains normal on his recent labs Continue Levothyroxine 175 mcg QD (5) Elevated LFTs: Code(s): R79.89 - Other specified abnormal findings of blood chemistry Plan: Cautioned that his LFTs have increased again significantly from previous - are again most likely due to a combination of his weight, cholesterol level and alcohol intake as well as his recent bouts with Norovirus (twice in the past couple of weeks) - [place] over the past 2 weeks Reinforced diet, exercise, lose weight and abstinence from alcohol Will continue to monitor his LFTs regularly (6) Impaired fasting glucose: Code(s): R73.01 - Impaired fasting glucose Plan: His HgbA1c was normal at 5.0% when previously checked a few months ago Reinforced low calorie/low carb diet, exercise as tolerated (7) Arthralgia: Code(s): M25.50 - Pain in unspecified joint Qualifiers: Joint pain location: unspecified Qualified Code(s): M25.50 - Pain in unspecified joint Plan: Have advised patient that his previous labs for inflammatory joint diseases have all come back negative (8) BPH w urinary obs/LUTS: Code(s): N40.1 - Benign prostatic hyperplasia with lower urinary tract symptoms; N13.8 - Other obstructive and reflux uropathy Plan: S/P multiple prostate B[place] with [place] [facility] [place] - is happy that his biopsies all came back negative for malignancy States that all of his recent imaging studies (MRI, US) were also negative His PSA came back recently at 17.42, which is slightly lower than last year's number Continue Finasteride 5 mg QD and Tadalafil 5 mg QD Follow up with urology as scheduled (9) Viral gastroenteritis: Code(s): A08.4 - Viral intestinal infection, unspecified Plan: Resolving - had 2 separate bouts of Norovirus over the past couple of weeks (thinks that he caught this during his 2 separate trips up to a [place] in [place]) States that his bowel movements just got back to normal and he no longer has any nausea/vomiting and is now tolerating oral intake again Advised that his increased LFTs recently may also be in part due to his recent bouts with Norovirus He is encouraged to continue to increase his oral fluid intake (10) Upper respiratory tract infection: Code(s): J06.9 - Acute upper respiratory infection, unspecified Qualifiers: URI type: unspecified URI Qualified Code(s): J06.9 - Acute upper respiratory infection, unspecified Plan: Most likely viral Other than nasal/chest congestion and on and off coughing, he has no other concering symptoms (no SOB, no fever, no sore throat) Is presently taking some OTC cough/cold meds and feels that his symptoms are slowly improving Have instructed patient to call if his respiratory symptoms persist or get worse over the next week or two (11) Anxiety: Code(s): F41.9 - Anxiety disorder, unspecified Plan: Continue Citalopram 20 mg QD (12) Depression: Code(s): F32.A - Depression, unspecified Qualifiers: Depression Type: major depressive disorder Major depression recurrence: recurrent Active/Remission status: currently active Major depression episode severity: unspecified Qualified Code(s): F33.9 - Major depressive disorder, recurrent, unspecified Plan: Continue Citalopram 20 mg QD Follow up with psychiatry as scheduled (13) Obesity (BMI 30-39.9): Code(s): E66.9 - Obesity, unspecified Plan: Reinforced diet/exercise as tolerated/lose weight Plan Follow up in 4 months Orders: Orders Lipid Panel 4 Months E78.00 - Pure hypercholesterolemia, unspecified Complete Blood Count Auto Diff 4 Months D64.9 - Anemia, unspecified UA CC w/rflx Micro + Cult 4 Months R30.0 - Dysuria Free T4 (Free Thyroxine) 4 Months E03.9 - Hypothyroidism, unspecified Thyroid Stimulating Hormone 4 Months E03.9 - Hypothyroidism, unspecified Comprehensive [place]. Panel Fast 4 Months E78.00 - Pure hypercholesterolemia, unspecified Vitamin D 25-OH Total 4 Months E55.9 - Vitamin D deficiency, unspecified Hemoglobin A1c 4 Months R73.01 - Impaired fasting glucose Coding Level of Care Code Est Pt Level 4 (79734) Diagnoses Benign essential hypertension I10 Supraventricular tachycardia I47.1 Mixed hyperlipidemia E78.2 Acquired hypothyroidism E03.9 Elevated LFTs R79.89 Impaired fasting glucose R73.01 Arthralgia, unspecified joint M25.50 Joint pain location: unspecified BPH w urinary obs/LUTS N40.1; N13.8 Viral gastroenteritis A08.4 Upper respiratory tract infection, unspecified type J06.9 URI type: unspecified URI Anxiety F41.9 Episode of recurrent major depressive disorder, unspecified depression episode severity F33.9 Depression Type: major depressive disorder Major depression recurrence: recurrent Active/Remission status: currently active Major depression episode severity: unspecified Obesity (BMI 30-39.9) E66.9
[2023-12-16 08:57] VITALS: BP 152/80; PULSE 73; O2SAT 96; BMI 31.6
== END 2023-12-16 09:22 | disposition home or self-care (01) ==
PROVIDERS: PCP Internal Medicine; Visit Provider Internal Medicine
DX: I10 Essential (primary) hypertension (principal); I47.10 Supraventricular tachycardia, unspecified; E78.2 Mixed hyperlipidemia; E03.9 Hypothyroidism, unspecified; R79.89 Other specified abnormal findings of blood chemistry; R73.01 Impaired fasting glucose; M25.50 Pain in unspecified joint; N40.1 Benign prostatic hyperplasia with lower urinary tract symptoms; N13.8 Other obstructive and reflux uropathy; A08.4 Viral intestinal infection, unspecified; J06.9 Acute upper respiratory infection, unspecified; F33.9 Major depressive disorder, recurrent, unspecified
CPT/HCPCS: 99214

== ENCOUNTER 2023-12-23 15:04 | Outpatient (AMB) | payer BC, SELFPAY ==
--- NOTE | 2023-12-23 15:04 | A.OFFVIS_ITS ---
Intake Intake Visit Reasons: 6M PSA(set)Confirmed Intake Note: Patient presents today for a telehealth follow up on PSA Meds- Finasteride, Tadalafil Allergies to Antibiotic- Sulfa, Bactrim,Amoxicillin Blood Thinner- None Firer Diesel Locomotive Required: No Allergies sulfamethoxazole [From Bactrim] Allergy (Intermediate, Verified 12/23/23 15:07) mucosal and hand rash/scaling trimethoprim [From Bactrim] Allergy (Intermediate, Verified 12/23/23 15:07) mucosal and hand rash/scaling amoxicillin Allergy (Unknown, Verified 12/23/23 15:07) Unknown fenofibrate [From TRICOR] Allergy (Unknown, Verified 12/23/23 15:07) UNKNOWN HPI HPI Comments History of Present Illness Details Lorenzo TAN is a very pleasant male. He is a patient of Dr. Stewart. He is seen for the following urologic conditions. - elevated PSA - Peyronie's with erectile dysfunction Telemedicine Evaluation 15 min Consultation DoxActix Jose Video attempted Discussed results with Lorenzo He was interested in his other testing that is being done recently The major abnormality is with the liver transaminases which consistent with heavy alcohol intake. This was discussed with the patient. The patient tells me he is planning to go [place] the [place] on the 17 of January when ski season finishes. Does notice that his urine stream is improved with finasteride. 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 Does have prior background of immune marker elevation. Other issue is erectile dysfunction. Would like to try daily Cialis. Prescription provided Elevated PSA/Abnormal OTIS: 08/06 MRI - left posteromedial mid gland 0.7cm lesion PiRADS 3 ExoDx - 08/08 Low Risk score 5 and 32 (variability) Prior biopsy complicated with post procedure prostatitis He presents for further evaluation of elevated PSA. Laboratory investigations include 07/07 15 - 05/08 10.2, 05/09 13, 11/10 18 on finasteride, 06/10 15, 12/12 17 Imaging investigations include - 08/06 MRI 55gm left signing agent/lateral midgland 7 mm PiRADS 3 - 04/09 MRI left mid gland 1.2 cm lesion now PI-RADS 4 Individualized Prostate Cancer Risk Calculator >10% high risk. A TRUS biopsy has been performed and is negative January 2019 PSA at biopsy 15 Overall symptoms are mild. Peyronie's Reports penile curvature Does not interfere with intercourse Suggest 6 month therapy with high-dose PDE5 and antioxidants PFSH Medical History Trigger finger, right middle finger Mixed hyperlipidemia Impaired fasting glucose Depression Obesity (BMI 30-39.9) Anxiety Hypertriglyceridemia Supraventricular tachycardia Acquired hypothyroidism Benign essential hypertension Pleuritic chest pain Pneumonia Sepsis HTN (hypertension) BPH w urinary obs/LUTS Hepatic steatosis Surgical History S/P trigger finger release (~08/03/23) History of carpal tunnel release (~08/03/23) H/O right knee surgery Hx of meniscectomy of right knee History of cystoscopy History of colonoscopy History of back surgery Family History Father CVD (cardiovascular disease) Heart attack Rheumatoid arthritis Mother Dementia Social History Household Members: Significant Other Housing: House Do you presently have visiting nurse or other home services: No Alcohol intake: current Alcohol intake frequency: a few times a week Alcohol type: wine Comment: pt states tylenol will help him better Patient Tobacco Use Status: Current everyday Tobacco user Tobacco use type: Cigarette Cigarettes Per Day: 3 Years Smoked: when I drink e-Cigarette/Vaping Use: Never Used Second Hand Smoke Exposure: No Advance Directives Date on File: 02/23/19 service: No Current occupational status: employed 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 Cognitive needs: No Hearing needs: No Vision needs: No Review of Systems Const All systems reviewed & are unremarkable except as noted in HPI and below Reports no additional complaints Resp Reports no additional complaints GI Reports no additional complaints Reports as per HPI Musc Reports no additional complaints Physical Exam Telemedicine evaluation Appropriate responses Regular breathing rate and rhythm HEENT Head: Yes normal to inspection Ears: hearing grossly normal bilaterally Eyes General: appearance normal, both eyes and all related structures Neck Neck: Yes normal visual inspection Chest Chest palpation & inspection: normal inspection of the chest Resp Effort & Inspection: normal respiratory effort and able to speak in complete sentences Assessment & Plan Assessment & Plan (1) BPH w urinary obs/LUTS: Code(s): N40.1 - Benign prostatic hyperplasia with lower urinary tract symptoms; N13.8 - Other obstructive and reflux uropathy (2) Elevated LFTs: Code(s): R79.89 - Other specified abnormal findings of blood chemistry (3) Elevated PSA: Comment: High PSA with prior negative biopsy Code(s): R97.20 - Elevated prostate specific antigen [PSA] Plan Six-month follow-up PSA Orders: Orders PSA,Total (Free>4and<10) 6 Months N13.8 - Other obstructive and reflux uropathy, N40.1 - Benign prostatic hyperplasia with lower urinary tract symptoms Prostate Specific Antigen 12/14/23 R97.20 - Elevated prostate specific antigen [PSA] Medications: Refilled finasteride 5 mg PO DAILY 90 days 90 tabs 1RF N13.8 - Other obstructive and reflux uropathy, N40.1 - Benign prostatic hyperplasia with lower urinary tract symptoms Patient Instructions: Imaging studies, laboratory and physical exam results were discussed and reviewed in detail. No major barriers to patient understanding were identified. An opportunity to ask questions regarding the treatment plan was provided. All questions were answered. The patient expressed understanding and agreement with the above treatment plan. The patient is aware they should contact our office by phone for worsening of their current condition or the appearance of new urologic symptoms. Compliance is encouraged with any medications and followup testing that is ordered. It is a privilege to participate in the urologic care of your patient. If you have any questions or concerns regarding treatment for the above conditions, or other urologic issues, please do not hesitate to contact me. The office telephone contact is [phone]. This note is constructed using voice recognition software. While every effort has been made to ensure accuracy receiving lead errors may have been included. Yours sincerely, Dr Tae Estes MD, [facility] - Urology Providers of Expert, Compassionate Care for the Genitourinary System Telehealth Telehealth Location of provider rendering services: practice address Location of patient: address on file Patient Identification confirmed using: Name, : Yes Telehealth method: video Patient verbally consented to treatment: Yes Patient verbally consented to billing insurance company: Yes Patient informed of any privacy concerns related to visit: Yes Coding Level of Care Code Tele Est Pt Level 3 (46414) Diagnoses BPH w urinary obs/LUTS N40.1; N13.8 Elevated LFTs R79.89 Elevated PSA R97.20
== END 2023-12-23 15:47 | disposition home or self-care (01) ==
LOC: HO.HUSH 15:04
PROVIDERS: PCP Internal Medicine; Referring Provider Internal Medicine; Visit Provider Urology
DX: N40.1 Benign prostatic hyperplasia with lower urinary tract symptoms (principal); N13.8 Other obstructive and reflux uropathy; R79.89 Other specified abnormal findings of blood chemistry; R97.20 Elevated prostate specific antigen [PSA]
CPT/HCPCS: 99213

== ENCOUNTER → 2023-12-23 15:04 | Outpatient (BNVA) | payer BC, SELFPAY | PROVIDERS: PCP Internal Medicine; Visit Provider Urology ==

== ENCOUNTER 2024-06-22 09:22 | Outpatient (REF) | payer BC, SELFPAY ==
[2024-06-22 11:57] LABS: PSA,Total (Free>4and<10) 13.16 ng/mL (0.00-4.00)
== END 2024-06-22 09:23 | disposition home or self-care (01) ==
LOC: HO.10HDL 09:22
PROVIDERS: Visit Provider Urology
DX: Z12.5 Encounter for screening for malignant neoplasm of prostate (principal); N40.1 Benign prostatic hyperplasia with lower urinary tract symptoms; N13.8 Other obstructive and reflux uropathy; R97.20 Elevated prostate specific antigen [PSA]
CPT/HCPCS: 36415; 84153

== ENCOUNTER 2024-06-23 11:22 | Outpatient (AMB) | payer BC, SELFPAY ==
--- NOTE | 2024-06-23 11:45 | MHC.OFFVIS ---
Intake Visit Reasons: 6M Follow Up-PSA(psa?) Intake Note: Patient is Present for Follow Up PSA Urology Medication: Finasteride, Tadalafil Antibiotic Allergies: Sulfa Antibiotics, Trimethroprim, Amoxicillin, Bactrim Blood Thinners: None PSA completed 06/22/2024 13.16 Last PSA 17.42 Distributor Publications Required: No Accompanied by: Self / Same As Patient Allergies sulfamethoxazole [From Bactrim] Allergy (Intermediate, Verified 06/23/24 11:50) mucosal and hand rash/scaling trimethoprim [From Bactrim] Allergy (Intermediate, Verified 06/23/24 11:50) mucosal and hand rash/scaling amoxicillin Allergy (Unknown, Verified 06/23/24 11:50) Unknown fenofibrate [From TRICOR] Allergy (Unknown, Verified 06/23/24 11:50) UNKNOWN Medication List - Last Reconciled 06/24/24 by Tae Estes MD albuterol sulfate 90 mcg/actuation 2 puffs PO Q6H PRN ascorbic acid (vitamin C) 500 mg PO DAILY azithromycin take 500 mg today (day 1), then 250 mg for 4 days (days 2-5) PO citalopram 20 mg PO DAILY 90 days diclofenac sodium 1% 1 ea topical DAILY doxycycline hyclate 100 mg PO BID 7 days finasteride 5 mg PO DAILY 90 days levothyroxine 175 mcg PO DAILY 60 days lisinopril 5 mg PO DAILY 90 days multivitamin with minerals (Men's One Daily tablet) 1 tab PO DAILY mupirocin 2% 1 appl topical TID mupirocin calcium 2% 1 appl topical TID 30 days omega-3 fatty acids (Fish Oil Concentrate) 1,000 mg PO DAILY oxycodone-acetaminophen 5-325 mg 1 tab PO Q6H PRN pentoxifylline ER 400 mg PO BID 90 days tadalafil 5 mg PO DAILY 90 days verapamil 80 mg PO TID 90 days vitamin E (dl, acetate) 450 mg PO DAILY 90 days HPI Comments Details: Lorenzo TAN is a very pleasant male. He is a patient of Dr. Stewart. He is seen for the following urologic conditions. - elevated PSA - Peyronie's with erectile dysfunction Discussed PSA Continue to follow Discussed Peyronie's progression Information provided regarding conservative therapy with penile pump, combination antioxidant medications Reviewed in six-month PSA 11/10 18.5, 12/12 17, 07/12 13 03/10 MRI ultrasound fusion biopsy - chronic inflammation no evidence of prostate cancer - 55gm Continue with PSA in 3 months - also high sensitivity CRP. Does have prior background of immune marker elevation. Erectile dysfunction - daily Cialis Elevated PSA/Abnormal OTIS: 08/06 MRI - left posteromedial mid gland 0.7cm lesion PiRADS 3 ExoDx - 08/08 Low Risk score 5 and 32 (variability) Prior biopsy complicated with post procedure prostatitis He presents for further evaluation of elevated PSA. Laboratory investigations include 07/07 15 - 12/07 16, 05/08 10.2, 05/09 13, 11/10 18 on finasteride, 06/10 15, 12/12 17 Imaging investigations include - 08/06 MRI 55gm left compact assembler/lateral midgland 7 mm PiRADS 3 - 04/09 MRI left mid gland 1.2 cm lesion now PI-RADS 4 - 55gm prostate Individualized Prostate Cancer Risk Calculator >10% high risk. A TRUS biopsy has been performed and is negative January 2019, 03/10 ultrasound fusion biopsy negative PSA at biopsy 15 Overall symptoms are mild. Peyronie's Reports penile curvature Does not interfere with intercourse Suggest 6 month therapy with high-dose PDE5 and antioxidants PFSH Medical History Trigger finger, right middle finger Mixed hyperlipidemia Impaired fasting glucose Depression Obesity (BMI 30-39.9) Anxiety Hypertriglyceridemia Supraventricular tachycardia Acquired hypothyroidism Benign essential hypertension Pleuritic chest pain Pneumonia Sepsis HTN (hypertension) BPH w urinary obs/LUTS Hepatic steatosis Surgical History S/P trigger finger release (~08/03/23) History of carpal tunnel release (~08/03/23) H/O right knee surgery Hx of meniscectomy of right knee History of cystoscopy History of colonoscopy History of back surgery Family History Father CVD (cardiovascular disease) Heart attack Rheumatoid arthritis Mother Dementia Social History Household Members: Significant Other Housing: House Do you presently have visiting nurse or other home services: No Alcohol intake: current Alcohol intake frequency: a few times a week Alcohol type: wine Comment: pt states tylenol will help him better Patient Tobacco Use Status: Current everyday Tobacco user Tobacco use type: Cigarette Cigarettes Per Day: 3 Years Smoked: when I drink e-Cigarette/Vaping Use: Never Used Second Hand Smoke Exposure: No Advance Directives Date on File: 02/23/19 service: No Current occupational status: employed 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 Cognitive needs: No Hearing needs: No Vision needs: No Review of Systems Const Denies chills and Denies fever(s) Card Reports no additional complaints and Denies syncope Resp Denies cough GI Denies abdominal pain and Denies heartburn Reports as per HPI and Denies change in libido Neuro Denies syncope Psych Denies change in libido Endo Denies change in libido Physical Exam Const General: cooperative, healthy appearing, comfortable and no acute distress Orientation/consciousness: patient oriented x3 HEENT Face and sinus: Yes normal facial exam Mouth: moist mucous membranes Neck Neck: Yes normal visual inspection, Yes full ROM and Yes trachea midline Chest Chest palpation & inspection: normal inspection of the chest Resp Effort & Inspection: normal respiratory effort, able to speak in complete sentences and no respiratory distress GI Inspection: Yes normal to inspection Back/Spine/Pelvis Cervical Spine: normal cervical lordosis Thoracic/Lumbar Spine: thoracic and lumbar spine normal to inspection Skin General skin exam: no rashes or lesions noted Neuro General: patient oriented x3, gait normal, tone normal and moves all extremities Extrem General: Yes normal to inspection and Yes capillary refill normal Assessment & Plan Assessment & Plan (1) Elevated PSA: Comment: High PSA with prior negative biopsy Code(s): R97.20 - Elevated prostate specific antigen [PSA] Category: Medical (2) BPH w urinary obs/LUTS: Code(s): N40.1 - Benign prostatic hyperplasia with lower urinary tract symptoms; N13.8 - Other obstructive and reflux uropathy Category: Medical (3) Peyronie's disease: Code(s): N48.6 - Induration penis plastica Category: Medical Plan Six-month follow-up labs office Orders: Orders Prostate Specific Antigen 06/22/24 R97.20 - Elevated prostate specific antigen [PSA] Prostate Specific Antigen 6 Months R97.20 - Elevated prostate specific antigen [PSA] Medications: New pentoxifylline ER administer with meals 400 mg PO BID 90 days 180 tabs 1RF N48.6 - Induration penis plastica vitamin E (dl, acetate) 450 mg PO DAILY 90 days 90 caps 1RF N48.6 - Induration penis plastica Patient Instructions: Imaging studies, laboratory and physical exam results were discussed and reviewed in detail. No major barriers to patient understanding were identified. An opportunity to ask questions regarding the treatment plan was provided. All questions were answered. The patient expressed understanding and agreement with the above treatment plan. The patient is aware they should contact our office by phone for worsening of their current condition or the appearance of new urologic symptoms. Compliance is encouraged with any medications and followup testing that is ordered. It is a privilege to participate in the urologic care of your patient. If you have any questions or concerns regarding treatment for the above conditions, or other urologic issues, please do not hesitate to contact me. The office telephone contact is [phone]. This note is constructed using voice recognition software. While every effort has been made to ensure accuracy engine repairer errors may have been included. Yours sincerely, Dr Tae Estes MD, [facility] - Urology Providers of Expert, Compassionate Care for the Genitourinary System Coding Level of Care Code Est Pt Level 4 (27271) Diagnoses Elevated PSA R97.20 BPH w urinary obs/LUTS N40.1; N13.8 Peyronie's disease N48.6
== END 2024-06-23 12:13 | disposition home or self-care (01) ==
PROVIDERS: PCP Internal Medicine; Visit Provider Urology
DX: R97.20 Elevated prostate specific antigen [PSA] (principal); N40.1 Benign prostatic hyperplasia with lower urinary tract symptoms; N13.8 Other obstructive and reflux uropathy; N48.6 Induration penis plastica
CPT/HCPCS: 99214

== ENCOUNTER → 2024-06-23 11:22 | Outpatient (BNVA) | payer BC, SELFPAY | PROVIDERS: PCP Internal Medicine; Visit Provider Urology ==

== ENCOUNTER 2024-11-29 08:52 | Outpatient (REF) | payer BC, SELFPAY ==
[2024-11-29 10:31] LABS: Appearance Urine Clear; Color Urine Yellow; Glucose Urine UA Negative (Negative); Leukocyte Esterase Urine Negative (Negative); Nitrite Urine Negative (Negative); Urine Blood Negative (Negative); Urine Ketones Negative (Negative); Urine Protein Negative (Neg-Trace)
[2024-11-29 10:55] LABS: Estimated Average Glucose 94 mg/dL; Hemoglobin A1C 126.9054 umol/L; Hemoglobin A1c % 4.9 % (<6.0); Total Hemoglobin (HGBA1C) 4237.1021 umol/L
[2024-11-29 11:13] LABS: Alanine Aminotransferase 163 U/L (0-40); Albumin Level 4.3 g/dL (3.5-5.0); Alkaline Phosphatase 70 U/L (39-117); Anion Gap 10 (12-20); Aspartate Amino Transferase 105 U/L (5-37); Bilirubin Total 0.7 mg/dL (0.0-1.0); Blood Urea Nitrogen 12 mg/dL (9-16); Calcium 8.9 mg/dL (8.4-10.2); Carbon Dioxide 25 mmol/L (22-29); Chloride 104 mmol/L (96-108); Cholesterol 161 mg/dL (<200); Estimated Glomerular Filt Rate > 60; Glucose Fasting 94 mg/dL (60-99); HDL Cholesterol 33 mg/dL (>40); LDL Cholesterol Calculated 95 mg/dL (<100); Potassium 3.6 mmol/L (3.3-5.1); Sodium 135 mmol/L (135-145); Total Protein 7.3 g/dL (6.5-8.0); Triglycerides 169 mg/dL (<150)
[2024-11-29 11:15] LABS: Free T4 (Free Thyroxine) 1.13 ng/dL (0.71-1.85); Thyroid Stimulating Hormone 10.03 uIU/mL (0.32-4.0); Vitamin D 25-OH Total 31.1 ng/mL (>30)
== END 2024-11-29 08:53 | disposition home or self-care (01) ==
LOC: HO.10HDL 08:52
PROVIDERS: Visit Provider Internal Medicine
DX: E78.00 Pure hypercholesterolemia, unspecified (principal); R30.0 Dysuria; E03.9 Hypothyroidism, unspecified; E55.9 Vitamin D deficiency, unspecified; R73.01 Impaired fasting glucose
CPT/HCPCS: 36415; 80053; 80061; 81003; 82306; 83036; 84439; 84443

== ENCOUNTER 2024-11-30 08:57 | Outpatient (AMB) | payer BC, SELFPAY ==
[2024-11-30 08:59] VITALS: BP 128/84; PULSE 63; O2SAT 95; BMI 31.3
--- NOTE | 2024-11-30 08:59 | MHC.PC.OV ---
Vital Signs 11/30/24 08:59 Height 5 ft 10 in Weight 218 lb 4 oz BMI 31.3 BP 128/84 Blood Pressure Location Lt brachial Position Sitting Pulse 63 Pulse Source Pulse Oximeter Pulse Oximetry (%) 95 Oxygen Delivery Method Room Air Intake Visit Reasons: HTN, hyperlipidemia, elevated LFTs [employer] Required: No Accompanied by: Self / Same As Patient Allergies sulfamethoxazole [From Bactrim] Allergy (Intermediate, Verified 11/30/24 09:16) mucosal and hand rash/scaling trimethoprim [From Bactrim] Allergy (Intermediate, Verified 11/30/24 09:16) mucosal and hand rash/scaling amoxicillin Allergy (Unknown, Verified 11/30/24 09:16) Unknown fenofibrate [From TRICOR] Allergy (Unknown, Verified 11/30/24 09:16) UNKNOWN Medication List - Last Reconciled 11/30/24 by Brent Stewart MD albuterol sulfate 90 mcg/actuation 2 puffs PO Q6H PRN ascorbic acid (vitamin C) 500 mg PO DAILY citalopram 20 mg PO DAILY 90 days diclofenac sodium 1% 1 ea topical DAILY finasteride 5 mg PO DAILY 90 days levothyroxine 175 mcg PO DAILY 60 days lisinopril 5 mg PO DAILY 90 days multivitamin with minerals (Men's One Daily tablet) 1 tab PO DAILY mupirocin 2% 1 appl topical TID mupirocin calcium 2% 1 appl topical TID 30 days omega-3 fatty acids (Fish Oil Concentrate) 1,000 mg PO DAILY oxycodone-acetaminophen 5-325 mg 1 tab PO Q6H PRN pentoxifylline ER 400 mg PO BID 90 days prednisone 20 mg PO DAILY 5 days tadalafil 5 mg PO DAILY 90 days verapamil 80 mg PO TID 90 days vitamin E (dl, acetate) 450 mg PO DAILY 90 days Tobacco use date assessed: 11/30/24 Dental Screening Dental Screen Date: 11/30/24 Did you have a dental visit in the last 12 months?: Yes Did you have a dental problem in the last 6 months where you did not have access to dental care?: No Was dental information given to patient?: Patient has dentist HPI HTN, hyperlipidemia, elevated LFTs HPI Details Patient comes in today for his follow up visit Relates that he was admitted overnight to [facility] in [place], [place] last week when he went to the hospital there with increasing SOB and congestion Adds that his blood pressure at the time ran up to around 215/108 mm Recalls that he was told that he had some respiratory virus at the time (he tested negative for COVID and influenza), was treated overnight and discharged home the next day on 11/25/2024 States that he was discharged home on some oral prednisone and instructed to continue using his Albuterol inhaler as needed Relates (+) fatigue but states that his symptoms gradually improved over the past weekend and he is currently feeling a lot better He denies any fever or sore throat; denies any headaches or dizziness Denies any chest pains, no increased SOB although he still feels some congestion in his chest and has an occasional cough every now and then ; states that his cough is non-productive No nausea/vomiting, no abdominal pain No change in bowel habits noted He had his follow up labs done yesterday - to discuss his results [facility] Medical History (Updated 11/30/24 @ 11:46 by Brent Stewart MD) 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 Trigger finger, right middle finger Mixed hyperlipidemia Impaired fasting glucose Depression Obesity (BMI 30-39.9) Anxiety Hypertriglyceridemia Supraventricular tachycardia Acquired hypothyroidism Benign essential hypertension Pleuritic chest pain Pneumonia Sepsis HTN (hypertension) BPH w urinary obs/LUTS Hepatic steatosis Surgical History S/P trigger finger release (~08/03/23) History of carpal tunnel release (~08/03/23) H/O right knee surgery Hx of meniscectomy of right knee History of cystoscopy History of colonoscopy History of back surgery Family History Father CVD (cardiovascular disease) Heart attack Rheumatoid arthritis Mother Dementia Social History Household Members: Significant Other Housing: House Do you presently have visiting nurse or other home services: No Alcohol intake: current Alcohol intake frequency: a few times a week Alcohol type: wine Comment: pt states tylenol will help him better Patient Tobacco Use Status: Current everyday Tobacco user Tobacco use type: Cigarette Cigarettes Per Day: 3 Years Smoked: when I drink e-Cigarette/Vaping Use: Never Used Second Hand Smoke Exposure: No Advance Directives Date on File: 02/23/19 service: No Current occupational status: employed 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 1. Little interest or pleasure in doing things: not at all 2. Feeling down, depressed, or hopeless: not at all 3. Trouble falling or staying asleep, or sleeping too much: not at all 4. Feeling tired or having little energy: not at all 5. Poor appetite or overeating: not at all 6. Feeling bad about yourself - or that you are a failure or have let yourself or your family down: not at all 7. Trouble concentrating on things, such as reading the newspaper or watching television: not at all 8. Moving or speaking so slowly that other people could have noticed. Or the opposite - being so fidgety or restless that you have been moving around a lot more than usual: not at all 9. Thoughts that you would be better off or of hurting yourself in some way: not at all Total score: 0 Depression Screening Interpretation: Positive Depression Screening Follow-up: Existing condition and In treatment Depression Screening Done: Yes 47791 - PHQ-9 Billing: Yes Source: Developed by Drs. Fredi Garvin, Berenice Ortiz, Keaton Son and colleagues, with an educational eren from [email or web address]. Thrive Questionnaire Date Thrive assessed: 11/30/24 I am a: Patient What is your living situation today?: I have a steady place to live Within the past 12 months, did the food you bought not last and you didn't have the money to get more?: Never true Within the past 12 months, did you worry whether your food would run out before you got money to buy more?: Never true Do you have trouble paying for medicines?: No Do you have trouble getting transportation to medical appointments?: No Do you have trouble paying your heating and electricity bill?: No Do you have trouble taking care of your child, family member or friend?: No Do you have trouble with day-to-day activities such as bathing, preparing meals, shopping, managing finances, etc.?: No Are you currently unemployed and looking for a job?: No Are you interested in more education?: No Please select the resources that you would like help with: None Currently or been in a relationship where the following occur: No concerns reported THRIVE Score: 0 AUDIT C Alcohol Use Questionnaire (AUDIT-C) 1. How often do you have a drink containing alcohol?: Monthly or less 2. How many drinks containing alcohol do you have on a typical day when you are drinking?: 1 or 2 3. How often do you have six or more drinks on one occasion?: Never Total Score: 1 Score Reviewed/Action Taken: Yes BRANDEN-7 AMB Questionnaire BRANDEN-7 Date BRANDEN - 7 assessed: 11/30/24 Feeling nervous, anxious, or on edge: 0 = Not at all Not being able to stop or control worryin = Not at all Worrying too much about different things: 0 = Not at all Trouble relaxin = Not at all Being so restless that it is hard to sit still: 0 = Not at all Becoming easily annoyed or irritable: 0 = Not at all Feeling afraid as if something awful might happen: 0 = Not at all Total BRANDEN-7 score (0-4 normal; 5-9 mild; 10-14 moderate; 15-21 severe): 0 Source: Developed by Drs. Fredi Garvin, Berenice Ortiz, Keaton Son and colleagues, with an educational eren from [email or web address]. Review of Systems Const Denies chills, Reports fatigue (mild), Denies fever(s) and Denies headache(s) ENT Denies dysphagia, Denies dizziness, Denies otalgia, Denies headache(s), Denies neck pain, Denies odynophagia and Denies sore throat Card Denies chest pain, Denies rapid heart rate, Denies irregular heart rhythm, Denies palpitations and Denies dyspnea Resp Reports chest congestion (mild), Reports cough (occasional; non-productive), Denies dyspnea and Denies wheezing GI Denies abdominal pain, Denies constipation, Denies dysphagia, Denies heartburn, Denies diarrhea, Denies nausea, Denies odynophagia and Denies vomiting Denies difficulty urinating, Denies dysuria and Denies urinary frequency Musc Denies back pain, Denies arthralgias and Denies neck pain Skin/Breast Denies rash Neuro Denies dizziness, Denies headache(s) and Denies paresthesias Endo Reports fatigue (mild) and Denies palpitations Aller/Immun Denies wheezing Physical exam (Primary Care) Vital Signs: Last Vital Signs Pulse 63 11/30/24 08:59 BP 128/84 11/30/24 08:59 Pulse Ox 95 11/30/24 08:59 Oxygen Delivery Method Room Air 11/30/24 08:59 BMI result Body Mass Index 31.3 Tobacco/Smoking Status: Tobacco use Status Tobacco use date assessed 11/30/24 11/30/24 09:03 Patient Tobacco Use Status Current everyday Tobacco 11/30/24 09:03 Tobacco use type Cigarette 11/30/24 09:03 e-Cigarette/Vaping Use Never Used 11/30/24 09:03 PHQ-9: PHQ-9 Score PHQ-9: Total score 0 11/30/24 09:51 Depression Screening Interpretation: Positive Depression Screening Follow-up: Existing condition and In treatment Thrive Assessment: Date of Thrive Assessment Date Thrive assessed 11/30/24 11/30/24 09:03 Currently or been in a relationship where the following occur: No concerns reported Const General: no acute distress and alert HENMT Ears: TM's normal bilaterally and EAC's normal Throat: Yes posterior oropharynx normal and Yes tonsils normal (no TP congestion) Neck Neck: Yes supple and No lymphadenopathy Thyroid: Thyroid normal Resp Auscultation: no crackles, no rales, rhonchi (occasional) lower bilaterally and no wheezes Cardio Rate: regular rate Rhythm: regular rhythm Heart sounds: no murmurs GI Palpation (GI): Soft to palpation and nontender Auscultation: normal bowel sounds General: Yes no CVA tenderness Back/Spine/Pelvis Back: no CVA tenderness Thoracic/Lumbar Spine: No lumbar spinal tenderness Skin Rashes: no rashes Extrem Other: right hand is currently still in bandages - s/p hand surgery a couple of days ago - had carpal tunnel release and trigger finger(s) release done General: Yes no clubbing, cyanosis or edema Results Reviewed Results Reviewed: Laboratory Tests 11/29/24 08:55 Sodium 135 Potassium 3.6 Creatinine 0.74 Estimated GFR > 60 Fasting Glucose 94 Hemoglobin A1c % 4.9 Calcium 8.9 AST 105 H ALT 163 H Triglycerides 169 H Cholesterol 161 LDL Cholesterol, Calc 95 HDL Cholesterol 33 L 25-OH Vitamin D Total 31.1 TSH 10.03 H Free T4 1.13 Coding Level of Care Code Est Pt Level 4 (98670) Diagnoses Elevated LFTs R79.89 Viral upper respiratory tract infection J06.9 Benign essential hypertension I10 Supraventricular tachycardia I47.1 Mixed hyperlipidemia E78.2 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 E06.3 Impaired fasting glucose R73.01 Arthralgia, unspecified joint M25.50 Joint pain location: unspecified BPH w urinary obs/LUTS N40.1; N13.8 Anxiety F41.9 Episode of recurrent major depressive disorder, unspecified depression episode severity F33.9 Depression Type: major depressive disorder Major depression recurrence: recurrent Active/Remission status: currently active Major depression episode severity: unspecified Obesity (BMI 30-39.9) E66.9 Additional Codes PHQ-9 - 51643 - PHQ-9 Billing: Yes ([id number]) Assessment & Plan Assessment & Plan (1) Elevated LFTs: Code(s): R79.89 - Other specified abnormal findings of blood chemistry Category: Medical Plan: Have advised patient that his LFTs have increased significantly on his recent labs, likely due to his recent bout with an unnamed viral respiratory infection Will still send him for some additional labs ARACELI for further evaluation, to include a hepatitis profile Will also send him for a repeat abdominal US for further evaluation (2) Viral upper respiratory tract infection: Code(s): J06.9 - Acute upper respiratory infection, unspecified Category: Medical Plan: This appears to be resolving Patient states that he is just finishing up his oral Prednisone and continues to use his Albuterol inhaler PRN Will try to get a copy of his hospital records from [facility] up in [place], [place] for review and documentation (3) Benign essential hypertension: Code(s): I10 - Essential (primary) hypertension Category: Medical Plan: Reinforced low sodium diet - goal is systolic BP of 120 mm or less Continue Lisinopril 5 mg QD He is also on Verapamil 80 mg TID for his SVT - this helps with his BP as well (4) Supraventricular tachycardia: Code(s): I47.1 - Supraventricular tachycardia Category: Medical Plan: Patient states that he's had no recurrence of symptoms since his last visit last year Continue Verapamil 80 mg TID Follow up with cardiology as scheduled (5) Mixed hyperlipidemia: Code(s): E78.2 - Mixed hyperlipidemia Category: Medical Plan: Results of his labs done a few days ago reviewed and discussed with patient His serum triglycerides have increased slightly from previous and is now at 169 mg/dl; LDL cholesterol is at 95 mg/dl Reinforced low cholesterol diet Continue Fish Oil capsules 1000 mg once a day and Gemfibrozil 600 mg QD (was experiencing a lot of muscle cramps when he was on Tricor a few years ago) Will continue to hold off on starting him on statins for now, especially since his LFTs have gone up again lately Will recheck his labs and fasting lipids in 4 months for follow up (6) 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: Code(s): E06.3 - Autoimmune thyroiditis Category: Medical Plan: His serum TSH has gone up further but his free T4 remained normal on his recent labs Have advised patient that his recent bout with a viral respiratory infection likely triggered his autoimmune thyroiditis but as his free T4 level remains normal and he is clinically euthyroid, will continue him on Levothyroxine 175 mcg QD for now Will recheck his TFTs in 4 months (7) Impaired fasting glucose: Code(s): R73.01 - Impaired fasting glucose Category: Medical Plan: His HgbA1c remained normal at 4.9% on his recent labs; was previously at 5.0% a couple of years ago Reinforced low calorie/low carb diet, exercise as tolerated (8) Arthralgia: Code(s): M25.50 - Pain in unspecified joint Category: Medical Qualifiers: Joint pain location: unspecified Qualified Code(s): M25.50 - Pain in unspecified joint Plan: His previous labs for inflammatory joint diseases have all come back negative so his joint pains are likely due to osteoarthritis instead He can continue with OTC Tylenol or Ibuprofen PRN for symptomatic relief and his Percocet 5-325 mg PRN for more severe pain (9) BPH w urinary obs/LUTS: Code(s): N40.1 - Benign prostatic hyperplasia with lower urinary tract symptoms; N13.8 - Other obstructive and reflux uropathy Category: Medical Plan: S/P multiple prostate Bxs with Dr. Estes at [facility] over the past few years - he is happy that his biopsies have all come back negative for malignancy States that all of his past imaging studies (MRI, US) were also negative His last PSA came back at 13.16 in June 2024, which is slightly lower than previous Continue Finasteride 5 mg QD and Tadalafil 5 mg QD Follow up with urology as scheduled (10) Anxiety: Code(s): F41.9 - Anxiety disorder, unspecified Category: Medical Plan: Continue Citalopram 20 mg QD (11) Depression: Code(s): F32.A - Depression, unspecified Category: Medical Qualifiers: Depression Type: major depressive disorder Major depression recurrence: recurrent Active/Remission status: currently active Major depression episode severity: unspecified Qualified Code(s): F33.9 - Major depressive disorder, recurrent, unspecified Plan: Continue Citalopram 20 mg QD Follow up with psychiatry as scheduled (12) Obesity (BMI 30-39.9): Code(s): E66.9 - Obesity, unspecified Category: Medical Plan: Reinforced diet/exercise as tolerated/lose weight Plan Follow up in 4 months Orders: Orders Hepatitis A,B,C Profile Today R7. - Other specified abnormal findings of blood chemistry CMV DNA PCR Qn Today R7. - Other specified abnormal findings of blood chemistry Gamma Glutamyl Transpeptidase Today R7. - Other specified abnormal findings of blood chemistry Erythrocyte Sedimentation Rate Today R7. - Other specified abnormal findings of blood chemistry US abdomen complete Today R7. - Other specified abnormal findings of blood chemistry Comprehensive [place]. Panel Fast 4 Months E78.00 - Pure hypercholesterolemia, unspecified Free T4 (Free Thyroxine) 4 Months E03.9 - Hypothyroidism, unspecified Thyroid Peroxidase Antibodies Today R7. - Other specified abnormal findings of blood chemistry Complete Blood Count Auto Diff Today D64.9 - Anemia, unspecified, R79.89 - Other specified abnormal findings of blood chemistry C Reactive Protein Today R79. - Other specified abnormal findings of blood chemistry Thyroid Stimulating Hormone 4 Months E03.9 - Hypothyroidism, unspecified Complete Blood Count Auto Diff 4 Months D64.9 - Anemia, unspecified Lipid Panel 4 Months E78.00 - Pure hypercholesterolemia, unspecified
== END 2024-11-30 09:40 | disposition home or self-care (01) ==
PROVIDERS: PCP Internal Medicine; Visit Provider Internal Medicine
DX: I47.10 Supraventricular tachycardia, unspecified (principal); F33.9 Major depressive disorder, recurrent, unspecified; E66.9 Obesity, unspecified; Z68.31 Body mass index [BMI] 31.0-31.9, adult; R79.89 Other specified abnormal findings of blood chemistry; J06.9 Acute upper respiratory infection, unspecified; I10 Essential (primary) hypertension; E78.2 Mixed hyperlipidemia; E06.3 Autoimmune thyroiditis; R73.01 Impaired fasting glucose; M25.50 Pain in unspecified joint; N40.1 Benign prostatic hyperplasia with lower urinary tract symptoms

== ENCOUNTER 2024-11-30 08:57 | Outpatient (REF) | payer BC, SELFPAY ==
[2024-11-30 10:08] LABS: MANUAL DIFF FLAG NO
[2024-11-30 10:57] LABS: Basophils Absolute Auto 0.1 X10*3/uL (0.0-0.2); Basophils Percent Auto 0.9 % (0-2); Eosinophils Absolute Auto 0.3 X10*3/uL (0.0-0.4); Eosinophils Percent Auto 2.7 % (0-4); Hematocrit 47.8 % (42.0-52.0); Hemoglobin 16.6 g/dl (14.0-18.0); Imm Gran Abs Auto 0.12 X10*3/uL (0.00-0.03); Lymphocytes Absolute Auto 2.2 X10*3/uL (1.2-4.9); Lymphocytes Percent Auto 17.6 % (20-40); Mean Corpuscular HGB Conc 34.7 g/dl (31.0-36.0); Mean Corpuscular Hemoglobin 34.7 pg (27.0-33.0); Mean Platelet Volume 10.1 fL (9.4-12.4); Monocytes Absolute Auto 1.3 X10*3/uL (0.1-1.2); Monocytes Percent Auto 10.6 % (2-11); Neutrophils Absolute Auto 8.3 x10*3/uL (2.0-8.3); Neutrophils Percent Auto 67.2 % (45-73); Platelet Count 165 X10*3/uL (160-400); Red Blood Count 4.78 X10*6/uL (4.60-5.80); Red Cell Distribution Width 11.9 % (11.0-16.0); White Blood Count 12.3 X10*3/uL (4.8-10.8)
[2024-11-30 11:16] LABS: C Reactive Protein 0.36 mg/dL (< or = 0.50); Gamma Glutamyl Transpeptidase 477 U/L (11-51)
[2024-11-30 11:36] LABS: Erythrocyte Sedimentation Rate 2 MM/HR (0-15)
[2024-11-30 12:07] LABS: HBS Num1 > 1000.00 mIU/mL (0-7.99); HBc Num1 0.07 S/CO (0.00-0.79); HBsAGNum1 0.39 S/CO (0.00-0.99); Hepatitis A Antibody IgM 0.15 Index (0-0.79); Hepatitis B Core Antibody Nonreactive (Nonreactive); Hepatitis B Surface Antigen Negative (Negative); ~HepC Num1 0.05 S/CO (0.00-0.79); ~Hepatitis A Antibody IgM Nonreactive (Nonreactive); ~Hepatitis B Surface Antibody REACTIVE (Nonreactive); ~Hepatitis C Antibody Nonreactive (Nonreactive)
[2024-12-01 09:29] LABS: Thyroid Peroxidase Antibodies 538 IU/mL (<9)
[2024-12-01 15:49] LABS: CMV DNA PCR Qn Source BLOOD; CMV DNA Qn PCR NOT DETECTED Log IU/mL (NOT DETECTED); CMV DNA Qn Real Time PCR NOT DETECTED (NOT DETECTED)
== END 2024-11-30 08:58 | disposition home or self-care (01) ==
LOC: HO.LAB 08:57
PROVIDERS: PCP Internal Medicine; Visit Provider Internal Medicine
DX: E78.00 Pure hypercholesterolemia, unspecified (principal); R79.89 Other specified abnormal findings of blood chemistry; D64.9 Anemia, unspecified; J06.9 Acute upper respiratory infection, unspecified; I10 Essential (primary) hypertension; I47.10 Supraventricular tachycardia, unspecified; E78.2 Mixed hyperlipidemia; E66.3 Overweight; R73.01 Impaired fasting glucose
CPT/HCPCS: 36415; 82977; 85025; 85652; 86140; 86376; 86704; 86706; 86709; 86803; 87340; 87497; 96127

== ENCOUNTER 2024-12-21 08:46 | Outpatient (REF) | payer BC, SELFPAY ==
[2024-12-21 11:27] LABS: Prostate Specific Antigen 6.44 ng/mL (<0.05-4.0)
== END 2024-12-21 08:47 | disposition home or self-care (01) ==
LOC: HO.10HDL 08:46
PROVIDERS: Visit Provider Urology
DX: R97.20 Elevated prostate specific antigen [PSA] (principal); Z12.5 Encounter for screening for malignant neoplasm of prostate
CPT/HCPCS: 36415; 84153

== ENCOUNTER 2024-12-21 14:56 | Outpatient (AMB) | payer BC, SELFPAY ==
--- NOTE | 2024-12-21 14:57 | A.OFFPC_ITS ---
Vital Signs 12/21/24 14:58 Height 5 ft 10 in Weight 218 lb 8 oz BMI 31.3 BP 158/92 H Blood Pressure Location Lt brachial Position Sitting Respiration 18 Pulse 64 Pulse Source Pulse Oximeter Temp 99.2 F Temp Source Oral Pulse Oximetry (%) 96 Oxygen Delivery Method Room Air Intake Visit Reasons: Chest Congestion Open[employer] Cloud Consulting Architect Required: No Accompanied by: Self / Same As Patient Allergies sulfamethoxazole [From Bactrim] Allergy (Intermediate, Verified 12/21/24 15:13) mucosal and hand rash/scaling trimethoprim [From Bactrim] Allergy (Intermediate, Verified 12/21/24 15:13) mucosal and hand rash/scaling amoxicillin Allergy (Unknown, Verified 12/21/24 15:13) Unknown fenofibrate [From TRICOR] Allergy (Unknown, Verified 12/21/24 15:13) UNKNOWN Medication List - Last Reconciled 12/21/24 by RACQUEL Briggs albuterol sulfate 90 mcg/actuation 2 puffs PO Q6H PRN ascorbic acid (vitamin C) 500 mg PO DAILY citalopram 20 mg PO DAILY 90 days finasteride 5 mg PO DAILY 90 days levothyroxine 175 mcg PO DAILY 60 days lisinopril 5 mg PO DAILY 90 days multivitamin with minerals (Men's One Daily tablet) 1 tab PO DAILY omega-3 fatty acids (Fish Oil Concentrate) 1,000 mg PO DAILY pentoxifylline ER 400 mg PO BID 90 days tadalafil 5 mg PO DAILY 90 days verapamil 80 mg PO TID 90 days vitamin E (dl, acetate) 450 mg PO DAILY 90 days Tobacco use date assessed: 11/30/24 Dental Screening Dental Screen Date: 12/21/24 Did you have a dental visit in the last 12 months?: Yes Did you have a dental problem in the last 6 months where you did not have access to dental care?: No Was dental information given to patient?: Patient has dentist HPI Chest Congestion HPI Details Patient is a 54-year-old male presenting for ongoing chest congestion Reports that 3 weeks ago he went to the hospital in [place] for difficulty breathing, his pox 84% and bp 215/111. Reports that they thought that he was having a viral illness. He was treated with duonebs and steroids. He was given an albuterol rescue inhaler due to his wheezing Reports that he started feeling better, but his chest congestion, productive cough and chest tightness restarted. Patient reports that [facility] [place] [facility]. He is questioning mole toxicity, he has no lung disease, however, his sister has severe asthma but she is the only one in the family with this condition. Reports that he has been using the rescue inhaler for wheezing and sob to the point he is almost out of it. Reports that he has environmental allergies. He reports that prior he was coughing up yellow secretions and now he is coughing up brownish color with a strong odor. Reports that his viral panel in the hospital was negative. On exam: Scattered wheezing throughout and diminished right lower lobe. We will send the patient for an urgent chest x-ray. We will also treat the patient prophylactically with doxycycline 100 mg b.i.d. 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 Trigger finger, right middle finger Mixed hyperlipidemia Impaired fasting glucose Depression Obesity (BMI 30-39.9) Anxiety Hypertriglyceridemia Supraventricular tachycardia Acquired hypothyroidism Benign essential hypertension Pleuritic chest pain Pneumonia Sepsis HTN (hypertension) BPH w urinary obs/LUTS Hepatic steatosis Surgical History S/P trigger finger release (~08/03/23) History of carpal tunnel release (~08/03/23) H/O right knee surgery Hx of meniscectomy of right knee History of cystoscopy History of colonoscopy History of back surgery Family History Father CVD (cardiovascular disease) Heart attack Rheumatoid arthritis Mother Dementia Social History Household Members: Significant Other Housing: House Do you presently have visiting nurse or other home services: No Alcohol intake: current Alcohol intake frequency: a few times a week Alcohol type: wine Comment: pt states tylenol will help him better Patient Tobacco Use Status: Current everyday Tobacco user Tobacco use type: Cigarette Cigarettes Per Day: 3 Years Smoked: when I drink Packs per year/per ci.00 e-Cigarette/Vaping Use: Never Used Second Hand Smoke Exposure: No Advance Directives Date on File: 02/23/19 service: No Current occupational status: employed 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 Fredi Garvin, Berenice Ortiz, Keaton Son and colleagues, with an educational eren from [employer]. Review of Systems Const Details: Denies chills, Denies fatigue, Denies fever(s), Denies headache(s) and Denies weakness HEENT Denies change in vision, Denies dizziness, Denies headache(s), Denies hearing loss, Denies nasal congestion, Denies sinus pain, Denies sinus pressure and Denies sore throat Card Denies chest pain, Denies lightheadedness, +dyspnea, Denies other (palpitations) Resp +cough productive cough, +dyspnea, chest congestion and wheezing GI Denies abdominal pain, Denies melena, Denies hematochezia, Denies change in bowel habits, Denies dyspepsia and Denies nausea Denies hematuria and Denies dysuria Physical exam (Primary Care) Vital Signs: Last Vital Signs Temp 99.2 F 12/21/24 14:58 Pulse 64 12/21/24 14:58 Resp 18 12/21/24 14:58 BP 158/92 H 12/21/24 14:58 Pulse Ox 96 12/21/24 14:58 Oxygen Delivery Method Room Air 12/21/24 14:58 BMI result Body Mass Index 31.3 Tobacco/Smoking Status: Tobacco use Status Tobacco use date assessed 11/30/24 12/21/24 15:11 Patient Tobacco Use Status Current everyday Tobacco 12/21/24 15:11 Tobacco use type Cigarette 12/21/24 15:11 e-Cigarette/Vaping Use Never Used 12/21/24 15:11 Thrive Assessment: Date of Thrive Assessment Date Thrive assessed 11/30/24 12/21/24 15:11 Const Other: General: no acute distress, well developed, alert and awake Nutritional Appearance: well nourished Orientation/consciousness: patient oriented x3 HENMT Head: Yes normocephalic and Yes atraumatic Ears: hearing grossly normal bilaterally and TM's normal bilaterally General nose exam: Normal external nose present and alec nares present Mouth: Normal oral and palatal mucosa present and moist mucous membranes Throat: Yes oropharynx normal Eyes Pupils: Equal, round and reactive pupils present and Pupil accommodation reflex normal EOM: EOMs intact bilaterally Neck Neck: Yes normal visual inspection, Yes no lymphadenopathy and Yes trachea midline Thyroid: Thyroid normal Lymphatic: no lymphadenopathy noted Resp Effort & Inspection: mildly labored respiratory effort Auscultation: wheezes through the lung field, diminished breath sounds in the right lower lobe Cardio Rate: regular rate Rhythm: regular rhythm Heart sounds: S1 normal heart sound present, S2 normal heart sound present, no gallops, no murmurs and no rubs GI Palpation (GI): Abdomen is soft and nontender Auscultation: normal bowel sounds General: Yes no CVA tenderness Coding Level of Care Code Est Pt Level 4 (47776) Diagnoses Pneumonia of right lower lobe due to infectious organism J18.9 Laterality: right Lung location: lower lobe of lung Pneumonia type: due to unspecified organism Moderate persistent asthma with acute exacerbation J45.41 Asthma severity: moderate Asthma persistence: persistent Asthma complication type: with acute exacerbation Chest tightness R07.89 Subacute cough R05.2 Time Spent (min) 37 Assessment & Plan Assessment & Plan (1) Pneumonia: Code(s): J18.9 - Pneumonia, unspecified organism Category: Medical Qualifiers: Laterality: right Lung location: lower lobe of lung Pneumonia type: due to unspecified organism Qualified Code(s): J18.9 - Pneumonia, unspecified organism Plan: The patient has diminished breath sound in right lower lobe. Will treat prophylactically with Doxycycline 100mg BID x 10 days for pneumonia and the send the patient for an urgent chest x-ray (2) Asthma: Code(s): J45.909 - Unspecified asthma, uncomplicated Category: Medical Qualifiers: Asthma severity: moderate Asthma persistence: persistent Asthma complication type: with acute exacerbation Qualified Code(s): J45.41 - Moderate persistent asthma with (acute) exacerbation Plan: The patient was given and rescue inhaler 3 weeks ago and it is almost finished. The inhaler was refilled, the patient was also ordered Advair Diskus inhaler; he was also placed on prednisone taper. A pulmonology referral was also placed. (3) Chest tightness: Code(s): R07.89 - Other chest pain Category: Medical Plan: Prednisone taper ordered (4) Subacute cough: Code(s): R05.2 - Subacute cough Category: Medical Plan: Productive cough started 3 weeks ago, the patient is using mucinex otc, encouraged fluids intake Orders: Orders Resp Allergy Profile Region I Today R05.3 - Chronic cough AMB Nebulizer Treatment Today R07.89 - Other chest pain XR chest 2V Today J18.9 - Pneumonia, unspecified organism, R07.89 - Other chest pain Aspergillus Ag EIA Today R05.3 - Chronic cough Medications: New albuterol sulfate 2.5 mg (3 mL) inhalation ONCE 3 mL 0RF R07.89 - Other chest pain ipratropium-albuterol 0.5 mg-3 mg(2.5 mg base)/3 mL 3 mL inhalation ONCE 3 mL 0RF R07.89 - Other chest pain doxycycline hyclate 100 mg PO BID 10 days 20 caps 0RF J18.9 - Pneumonia, unspecified organism prednisone see taper instructions take 4 tabs x2 day, take 3 tabs x2 day, take 2 tabs x2 day, take 1 tab x2 day =20 over 8 days 10 mg PO DIRECTED 20 tabs 0RF R07.89 - Other chest pain fluticasone propion-salmeterol 100-50 mcg/dose (Advair Diskus) 1 inh inhalation BID 60 ea 0RF J45.909 - Unspecified asthma, uncomplicated, R07.89 - Other chest pain Refilled albuterol sulfate 90 mcg/actuation 2 puffs PO Q6H PRN 8.5 grams 3RF shortness of breath or wheezing J18.9 - Pneumonia, unspecified organism, R06.00 - Dyspnea, unspecified
[2024-12-21 14:58] VITALS: BP 158/92; PULSE 64; RESP 18; TEMP 37.3; O2SAT 96; BMI 31.3
== END 2024-12-21 15:50 | disposition home or self-care (01) ==
PROVIDERS: PCP Internal Medicine
DX: J18.9 Pneumonia, unspecified organism (principal); J45.41 Moderate persistent asthma with (acute) exacerbation; R07.89 Other chest pain; R05.2 Subacute cough

== ENCOUNTER 2024-12-22 08:41 | Outpatient (AMB) | payer BC, SELFPAY ==
--- NOTE | 2024-12-22 08:30 | MHC.OFFVIS ---
Intake Visit Reasons: 6m/PSA(psa?) Intake Note: Patient is present for 6M/PSA Urology Medication:FINASTERDIE,TADALAFIL,VITAMIN E Antibiotic Allergy:SULFA,BACTRIM,AMOXICILLIN Blood Thinner:NONE Peace Officer Required: No Allergies sulfamethoxazole [From Bactrim] Allergy (Intermediate, Verified 12/22/24 08:53) mucosal and hand rash/scaling trimethoprim [From Bactrim] Allergy (Intermediate, Verified 12/22/24 08:53) mucosal and hand rash/scaling amoxicillin Allergy (Unknown, Verified 12/22/24 08:53) Unknown fenofibrate [From TRICOR] Allergy (Unknown, Verified 12/22/24 08:53) UNKNOWN HPI Comments Details: Lorenzo TAN is a very pleasant male. He is a patient of Dr. Stewart. He is seen for the following urologic conditions. - elevated PSA - Peyrodorothea's with erectile dysfunction PSA continues to fall Currently the lowest I have seen Has been on prednisone which have helped Discussed Peyronie's progression Information provided regarding conservative therapy with penile pump, combination antioxidant medications Mild improvement Functional with rightward deviation Continue medications PSA 11/10 18.5, 12/12 17, 07/12 13, 01/10 6.4 03/10 MRI ultrasound fusion biopsy - chronic inflammation no evidence of prostate cancer - 55gm Erectile dysfunction - daily Cialis Six-month follow-up Elevated PSA/Abnormal OTIS: 08/06 MRI - left posteromedial mid gland 0.7cm lesion PiRADS 3 ExoDx - 08/08 Low Risk score 5 and 32 (variability) Prior biopsy complicated with post procedure prostatitis He presents for further evaluation of elevated PSA. Laboratory investigations include 07/07 15 - 12/07 16, 05/08 10.2, 05/09 13, 11/10 18 on finasteride, 06/10 15, 12/12 17 Imaging investigations include - 08/06 MRI 55gm left correctional substance abuse counselor/lateral midgland 7 mm PiRADS 3 - 04/09 MRI left mid gland 1.2 cm lesion now PI-RADS 4 - 55gm prostate Individualized Prostate Cancer Risk Calculator >10% high risk. A TRUS biopsy has been performed and is negative January 2019, 03/10 ultrasound fusion biopsy negative PSA at biopsy 15 Overall symptoms are mild. 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 Trigger finger, right middle finger Mixed hyperlipidemia Impaired fasting glucose Depression Obesity (BMI 30-39.9) Anxiety Hypertriglyceridemia Supraventricular tachycardia Acquired hypothyroidism Benign essential hypertension Pleuritic chest pain Pneumonia Sepsis HTN (hypertension) BPH w urinary obs/LUTS Hepatic steatosis Surgical History S/P trigger finger release (~08/03/23) History of carpal tunnel release (~08/03/23) H/O right knee surgery Hx of meniscectomy of right knee History of cystoscopy History of colonoscopy History of back surgery Family History Father CVD (cardiovascular disease) Heart attack Rheumatoid arthritis Mother Dementia Social History Household Members: Significant Other Housing: House Do you presently have visiting nurse or other home services: No Alcohol intake: current Alcohol intake frequency: a few times a week Alcohol type: wine Comment: pt states tylenol will help him better Patient Tobacco Use Status: Current everyday Tobacco user Tobacco use type: Cigarette Cigarettes Per Day: 3 Years Smoked: when I drink e-Cigarette/Vaping Use: Never Used Second Hand Smoke Exposure: No Advance Directives Date on File: 02/23/19 service: No Current occupational status: employed 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 Cognitive needs: No Hearing needs: No Vision needs: No Review of Systems Const Denies chills and Denies fever(s) Card Reports no additional complaints and Denies syncope Resp Denies cough GI Denies abdominal pain and Denies heartburn Reports as per HPI and Denies change in libido Neuro Denies syncope Psych Denies change in libido Endo Denies change in libido Physical Exam Const General: cooperative, healthy appearing, comfortable and no acute distress Orientation/consciousness: patient oriented x3 HEENT Face and sinus: Yes normal facial exam Mouth: moist mucous membranes Neck Neck: Yes normal visual inspection, Yes full ROM and Yes trachea midline Chest Chest palpation & inspection: normal inspection of the chest Resp Effort & Inspection: normal respiratory effort, able to speak in complete sentences and no respiratory distress GI Inspection: Yes normal to inspection Back/Spine/Pelvis Cervical Spine: normal cervical lordosis Thoracic/Lumbar Spine: thoracic and lumbar spine normal to inspection Skin General skin exam: no rashes or lesions noted Neuro General: patient oriented x3, gait normal, tone normal and moves all extremities Extrem General: Yes normal to inspection and Yes capillary refill normal Assessment & Plan Assessment & Plan (1) Elevated PSA: Comment: High PSA with prior negative biopsy Code(s): R97.20 - Elevated prostate specific antigen [PSA] Category: Medical (2) BPH w urinary obs/LUTS: Code(s): N40.1 - Benign prostatic hyperplasia with lower urinary tract symptoms; N13.8 - Other obstructive and reflux uropathy Category: Medical (3) Peyronie's disease: Code(s): N48.6 - Induration penis plastica Category: Medical Plan Six-month follow-up PSA Prescriptions refilled Orders: Orders PSA,Total (Free>4and<10) 6 Months R97.20 - Elevated prostate specific antigen [PSA] Patient Instructions: This note is constructed using voice recognition software. While every effort has been made to ensure accuracy technical sales manager errors may have been included. Imaging studies, laboratory and physical exam results were discussed and reviewed in detail. No major barriers to patient understanding were identified. An opportunity to ask questions regarding the treatment plan was provided. All questions were answered. The patient expressed understanding and agreement with the above treatment plan. The patient is aware they should contact our office by phone for worsening of their current condition or the appearance of new urologic symptoms. Compliance is encouraged with any medications and followup testing that is ordered. It is a privilege to participate in the urologic care of your patient. If you have any questions or concerns regarding treatment for the above conditions, or other urologic issues, please do not hesitate to contact me. The office telephone contact is [phone]. Sincerely, Dr Tae Estes MD, [facility] - Urology Compassionate Specialist Care for the Genitourinary System Coding Level of Care Code Est Pt Level 3 (51454) Diagnoses Elevated PSA R97.20 BPH w urinary obs/LUTS N40.1; N13.8 Peyronie's disease N48.6
== END 2024-12-22 09:30 | disposition home or self-care (01) ==
PROVIDERS: PCP Internal Medicine; Visit Provider Urology
DX: R97.20 Elevated prostate specific antigen [PSA] (principal); N40.1 Benign prostatic hyperplasia with lower urinary tract symptoms; N13.8 Other obstructive and reflux uropathy; N48.6 Induration penis plastica
CPT/HCPCS: 99213

== ENCOUNTER 2024-12-27 07:52 | Outpatient (REF) | payer BC, SELFPAY ==
--- NOTE | ~2024-12-27 | US_ITS ---
EXAMINATION: US ABDOMEN COMPLETE CLINICAL INFORMATION: Abnormal findings on blood chemistry.. COMPARISON: Ultrasound dated January 16, 2021 and April 04, 2020. TECHNIQUE: Real-time imaging of the abdominal viscera using grayscale and color Doppler technique.. FINDINGS: PANCREAS: No peripancreatic fluid collections. ABDOMINAL AORTA: The proximal, mid, and distal segments are normal in caliber. INFERIOR VENA CAVA: Visualized portions are normal. LIVER: Liver measures 20 cm. Increased echotexture. No gross nodular surface. No solid or cystic lesion detected by the human performance technologist. No intrahepatic biliary ductal dilatation. GALLBLADDER: No pericholecystic fluid collection or gallbladder wall thickening. Intraluminal round less than 5 mm hyperechoic lesions with posterior shadowing. COMMON BILE DUCT: 2 mm. RIGHT KIDNEY: 14 cm. Normal echotexture. Normal renal cortical thickness. No hydronephrosis. No solid or cystic lesion. Normal flow on color Doppler interrogation of the renal hilum. LEFT KIDNEY: 12 cm. Normal echotexture. Normal renal cortical thickness. No hydronephrosis. There is a 1.5 cm exophytic anechoic lesion without nodular component or flow on color Doppler interrogation, lower pole. There is a 2.4 x 1.8 cm lobulated anechoic lesion in the upper pole without flow on color Doppler interrogation or nodular component. There are a few, less than 5 mm hyperechoic lesions in the midportion. There is flow on color Doppler interrogation of the renal hilum. SPLEEN: 14 cm.. FREE FLUID: None. US/US abdomen complete IMPRESSION: Hepatosplenomegaly. Hepatic steatosis. Hepatocellular disease cannot be excluded. Cholelithiasis. Nonobstructing nephrolithiasis, left kidney. Cystic lesions, left kidney. No ascites. Electronically signed by: Akash Buchanan MD 12/27/2024 09:26 AM EDT
== END 2024-12-27 07:53 | disposition home or self-care (01) ==
LOC: HO.US 07:52
PROVIDERS: PCP Internal Medicine; Visit Provider Internal Medicine
DX: R79.89 Other specified abnormal findings of blood chemistry (principal)
CPT/HCPCS: 76700

== ENCOUNTER → 2024-12-27 07:54 | Outpatient (BNV) | payer BC, SELFPAY | PROVIDERS: PCP Internal Medicine; Visit Provider Radiology Diagnostic Radiology | DX: R16.2 Hepatomegaly with splenomegaly, not elsewhere classified (principal); K76.0 Fatty (change of) liver, not elsewhere classified; K80.20 Calculus of gallbladder without cholecystitis without obstruction; N20.0 Calculus of kidney | CPT/HCPCS: 76700 ==

== ENCOUNTER 2025-02-14 13:36 | Outpatient (AMB) | payer BC, SELFPAY ==
--- NOTE | 2025-02-14 13:43 | A.OFFVIS_ITS ---
Vital Signs 02/14/25 13:44 Height 5 ft 10 in Weight 217 lb BMI 31.1 BP 140/82 H Blood Pressure Location Lt brachial Position Sitting Pulse 76 Pulse Source Pulse Oximeter Pulse Oximetry (%) 96 Oxygen Delivery Method Room Air Intake Visit Reasons: Cough Intake Note: pt is here as a new patient for hospital follow up from [place] for short of breath, arrived with O2 at 84%. and today he states he has short of breath on exertion, heavy mucous in the am (when started very yellow with metallic taste) and now not so much. Hx of mold exposure, no hx of covid. 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 Allergies sulfamethoxazole [From Bactrim] Allergy (Intermediate, Verified 02/14/25 14:31) mucosal and hand rash/scaling trimethoprim [From Bactrim] Allergy (Intermediate, Verified 02/14/25 14:31) mucosal and hand rash/scaling amoxicillin Allergy (Unknown, Verified 02/14/25 14:31) Unknown fenofibrate [From TRICOR] Allergy (Unknown, Verified 02/14/25 14:31) UNKNOWN Medication List - Last Reconciled 02/14/25 by Inessa Sanchez MD albuterol sulfate 90 mcg/actuation 2 puffs PO Q6H PRN ascorbic acid (vitamin C) 500 mg PO DAILY citalopram 20 mg PO DAILY 90 days finasteride 5 mg PO DAILY 90 days fluticasone propion-salmeterol 100-50 mcg/dose (Advair Diskus) 1 inh inhalation BID levothyroxine 175 mcg PO DAILY 60 days lisinopril 5 mg PO DAILY 90 days multivitamin with minerals (Men's One Daily tablet) 1 tab PO DAILY omega-3 fatty acids (Fish Oil Concentrate) 1,000 mg PO DAILY pentoxifylline ER 400 mg PO BID PRN tadalafil 5 mg PO DAILY 90 days verapamil 80 mg PO TID 90 days vitamin E (dl, acetate) 450 mg PO DAILY 90 days Do you need a note to return to daycare/school/sports/work: No HPI HPI Cough: Details: This 54 years old gentleman is being seen for the 1st time for pulmonary evaluation and management. He denies any history of bronchial asthma in childhood or in adult life. However he has had some bouts of cough and chest tightness off and on for a few years, but never required any acute management. He smokes about 3-4 cigarettes a day only on some days when he is driving. He does consume moderate amount of beer, sometimes heavy. He is being treated for mild depression with citalopram 20 mg daily Also being treated for hypothyroidism, mild hypertension, prostatic hypertrophy In November of this year he was ski being in the [facility], and stayed in a cabin for a few days. On 11/30/2024 after he was skiing he started feeling short of breath with tight feeling in the chest and some wheezing. Came to the [facility] and did not get much better so he ended up in the emergency room OF [facility]. When he presented in the emergency room he did have low O2 sat, in mid 80s, and required O2 supplementation. He was treated with Solu-Medrol followed by oral prednisone, albuterol and a course of Z-Jun. His lab work cup was negative for COVID, RSV or influenza ARB. The treating doctors impression was that he had hyperactive airways and due to skiing in the cold weather with mouth breathing, he had acute asthmatic episode. 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 A couple months ago over here he was treated for mild bronchitis and asthma. And again with doxycycline and albuterol inhaler. On day-to-day basis he does experience shortness of breath on walking fast or climbing stairs. 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 Trigger finger, right middle finger Mixed hyperlipidemia Impaired fasting glucose Depression Obesity (BMI 30-39.9) Anxiety Hypertriglyceridemia Supraventricular tachycardia Acquired hypothyroidism Benign essential hypertension Pleuritic chest pain Pneumonia Sepsis HTN (hypertension) BPH w urinary obs/LUTS Hepatic steatosis Surgical History S/P trigger finger release (~08/03/23) History of carpal tunnel release (~08/03/23) H/O right knee surgery Hx of meniscectomy of right knee History of cystoscopy History of colonoscopy History of back surgery Family History Father CVD (cardiovascular disease) Heart attack Rheumatoid arthritis Mother Dementia Social History Household Members: Significant Other Housing: House Do you presently have visiting nurse or other home services: No Alcohol intake: current Alcohol intake frequency: a few times a week Alcohol type: wine Comment: pt states tylenol will help him better Patient Tobacco Use Status: Current everyday Tobacco user Tobacco use type: Cigarette Cigarettes Per Day: 3 Years Smoked: when I drink e-Cigarette/Vaping Use: Never Used Second Hand Smoke Exposure: No Advance Directives Date on File: 02/23/19 service: No Current occupational status: employed 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 Cognitive needs: No Hearing needs: No Vision needs: No Review of Systems Const All systems reviewed & are unremarkable except as noted in HPI and below Eyes Reports no additional complaints ENT Reports no additional complaints Card Denies chest pain, Denies syncope, Denies irregular heart rhythm and Denies leg edema Resp Reports as per HPI GI Reports no additional complaints Reports nocturia and Reports urinary urgency Musc Reports no additional complaints Skin/Breast Reports system reviewed and no additional complaints, except as documented Neuro Reports no additional complaints and Denies syncope Psych Reports depression (Being treated with citalopram) Endo Reports other (Hypothyroidism being treated with levothyroxine) Aller/Immun Reports no additional complaints Physical Exam Vital Signs: Last Vital Signs Pulse 76 02/14/25 13:44 BP 140/82 H 02/14/25 13:44 Pulse Ox 96 02/14/25 13:44 Oxygen Delivery Method Room Air 02/14/25 13:44 BMI result Body Mass Index 31.1 Const General: healthy appearing, comfortable, no acute distress, alert and awake Orientation/consciousness: patient oriented x3 HEENT Head: Yes normal to inspection General nose exam: No nasal polyps present and No nasal discharge present Face and sinus: Yes sinuses nontender Mouth: oropharynx normal Throat: Yes posterior oropharynx normal Eyes General: appearance normal, both eyes and all related structures Neck Neck: Yes normal visual inspection, Yes no lymphadenopathy, Yes trachea midline and Yes no JVD Thyroid: Thyroid normal Chest Chest palpation & inspection: normal inspection of the chest, normal palpation of entire chest wall and no tenderness Resp Other: Percussion note is resonant. Breath. Sounds equal on both sides No audible wheezes crepitations or rhonchi. Cardio Palpation: normal PMI Rate: regular rate Rhythm: regular rhythm Heart sounds: no gallops and no murmurs Peripheral pulses: Peripheral pulses 2+ throughout GI Palpation (GI): Soft to palpation, nontender, No hepatosplenomegaly present and no masses Auscultation: normal bowel sounds Back/Spine/Pelvis Thoracic/Lumbar Spine: thoracic and lumbar spine normal to inspection Skin General skin exam: no rashes or lesions noted Neuro General: patient oriented x3 and no focal motor deficits Cranial nerves: Yes CN's II-XII intact bilaterally Extrem General: Yes normal to inspection, Yes no clubbing, cyanosis or edema and Yes no calf tenderness Psych Appearance: grossly normal and well kempt Speech and movement: Normal speech and movement present Results Reviewed Results Reviewed: Records from [facility] ( 11/30/24 ) are reviewed. CBC = Wbcs 12.1 Eiosin count 6.9 absolute eiosinophil count 0.84 Assessment & Plan Assessment & Plan (1) Asthma: Comment: History is suggestive of hyper reactive airways/ bronchial asthma. Which may be triggered by post infectious hyper responsive airways, or some unknown allergy or hypersensitivity to environmental changes. Presence of eosinophilia , in November 2024 when he ended up in the emergency room, is suggestive of allergic or hypersensitivity syndrome. Code(s): J45.909 - Unspecified asthma, uncomplicated Category: Medical Qualifiers: Asthma severity: moderate Asthma persistence: persistent Asthma complication type: with acute exacerbation Qualified Code(s): J45.41 - Moderate persistent asthma with (acute) exacerbation Plan: Complete pulmonary function test is ordered. CBC with diff and IgE level is ordered. Patient advised to quit smoking completely. For the time being just use albuterol 2 puffs Q 4-6 hours p.r.n.. If after pulmonary function test , diagnosis of bronchial asthma is confirmed then he may need to be started on inhaled steroids. Had thorough discussion with the patient . Orders: Orders Complete Blood Count Auto Diff Today Inessa Sanchez MD J45.41 - Moderate persistent asthma with (acute) exacerbation, R05.3 - Chronic cough Immunoglobulin E Today Inessa Sanchez MD J45.41 - Moderate persistent asthma with (acute) exacerbation, R05.3 - Chronic cough Medications: Changed From pentoxifylline ER administer with meals 400 mg PO BID 90 days 180 tabs 1RF N48.6 - Induration penis plastica To pentoxifylline ER administer with meals 400 mg PO BID PRN N48.6 - Induration penis plastica Tae Estes MD Coding Level of Care Code New Pt Level 4 (96556) Diagnoses Moderate persistent asthma with acute exacerbation J45.41 Asthma severity: moderate Asthma persistence: persistent Asthma complication type: with acute exacerbation
[2025-02-14 13:44] VITALS: BP 140/82; PULSE 76; O2SAT 96; BMI 31.1
== END 2025-02-14 14:45 ==
LOC: HO.HPS 13:36
PROVIDERS: PCP Internal Medicine; Visit Provider Internal Medicine
DX: J45.41 Moderate persistent asthma with (acute) exacerbation (principal)
CPT/HCPCS: 99204

== ENCOUNTER 2025-02-14 13:36 | Outpatient (REF) | payer BC, SELFPAY ==
[2025-02-14 14:40] LABS: MANUAL DIFF FLAG NO
[2025-02-14 14:50] LABS: Basophils Absolute Auto 0.1 X10*3/uL (0.0-0.2); Eosinophils Absolute Auto 0.5 X10*3/uL (0.0-0.4); Hematocrit 45.9 % (42.0-52.0); Hemoglobin 16.2 g/dl (14.0-18.0); Imm Gran Abs Auto 0.03 X10*3/uL (0.00-0.03); Imm Gran Pct Auto 0.3 % (0.0-0.4); Lymphocytes Absolute Auto 2.6 X10*3/uL (1.2-4.9); Lymphocytes Percent Auto 26.1 % (20-40); Mean Corpuscular HGB Conc 35.3 g/dl (31.0-36.0); Mean Corpuscular Hemoglobin 34.2 pg (27.0-33.0); Mean Corpuscular Volume 96.8 fL (80.0-98.0); Mean Platelet Volume 10.4 fL (9.4-12.4); Monocytes Absolute Auto 1.3 X10*3/uL (0.1-1.2); Neutrophils Absolute Auto 5.4 x10*3/uL (2.0-8.3); Neutrophils Percent Auto 54.6 % (45-73); Platelet Count 146 X10*3/uL (160-400); Red Blood Count 4.74 X10*6/uL (4.60-5.80); Red Cell Distribution Width 12.3 % (11.0-16.0); White Blood Count 9.9 X10*3/uL (4.8-10.8)
[2025-02-17 09:05] LABS: Immunoglobulin E 413 kU/L (<OR=114)
== END 2025-02-14 13:37 | disposition home or self-care (01) ==
LOC: HO.LAB 13:36
PROVIDERS: PCP Internal Medicine; Visit Provider Internal Medicine
DX: J45.41 Moderate persistent asthma with (acute) exacerbation (principal); R05.3 Chronic cough
CPT/HCPCS: 36415; 82785; 85025

== ENCOUNTER → 2025-03-07 09:24 | Outpatient (BNVA) | payer BC, SELFPAY | PROVIDERS: PCP Internal Medicine ==

== ENCOUNTER 2025-03-20 09:15 | Outpatient (AMB) | payer BC, SELFPAY ==
--- NOTE | 2025-03-20 10:22 | AM.OFFWIN_ITS ---
Intake Vital Signs 03/20/25 10:25 Weight 215 lb BP 140/80 H Blood Pressure Location Lt brachial Position Sitting Pulse 69 Pulse Source Pulse Oximeter Temp 98.7 F Temp Source Oral Pulse Oximetry (%) 96 Oxygen Delivery Method Room Air Intake Visit Reasons: EP Hives Intake Note: Patient here for rash on necks, he did have a tick bite on right eyelid about 2 weeks ago. Patient Tobacco Use Status: Current everyday Tobacco user Allergies sulfamethoxazole [From Bactrim] Allergy (Intermediate, Verified 03/20/25 10:28) mucosal and hand rash/scaling trimethoprim [From Bactrim] Allergy (Intermediate, Verified 03/20/25 10:28) mucosal and hand rash/scaling amoxicillin Allergy (Unknown, Verified 03/20/25 10:28) Unknown fenofibrate [From TRICOR] Allergy (Unknown, Verified 03/20/25 10:28) UNKNOWN Do you need a note to return to daycare/school/sports/work: No HPI HPI Comments History of Present Illness Details History of Present Illness The patient is a 54-year-old male presenting with hives after a tick bite. Approximately two weeks ago, a tick was attached to his eyelid for more than three hours, removed himself, and subsequently developed a rash on his face over the weekend. He states that he has been having hives all over her cheeks and neck. His father had a history of Lyme disease, increasing his concern about p otential tick-borne illnesses. He has not changed any products such as lotions or detergents. He has no new foods, shampoos, soaps, medications, or recent travel. He experienced slight headaches and facial tingling but no additional significant systemic symptoms. He denies other rashes, CP, SOB, abd pain, n/v/d, joint pain, fever, or chills. Physical Exam General: Cooperative, healthy appearing, comfortable, no acute distress and well developed Orientation: Patient oriented x3 Head: Normal to inspection Face and sinus: Rash present on face Neck: Normal visual inspection and Yes full ROM Respiratory: Normal respiratory effort and able to speak in complete sentences. Clear to auscultation bilaterally Cardiovascular: Regular rate and rhythm. Normal S1 and S2 Skin: Diffuse hives present on face and neck, no other rashes or lesions noted Patient was informed and verbally consented to the use of an ambient scribe for clinic note documentation during this visit. 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 Trigger finger, right middle finger Mixed hyperlipidemia Impaired fasting glucose Depression Obesity (BMI 30-39.9) Anxiety Hypertriglyceridemia Supraventricular tachycardia Acquired hypothyroidism Benign essential hypertension Pleuritic chest pain Pneumonia Sepsis HTN (hypertension) BPH w urinary obs/LUTS Hepatic steatosis Surgical History S/P trigger finger release (~08/03/23) History of carpal tunnel release (~08/03/23) H/O right knee surgery Hx of meniscectomy of right knee History of cystoscopy History of colonoscopy History of back surgery Family History Father CVD (cardiovascular disease) Heart attack Rheumatoid arthritis Mother Dementia Social History Household Members: Significant Other Housing: House Do you presently have visiting nurse or other home services: No Alcohol intake: current Alcohol intake frequency: a few times a week Alcohol type: wine Comment: pt states tylenol will help him better Patient Tobacco Use Status: Current everyday Tobacco user Tobacco use type: Cigarette Cigarettes Per Day: 3 Years Smoked: when I drink e-Cigarette/Vaping Use: Never Used Second Hand Smoke Exposure: No Advance Directives Date on File: 02/23/19 service: No Current occupational status: employed 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 Cognitive needs: No Hearing needs: No Vision needs: No Review of Systems Const All systems reviewed & are unremarkable except as noted in HPI and below Physical Exam Vital Signs: Last Vital Signs Temp 98.7 F 03/20/25 10:25 Pulse 69 03/20/25 10:25 BP 140/80 H 03/20/25 10:25 Pulse Ox 96 03/20/25 10:25 Oxygen Delivery Method Room Air 03/20/25 10:25 Assessment & Plan Assessment & Plan (1) Tick bite: Code(s): W57.XXXA - Bitten or stung by nonvenomous insect and other nonvenomous arthropods, initial encounter Plan Most likely allergic reaction vs lyme vs contact dermatitis Plan Prophylactic treatment with doxycycline has been initiated considering the history of tick exposure and family history of Lyme disease. A Medrol Dosepak has been prescribed for symptom management of the hives. Lyme disease and bacterial infections will be assessed through laboratory tests, including a Lyme titer. Follow-up will be conducted based on laboratory results availability, ensuring timely intervention if tick-borne disease is confirmed. Orders: Orders Tick-borne Disease Molecular Today S30.860A - Insect bite (nonvenomous) of lower back and pelvis, initial encounter, W57.XXXA - Bitten or stung by nonvenomous insect and other nonvenomous arthropods, initial encounter Complete Blood Count Auto Diff Today W57.XXXA - Bitten or stung by nonvenomous insect and other nonvenomous arthropods, initial encounter Lyme IgG/IgM w/reflex to WB Today W57.XXXA - Bitten or stung by nonvenomous insect and other nonvenomous arthropods, initial encounter Medications: New prednisone See taper instructions 10 mg PO DIRECTED 21 ea 0RF doxycycline hyclate 100 mg PO BID 10 days 20 tabs 0RF Coding Level of Care Code Est Pt Level 4 (45432) Diagnoses Tick bite W57.XXXA
[2025-03-20 10:25] VITALS: BP 140/80; PULSE 69; TEMP 37.1; O2SAT 96
== END 2025-03-20 11:10 | disposition home or self-care (01) ==
PROVIDERS: PCP Internal Medicine; Visit Provider Physician Assistant Medical
DX: T63.481A Toxic effect of venom of other arthropod, accidental (unintentional), initial encounter (principal)

== ENCOUNTER → 2025-03-20 09:15 | Outpatient (BNVA) | payer BC, SELFPAY | PROVIDERS: PCP Internal Medicine; Visit Provider Physician Assistant Medical ==

== ENCOUNTER 2025-03-20 11:39 | Outpatient (REF) | payer BC, SELFPAY ==
[2025-03-20 12:03] LABS: MANUAL DIFF FLAG NO
[2025-03-20 12:19] LABS: Basophils Absolute Auto 0.1 X10*3/uL (0.0-0.2); Basophils Percent Auto 0.7 % (0-2); Eosinophils Absolute Auto 0.1 X10*3/uL (0.0-0.4); Eosinophils Percent Auto 0.9 % (0-4); Hematocrit 49.4 % (42.0-52.0); Hemoglobin 17.1 g/dl (14.0-18.0); Imm Gran Abs Auto 0.09 X10*3/uL (0.00-0.03); Imm Gran Pct Auto 0.7 % (0.0-0.4); Lymphocytes Absolute Auto 2.6 X10*3/uL (1.2-4.9); Lymphocytes Percent Auto 20.3 % (20-40); Mean Corpuscular HGB Conc 34.6 g/dl (31.0-36.0); Mean Corpuscular Hemoglobin 34.1 pg (27.0-33.0); Mean Corpuscular Volume 98.4 fL (80.0-98.0); Mean Platelet Volume 10.3 fL (9.4-12.4); Monocytes Absolute Auto 1.4 X10*3/uL (0.1-1.2); Monocytes Percent Auto 11.1 % (2-11); Neutrophils Absolute Auto 8.4 x10*3/uL (2.0-8.3); Neutrophils Percent Auto 66.3 % (45-73); Platelet Count 193 X10*3/uL (160-400); Red Blood Count 5.02 X10*6/uL (4.60-5.80); Red Cell Distribution Width 11.9 % (11.0-16.0); White Blood Count 12.6 X10*3/uL (4.8-10.8)
[2025-03-21 11:08] LABS: Lyme Abs Screen <0.90 index
[2025-03-22 19:48] LABS: A. Phagocytphilium DNA,RT-PCR NOT DETECTED (NOT DETECTED); Babesia Microti DNA, RT-PCR NOT DETECTED (NOT DETECTED); Borrelia Miyamotoi,DNA RT-PCR NOT DETECTED (NOT DETECTED); E.Chaffeensis DNA RT-PCR NOT DETECTED (NOT DETECTED); Lyme(Borrelia ssp)DNA RT-PCR NOT DETECTED (NOT DETECTED)
== END 2025-03-20 11:40 | disposition home or self-care (01) ==
LOC: HO.10HDL 11:39
PROVIDERS: Visit Provider Physician Assistant Medical
DX: S30.860A Insect bite (nonvenomous) of lower back and pelvis, initial encounter (principal); W57.XXXA Bitten or stung by nonvenomous insect and other nonvenomous arthropods, initial encounter
CPT/HCPCS: 36415; 85025; 86617; 86618; 87468; 87469; 87478; 87484; 87798

== ENCOUNTER 2025-03-23 08:56 | Outpatient (REF) | payer BC, SELFPAY ==
--- NOTE | 2025-03-23 08:59 | PFT_ITS ---
Flows: FEV1: 95 % of predicted at 3.57 L FVC: 100 % of predicted at 4.83 L FEV1/FVC: 74 % Bronchodilator response: Present Volumes: Total lung capacity: 92 % of predicted at 6.66 L Residual volume: 80 % of predicted at 1.64 L Slow vital capacity: 96 % of predicted at 5.01 L Expiratory reserve volume: 42 % of predicted at 0.59 L Diffusion capacity: Normal Impression: Mild reversible obstructive ventilatory defect with positive bronchodilator response. Decreased expiratory reserve volume suggests extrathoracic restriction likely secondary to abdominal obesity. MTDD
[2025-03-23 09:44] VITALS: PULSE 61; O2SAT 97
== END 2025-03-23 08:57 | disposition home or self-care (01) ==
LOC: HO.RESP 08:56
PROVIDERS: PCP Internal Medicine; Visit Provider Internal Medicine
DX: R05.3 Chronic cough (principal); J45.41 Moderate persistent asthma with (acute) exacerbation
CPT/HCPCS: 94010; 94640; 94727; 94729

== ENCOUNTER → 2025-03-23 08:59 | Outpatient (BNV) | payer BC, SELFPAY | PROVIDERS: PCP Internal Medicine; Visit Provider Internal Medicine Pulmonary Disease | DX: R05.3 Chronic cough (principal) | CPT/HCPCS: 94060; 94727; 94729 ==

== ENCOUNTER 2025-03-27 10:40 | Outpatient (AMB) | payer BC, SELFPAY ==
--- NOTE | 2025-03-27 10:52 | A.OFFVIS_ITS ---
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 Allergies sulfamethoxazole [From Bactrim] Allergy (Intermediate, Verified 03/27/25 11:16) mucosal and hand rash/scaling trimethoprim [From Bactrim] Allergy (Intermediate, Verified 03/27/25 11:16) mucosal and hand rash/scaling amoxicillin Allergy (Unknown, Verified 03/27/25 11:16) Unknown fenofibrate [From TRICOR] Allergy (Unknown, Verified 03/27/25 11:16) UNKNOWN Medication List - Last Reconciled 03/27/25 by Inessa Sanchez MD albuterol sulfate 90 mcg/actuation 2 puffs PO Q6H PRN ascorbic acid (vitamin C) 500 mg PO DAILY citalopram 20 mg PO DAILY 90 days finasteride 5 mg PO DAILY 90 days fluticasone propion-salmeterol 100-50 mcg/dose (Advair Diskus) 1 inh inhalation BID levothyroxine 175 mcg PO DAILY 60 days lisinopril 5 mg PO DAILY 90 days multivitamin with minerals (Men's One Daily tablet) 1 tab PO DAILY omega-3 fatty acids (Fish Oil Concentrate) 1,000 mg PO DAILY prednisone 10 mg PO DIRECTED tadalafil 5 mg PO DAILY 90 days verapamil 80 mg PO TID 90 days vitamin E (dl, acetate) 450 mg PO DAILY 90 days Do you need a note to return to daycare/school/sports/work: No HPI HPI Cough: Details: THIS GENTLEMAN IS 54 YEARS OLD, COMES FOR FOLLOW-UP AFTER HIS ROUTINE WORKUP INCLUDING PULMONARY FUNCTION TEST. SINCE THE LAST VISIT 2 MONTHS AGO HE HAS NOT NEEDED TO USE ALBUTEROL AND HE ALSO STOPPED USING ADVAIR. HE HAS ONLY OCCASIONAL MILD COUGH NO SHORTNESS OF BREATH AND NO WHEEZING. RECENTLY HAD A TICK BITE ON THE RIGHT UPPER EYELID, WAS SEEN IN THE WALK-IN CLINIC AND TREATED WITH A COURSE OF ANTIBIOTIC. AT PRESENT HE IS DOING WELL AND HE IS NOT USING ANY INHALERS. 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 Trigger finger, right middle finger Mixed hyperlipidemia Impaired fasting glucose Depression Obesity (BMI 30-39.9) Anxiety Hypertriglyceridemia Supraventricular tachycardia Acquired hypothyroidism Benign essential hypertension Pleuritic chest pain Pneumonia Sepsis HTN (hypertension) BPH w urinary obs/LUTS Hepatic steatosis Surgical History S/P trigger finger release (~08/03/23) History of carpal tunnel release (~08/03/23) H/O right knee surgery Hx of meniscectomy of right knee History of cystoscopy History of colonoscopy History of back surgery Family History Father CVD (cardiovascular disease) Heart attack Rheumatoid arthritis Mother Dementia Social History Household Members: Significant Other Housing: House Do you presently have visiting nurse or other home services: No Alcohol intake: current Alcohol intake frequency: a few times a week Alcohol type: wine Comment: pt states tylenol will help him better Patient Tobacco Use Status: Current everyday Tobacco user Tobacco use type: Cigarette Cigarettes Per Day: 3 Years Smoked: when I drink e-Cigarette/Vaping Use: Never Used Second Hand Smoke Exposure: No Advance Directives Date on File: 02/23/19 service: No Current occupational status: employed 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 Cognitive needs: No Hearing needs: No Vision needs: No Review of Systems Const All systems reviewed & are unremarkable except as noted in HPI and below Eyes Reports no additional complaints ENT Reports no additional complaints Card Denies chest pain, Denies syncope, Denies irregular heart rhythm and Denies leg edema Resp Reports as per HPI GI Reports no additional complaints Reports nocturia and Reports urinary urgency Musc Reports no additional complaints Skin/Breast Reports system reviewed and no additional complaints, except as documented Neuro Reports no additional complaints and Denies syncope Psych Reports depression (Being treated with citalopram) Endo Reports other (Hypothyroidism being treated with levothyroxine) Aller/Immun Reports no additional complaints Physical Exam Vital Signs: Last Vital Signs Pulse 63 03/27/25 10:53 BP 140/80 H 03/27/25 10:53 Pulse Ox 96 03/27/25 10:53 Oxygen Delivery Method Room Air 03/27/25 10:53 BMI result Body Mass Index 31.0 Const General: healthy appearing, comfortable, no acute distress, alert and awake Orientation/consciousness: patient oriented x3 HEENT Head: Yes normal to inspection General nose exam: No nasal polyps present and No nasal discharge present Face and sinus: Yes sinuses nontender Mouth: oropharynx normal Throat: Yes posterior oropharynx normal Eyes General: appearance normal, both eyes and all related structures Neck Neck: Yes normal visual inspection, Yes no lymphadenopathy, Yes trachea midline and Yes no JVD Thyroid: Thyroid normal Chest Chest palpation & inspection: normal inspection of the chest, normal palpation of entire chest wall and no tenderness Resp Other: Percussion note is resonant. Breath. Sounds equal on both sides No audible wheezes crepitations or rhonchi. Cardio Palpation: normal PMI Rate: regular rate Rhythm: regular rhythm Heart sounds: no gallops and no murmurs Peripheral pulses: Peripheral pulses 2+ throughout GI Palpation (GI): Soft to palpation, nontender, No hepatosplenomegaly present and no masses Auscultation: normal bowel sounds Back/Spine/Pelvis Thoracic/Lumbar Spine: thoracic and lumbar spine normal to inspection Skin General skin exam: no rashes or lesions noted Neuro General: patient oriented x3 and no focal motor deficits Cranial nerves: Yes CN's II-XII intact bilaterally Extrem General: Yes normal to inspection, Yes no clubbing, cyanosis or edema and Yes no calf tenderness Psych Appearance: grossly normal and well kempt Speech and movement: Normal speech and movement present Results Reviewed Results Reviewed: PULMONARY FUNCTION TEST IS SLIGHTLY ABNORMAL, FEV1/FVC RATIO 65. FEF 25-75 48%, AND THERE IS SIGNIFICANT INCREASE AFTER BRONCHODILATOR THERAPY. FINDINGS ARE CONSISTENT WITH MILD BRONCHIAL ASTHMA. HIS CURRENT CBC SHOWS THAT HIS EOSINOPHILIC COUNT IS DOWN TO NORMAL Assessment & Plan Assessment & Plan (1) Asthma: Comment: History is suggestive of hyper reactive airways/ bronchial asthma. Which may be triggered by post infectious hyper responsive airways, or some unknown allergy or hypersensitivity to environmental changes. Presence of eosinophilia , in November 2024 when he ended up in the emergency room, is suggestive of allergic or hypersensitivity syndrome. However his latest CBC shows normal white cell / eosinophil count . Patient has stopped using Advair and he also does not need to use the albuterol much . Code(s): J45.909 - Unspecified asthma, uncomplicated Category: Medical Qualifiers: Asthma severity: moderate Asthma persistence: persistent Asthma complication type: with acute exacerbation Qualified Code(s): J45.41 - Moderate persistent asthma with (acute) exacerbation Plan: Had a good discussion Explained to him about the PFT findings. Told him that he is prone to have hypersensitivity state after any respiratory infection or after exposure to some allergens which have not been identified. He is not inclined to use any maintenance therapy at this time Will start using Advair and also albuterol as needed. He plans to see me only on p.r.n. basis. Coding Level of Care Code Est Pt Level 3 (03838) Diagnoses Moderate persistent asthma with acute exacerbation J45.41 Asthma severity: moderate Asthma persistence: persistent Asthma complication type: with acute exacerbation
[2025-03-27 10:53] VITALS: BP 140/80; PULSE 63; O2SAT 96; BMI 31.0
== END 2025-03-27 16:37 | disposition home or self-care (01) ==
LOC: HO.HPS 10:41
PROVIDERS: PCP Internal Medicine; Visit Provider Internal Medicine
DX: J45.41 Moderate persistent asthma with (acute) exacerbation (principal)
CPT/HCPCS: 99213

== ENCOUNTER → 2025-03-27 10:40 | Outpatient (BNVA) | payer BC, SELFPAY | PROVIDERS: PCP Internal Medicine; Visit Provider Internal Medicine ==

== ENCOUNTER 2025-06-28 08:50 | Outpatient (REF) | payer BC, SELFPAY ==
[2025-06-28 10:21] LABS: MANUAL DIFF FLAG NO
--- OUTSIDE RECORDS SUMMARY | 2025-06-28 10:21 | XMS_ITS | Clinical Summary ---
Author Organization [facility] Address [address] [place], [place] [id number] Phone Care Team Providers Care Mannequin Sander And Finisher Name Role Phone Brent Stewart MD Primary Care Provider [phone] Allergies Active Allergy Reactions Criticality Noted Date Comments Amoxicillin 03/20/2023 Sulfamethoxazole-Trimethoprim 2022 Sulfa (Sulfonamide Antibiotics) 11/2022 Medications citalopram (CELEXA) 20 MG tablet Take 1 tablet by mouth every morning. 02/03/2023 Active diclofenac sodium (VOLTAREN) 50 MG EC tablet 1 tablet with food or milk Active finasteride (PROSCAR) 5 mg tablet Take 1 tablet by mouth every morning. 01/05/2023 Active levothyroxine (SYNTHROID, LEVOTHROID) 175 MCG tablet Take 1 tablet by mouth every morning. 03/08/2023 Active lisinopril (PRINIVIL,ZESTRI L) 5 MG tablet Take 1 tablet by mouth every morning. 02/03/2023 Active methylPREDNISolo ne (MEDROL) 4 MG tablet 1 tablet with food or milk Active nicotine 21-14-7 mg/24 hr PTDS 1 patch to skin Active verapamiL (CALAN) 80 MG immediate release tablet Take 80 mg by mouth 3 (three) times a day. 03/08/2023 Active Active Problems No known active problems Immunizations Immunization Administration Dates Next Due INFLUENZA, SPLIT VIRUS, TRIVALENT W/ PRESERVATIV E IM 09/25/2015 Influenza Quadrivalent Preservative Free IM 12/2020 Influenza Quadrivalent w/ Preservative IM 2018,10/07/2016 Tdap 01/26/2014 Social History Tobacco Use Types Packs/Day Years Used Date Smoking Tobacco: Some Days Cigarettes Smokeless Tobacco: Never Tobacco Cessation:Ready to Q uit: Not Asked; Counseling Given: Not Answered Education Answer Date Recorded Are you interested in more education? Not on cliff e 03/20/2023 Are you concerned about learning? Not on file 03/20/2023 No 03/20/2023 No 03/20/2023 Digital Access Answer Date Recorded No 03/20/2023 No 03/20/2023 Reliable internet access at home? Not on file 03/20/2023 Device with a working camera? Not on file Sex and Gender Information Value Date Recorded Sex Assigned at Not on file Legal Sex Male 7:56 AM EDT Gender Identity Not on file Sexual Orientation Not on file Last Filed Vital Signs Vital Sign Reading Time Taken Comments Blood Pressure 144/89 03/20/2023 8:09 AM EDT Pulse 79 03/20/2023 8:09 AM EDT Temperature 36.5 C (97.7 F) 03/20/2023 8:09 AM EDT Respiratory Rate 18 03/20/2023 8:09 AM EDT Oxygen Saturation 98% 03/20/2023 8:09 AM EDT Inhaled Oxygen Concentration - - Weight 94.8 kg (209 lb) 03/20/2023 8:09 AM EDT Height 177.8 cm (5' 10 ) 03/20/2023 8:09 AM EDT Body Mass Index 29.99 03/20/2023 8:09 AM EDT Plan of Treatment Health Maintenance Due Date Last Done Comments CREATININE LEVEL 1969 LIPID PANEL 1969 POTASSIUM LEVEL 1969 TSH LEVEL 1969 DEPRESSION SCREENING 1981 SMOKING Hx and SMOKELESS TOBACCO SCREENING 1982 HEPATITIS C SCREENING 1987 HIV ONE-TIME SCREENING (18-65 YEARS) 1987 PNEUMOCOCCAL VACCINES (50+ years) (1 of 2 - PCV) 1988 SCREENING FOR DIABETES 2004 COLOGUARD 2014 COLONOSCOPY 2014 COLORECTAL CANCER SCREENING 2014 FIT TEST 2014 FOBT 2014 SIGMOIDOSCOPY 2014 VIRTUAL COLONOSCOPY 2014 ZOSTER VACCINES (1 of 2) 2019 Adult Td,Tdap Booster 01/27/2024 01/26/2014 INFLUENZA VACCINE (#1) 2025 1, 07/20/2019, 10/07/2016, Additional history exists COVID-19 VACCINE ( season) 2025 09/22/2021, 03/26/2021, 03/05/2021 HEPATITIS A VACCINES Aged Out No long er eligible based on patient's age to complete this topic HIB VACCINES Aged Out No longer eligi ble based on patient's age to complete this topic MENINGOCOCCAL VACCINES (ACWY) Aged Out No longer eligible based on patient's age to complete this topic MENINGOCOCCAL VACCINES (B) Aged Out N o longer eligible based on patient's age to complete this topic Medical Devices Not on file Insurance HMO POS HMO [place] [address] [place] [address] [place] [address] [place] [address] [place] [address] HMO POS Care Teams Mannequin Sander And Finisher Relationship Specialty Start Date End Date Brent Stewart MD [address] [place] [address] [place] [address] PCP - General Internal Medicine 03/20/23 Additional Source Comments The information contained in this document represents components of the legal health record. It is not the complete legal health record.[facility]
[2025-06-28 10:38] LABS: Hematocrit 45.4 % (42.0-52.0); Hemoglobin 15.6 g/dl (14.0-18.0); Imm Gran Abs Auto 0.04 X10*3/uL (0.00-0.03); Imm Gran Pct Auto 0.4 % (0.0-0.4); Lymphocytes Absolute Auto 2.1 X10*3/uL (1.2-4.9); Mean Corpuscular HGB Conc 34.4 g/dl (31.0-36.0); Mean Corpuscular Hemoglobin 34.1 pg (27.0-33.0); Mean Corpuscular Volume 99.3 fL (80.0-98.0); NRBC Abs Auto 0.000 X10*3/uL (0.0-0.012); NRBC Pct Auto 0.0 /100WBC (0.0-0.2); Platelet Count 187 X10*3/uL (160-400); Red Blood Count 4.57 X10*6/uL (4.60-5.80); White Blood Count 10.4 X10*3/uL (4.8-10.8)
[2025-06-28 11:16] LABS: Alanine Aminotransferase 77 U/L (0-40); Albumin Level 4.4 g/dL (3.5-5.0); Alkaline Phosphatase 93 U/L (39-117); Anion Gap 12 (12-20); Aspartate Amino Transferase 72 U/L (5-37); Blood Urea Nitrogen 14 mg/dL (9-16); Calcium 9.2 mg/dL (8.4-10.2); Carbon Dioxide 26 mmol/L (22-29); Chloride 102 mmol/L (96-108); Cholesterol 177 mg/dL (<200); Estimated Glomerular Filt Rate > 60; HDL Cholesterol 32 mg/dL (>40); Potassium 4.3 mmol/L (3.3-5.1); Sodium 136 mmol/L (135-145); Total Protein 7.5 g/dL (6.5-8.0); Triglycerides 111 mg/dL (<150)
[2025-06-28 11:26] LABS: PSA,Total (Free>4and<10) 13.94 ng/mL (0.00-4.00)
[2025-06-28 11:39] LABS: Free T4 (Free Thyroxine) 1.17 ng/dL (0.71-1.85); Thyroid Stimulating Hormone 3.20 uIU/mL (0.32-4.0)
== END 2025-06-28 08:51 | disposition home or self-care (01) ==
LOC: HO.10HDL 08:50
PROVIDERS: Urology; Visit Provider Internal Medicine
DX: Z12.5 Encounter for screening for malignant neoplasm of prostate (principal); E78.00 Pure hypercholesterolemia, unspecified; E03.9 Hypothyroidism, unspecified; R97.20 Elevated prostate specific antigen [PSA]; D64.9 Anemia, unspecified
CPT/HCPCS: 36415; 80053; 80061; 84153; 84439; 84443; 85025

== ENCOUNTER 2025-06-29 11:54 | Outpatient (AMB) | payer BC, SELFPAY ==
[2025-06-29 11:56] VITALS: BP 150/92; PULSE 63; O2SAT 95; BMI 30.7
--- NOTE | 2025-06-29 11:56 | MHC.PC.OV ---
Vital Signs 06/29/25 11:56 06/29/25 12:24 Height 5 ft 10 in Weight 214 lb 4 oz BMI 30.7 BP 150/92 H 144/90 H Blood Pressure Location Lt brachial Lt brachial Position Sitting Sitting Pulse 63 Pulse Source Pulse Oximeter Pulse Oximetry (%) 95 Oxygen Delivery Method Room Air Intake Visit Reasons: 4 month f/u Linseed Oil Order Filler Required: No Accompanied by: Self / Same As Patient Allergies sulfamethoxazole (From Bactrim) Allergy (Intermediate, Verified 06/29/25 12:15) mucosal and hand rash/scaling trimethoprim (From Bactrim) Allergy (Intermediate, Verified 06/29/25 12:15) mucosal and hand rash/scaling amoxicillin Allergy (Unknown, Verified 06/29/25 12:15) Unknown fenofibrate (From TRICOR) Allergy (Unknown, Verified 06/29/25 12:15) UNKNOWN Medication List - Last Reconciled 06/29/25 by Brent Stewart MD albuterol sulfate 90 mcg/actuation 2 puffs PO Q6H PRN ascorbic acid (vitamin C) 500 mg PO DAILY citalopram 20 mg PO DAILY 90 days finasteride 5 mg PO DAILY 90 days fluticasone propion-salmeterol 100-50 mcg/dose (Advair Diskus) 1 inh inhalation BID levothyroxine 175 mcg PO DAILY 60 days lisinopril 5 mg PO DAILY 90 days multivitamin with minerals (Men's One Daily tablet) 1 tab PO DAILY omega-3 fatty acids (Fish Oil Concentrate) 1,000 mg PO DAILY prednisone 10 mg PO DIRECTED tadalafil 5 mg PO DAILY 90 days verapamil 80 mg PO TID 90 days vitamin E (dl, acetate) 450 mg PO DAILY 90 days Tobacco use date assessed: 06/29/25 Dental Screening Dental Screen Date: 06/29/25 Did you have a dental visit in the last 12 months?: Yes Did you have a dental problem in the last 6 months where you did not have access to dental care?: No Was dental information given to patient?: Patient has dentist HPI 4 month f/u HPI Details Patient comes in today for his follow up visit States that he has been experiencing recurrent increased diffuse joint pains for a few months now and is currently on Doxycycline 100 mg BID upon the recommendation of a friend who is a neurosurgeon and who advised him to take Doxycycline empirically for presumptive Lyme disease even though he has tested negative for Lyme disease a few months ago in March 2025 States that he is now a week into his Abx and thinks that his symptoms have improved somewhat from the Rx - states that he has about a week left of the Abx and is wondering how long he needs to take his Rx for He denies any fever or sore throat and denies any recent cough/cold symptoms Denies any chest pains, no SOB No nausea/vomiting, no abdominal pain No change in bowel habits noted Needs his Albuterol inhaler Rx refilled Would also like to get an Rx for some prednisone that he can take on an as-needed basis for whenever his joint pains flare up He had his follow up labs done yesterday - to discuss his results [facility] Medical History 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 Trigger finger, right middle finger Mixed hyperlipidemia Impaired fasting glucose Depression Obesity (BMI 30-39.9) Anxiety Hypertriglyceridemia Supraventricular tachycardia Acquired hypothyroidism Benign essential hypertension Pleuritic chest pain Pneumonia Sepsis HTN (hypertension) BPH w urinary obs/LUTS Hepatic steatosis Surgical History S/P trigger finger release (~08/03/23) History of carpal tunnel release (~08/03/23) H/O right knee surgery Hx of meniscectomy of right knee History of cystoscopy History of colonoscopy History of back surgery Family History Father CVD (cardiovascular disease) Heart attack Rheumatoid arthritis Mother Dementia Social History Household Members: Significant Other Housing: House Do you presently have visiting nurse or other home services: No Alcohol intake: current Alcohol intake frequency: a few times a week Alcohol type: wine Comment: pt states tylenol will help him better Patient Tobacco Use Status: Current everyday Tobacco user Tobacco use type: Cigarette Cigarettes Per Day: 3 Years Smoked: when I drink e-Cigarette/Vaping Use: Never Used Second Hand Smoke Exposure: No Advance Directives Date on File: 02/23/19 service: No Current occupational status: employed 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 1. Little interest or pleasure in doing things: not at all 2. Feeling down, depressed, or hopeless: not at all 3. Trouble falling or staying asleep, or sleeping too much: not at all 4. Feeling tired or having little energy: not at all 5. Poor appetite or overeating: not at all 6. Feeling bad about yourself - or that you are a failure or have let yourself or your family down: not at all 7. Trouble concentrating on things, such as reading the newspaper or watching television: not at all 8. Moving or speaking so slowly that other people could have noticed. Or the opposite - being so fidgety or restless that you have been moving around a lot more than usual: not at all 9. Thoughts that you would be better off or of hurting yourself in some way: not at all Total score: 0 Depression Screening Interpretation: Negative Depression Screening Done: Yes 20585 - PHQ-9 Billing: Yes Source: Developed by Drs. Fredi Garvin, Berenice Ortiz, Keaton Son and colleagues, with an educational eren from [employer]. Thrive Questionnaire Date Thrive assessed: 06/29/25 I am a: Patient What is your living situation today?: I have a steady place to live Within the past 12 months, did the food you bought not last and you didn't have the money to get more?: I choose not to answer this question Within the past 12 months, did you worry whether your food would run out before you got money to buy more?: Never true Do you have trouble paying for medicines?: No Do you have trouble getting transportation to medical appointments?: No Do you have trouble paying your heating and electricity bill?: No Do you have trouble taking care of your child, family member or friend?: No Do you have trouble with day-to-day activities such as bathing, preparing meals, shopping, managing finances, etc.?: No Are you currently unemployed and looking for a job?: Yes Are you interested in more education?: No Please select the resources that you would like help with: None Currently or been in a relationship where the following occur: No concerns reported THRIVE Score: 0 AUDIT C Alcohol Use Questionnaire (AUDIT-C) 1. How often do you have a drink containing alcohol?: Monthly or less 2. How many drinks containing alcohol do you have on a typical day when you are drinking?: 1 or 2 3. How often do you have six or more drinks on one occasion?: Never Total Score: 1 Score Reviewed/Action Taken: Yes BRANDEN-7 AMB Questionnaire BRANDEN-7 Date BRANDEN - 7 assessed: 06/29/25 Feeling nervous, anxious, or on edge: 0 = Not at all Not being able to stop or control worryin = Not at all Worrying too much about different things: 0 = Not at all Trouble relaxin = Not at all Being so restless that it is hard to sit still: 0 = Not at all Becoming easily annoyed or irritable: 0 = Not at all Feeling afraid as if something awful might happen: 0 = Not at all Total BRANDEN-7 score (0-4 normal; 5-9 mild; 10-14 moderate; 15-21 severe): 0 Source: Developed by Drs. Fredi Garvin, Berenice Ortiz, Keaton Son and colleagues, with an educational eren from [employer]. Review of Systems Const Denies chills, Reports fatigue (mild), Denies fever(s) and Denies headache(s) ENT Denies dysphagia, Denies dizziness, Denies otalgia, Denies headache(s), Denies nasal congestion, Denies neck pain, Denies odynophagia and Denies sore throat Card Denies chest pain, Denies rapid heart rate, Denies irregular heart rhythm, Denies palpitations and Denies dyspnea Resp Denies chest congestion, Denies cough, Denies dyspnea and Denies wheezing GI Denies abdominal pain, Denies constipation, Denies dysphagia, Denies heartburn, Denies diarrhea, Denies nausea, Denies odynophagia and Denies vomiting Denies difficulty urinating, Denies dysuria, Denies nocturia and Denies urinary frequency Musc Denies back pain, Reports arthralgias (diffuse; recurrent) and Denies neck pain Skin/Breast Denies rash Neuro Denies dizziness, Denies headache(s) and Denies paresthesias Endo Reports fatigue (mild) and Denies palpitations Aller/Immun Denies wheezing Physical exam (Primary Care) Vital Signs: Last Vital Signs Pulse 63 06/29/25 11:56 BP 144/90 H 06/29/25 12:24 Pulse Ox 95 06/29/25 11:56 Oxygen Delivery Method Room Air 06/29/25 11:56 BMI result Body Mass Index 30.7 Tobacco/Smoking Status: Tobacco use Status Tobacco use date assessed 06/29/25 06/29/25 12:03 Patient Tobacco Use Status Current everyday Tobacco 06/29/25 12:03 Tobacco use type Cigarette 06/29/25 12:03 e-Cigarette/Vaping Use Never Used 06/29/25 12:03 PHQ-9: PHQ-9 Score PHQ-9: Total score 0 06/30/25 09:29 Depression Screening Interpretation: Negative Thrive Assessment: Date of Thrive Assessment Date Thrive assessed 06/29/25 06/29/25 12:03 Currently or been in a relationship where the following occur: No concerns reported Const General: no acute distress and alert HENMT Ears: TM's normal bilaterally and EAC's normal Throat: Yes posterior oropharynx normal and Yes tonsils normal (no TP congestion) Neck Neck: Yes supple and No lymphadenopathy Thyroid: Thyroid normal Resp Auscultation: clear to auscultation bilaterally, no crackles, no rales and no wheezes Cardio Rate: regular rate Rhythm: regular rhythm Heart sounds: no murmurs GI Palpation (GI): Soft to palpation and nontender Auscultation: normal bowel sounds General: Yes no CVA tenderness Back/Spine/Pelvis Back: no CVA tenderness Thoracic/Lumbar Spine: No lumbar spinal tenderness Skin Rashes: no rashes Extrem Other: right hand is currently still in bandages - s/p hand surgery a couple of days ago - had carpal tunnel release and trigger finger(s) release done General: Yes no clubbing, cyanosis or edema Results Reviewed Results Reviewed: Laboratory Tests 06/28/25 08:55 WBC 10.4 Hgb 15.6 Hct 45.4 Plt Count 187 Sodium 136 Potassium 4.3 Creatinine 0.75 Estimated GFR > 60 Fasting Glucose 119 H Calcium 9.2 Total Bilirubin 1.5 H AST 72 H ALT 77 H Triglycerides 111 Cholesterol 177 LDL Cholesterol, Calc 123 H HDL Cholesterol 32 L Total PSA 13.94 H TSH 3.20 Free T4 1.17 Coding Level of Care Code Est Pt Level 4 (16223) Diagnoses Mixed hyperlipidemia E78.2 Elevated LFTs R79.89 Benign essential hypertension I10 Supraventricular tachycardia I47.1 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 E06.3 Impaired fasting glucose R73.01 Arthralgia, unspecified joint M25.50 Joint pain location: unspecified BPH w urinary obs/LUTS N40.1; N13.8 Anxiety F41.9 Episode of recurrent major depressive disorder, unspecified depression episode severity F33.9 Active/Remission status: currently active Depression Type: major depressive disorder Major depression episode severity: unspecified Major depression recurrence: recurrent Obesity (BMI 30-39.9) E66.9 Additional Codes PHQ-9 - 91545 - PHQ-9 Billing: Yes ([id number]) Assessment & Plan Assessment & Plan (1) Mixed hyperlipidemia: Code(s): E78.2 - Mixed hyperlipidemia Category: Medical Plan: Results of his labs done yesterday reviewed and discussed with patient His LDL cholesterol has increased significantly from previous and is now at 123 mg/dl; his serum triglycerides have improved to 111 mg/dl Reinforced low cholesterol diet Continue Fish Oil capsules 1000 mg once a day and Gemfibrozil 600 mg QD (patient was experiencing a lot of muscle cramps when he was on Tricor a few years ago) Will continue to hold off on starting him on statins for now, especially since his LFTs are still elevated Will recheck his labs and fasting lipids in 4 months for follow up (2) Elevated LFTs: Code(s): R79.89 - Other specified abnormal findings of blood chemistry Category: Medical Plan: Have advised patient that his LFTs are still elevated although they have improved slightly from previous His hepatitis profile came back negative when checked earlier this year in November 2024 Repeat abdominal US done in December 2024 revealed (+) hepatosplenomegaly and findings of hepatic steatosis. Hepatocellular disease, cholelithiasis, nonobstructing nephrolithiasis in the left kidney as well as (+) cystic lesions in the left kidney. No ascites were noted Will also check his liver fibrosis panel in a few months for further evaluation (3) Benign essential hypertension: Code(s): I10 - Essential (primary) hypertension Category: Medical Plan: Reinforced low sodium diet - goal is systolic BP of 120 mm or less Continue Lisinopril 5 mg QD He is also on Verapamil 80 mg TID for his SVT - this helps with his BP as well (4) Supraventricular tachycardia: Code(s): I47.1 - Supraventricular tachycardia Category: Medical Plan: Patient states that he's had no recurrence of symptoms since last year Continue Verapamil 80 mg TID Follow up with cardiology as scheduled (5) 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: Code(s): E06.3 - Autoimmune thyroiditis Category: Medical Plan: His TFTS were normal on his recent labs Continue Levothyroxine 175 mcg QD Will recheck his TFTs in 4 months for follow up (6) Impaired fasting glucose: Code(s): R73.01 - Impaired fasting glucose Category: Medical Plan: His FBS was again elevated at 119 mg/dl on his recent labs; his HgbA1c was normal at 4.9% and 5.0% when previously checked Reinforced low calorie/low carb diet, exercise as tolerated (7) Arthralgia: Code(s): M25.50 - Pain in unspecified joint Category: Medical Qualifiers: Joint pain location: unspecified Qualified Code(s): M25.50 - Pain in unspecified joint Plan: He is currently taking empiric Doxycycline 100 mg BID for his joint pains - is advised to continue for a total of 21 days (additional Rx sent to pharmacy) His joint pains are likely due to osteoarthritis as his previous work ups for inflammatory joint diseases have all come back negative Continue OTC Tylenol or Ibuprofen PRN for symptomatic relief and Percocet 5-325 mg PRN for more severe pain Due to his recent recurrent symptom flare ups, will recheck his serologies in a few months for follow up / further evaluation Per request, will also provide him with Rx for oral Prednisone that he can take as needed for when his arthralgias get worse more than usual (8) BPH w urinary obs/LUTS: Code(s): N40.1 - Benign prostatic hyperplasia with lower urinary tract symptoms; N13.8 - Other obstructive and reflux uropathy Category: Medical Plan: S/P multiple [place] [facility] [place] the [place] - he is happy that his biopsies have all come back negative for malignancy States that all of his past imaging studies (MRI, US) were also negative His last PSA came back at 13.94 on his labs done yesterday Continue Finasteride 5 mg QD and Tadalafil 5 mg QD Follow up with urology as scheduled (9) Anxiety: Code(s): F41.9 - Anxiety disorder, unspecified Category: Medical Plan: Continue Citalopram 20 mg QD (10) Depression: Code(s): F32.A - Depression, unspecified Category: Medical Qualifiers: Active/Remission status: currently active Depression Type: major depressive disorder Major depression episode severity: unspecified Major depression recurrence: recurrent Qualified Code(s): F33.9 - Major depressive disorder, recurrent, unspecified Plan: Continue Citalopram 20 mg QD Follow up with psychiatry as scheduled (11) Obesity (BMI 30-39.9): Code(s): E66.9 - Obesity, unspecified Category: Medical Plan: Reinforced diet/exercise as tolerated/lose weight Plan Follow up in 4 months Orders: Orders Comprehensive Roberts. Panel Fast 4 Months E78.00 - Pure hypercholesterolemia, unspecified Lipid Panel 4 Months E78.00 - Pure hypercholesterolemia, unspecified Free T4 (Free Thyroxine) 4 Months E03.9 - Hypothyroidism, unspecified Vitamin B12 and Folate 4 Months E53.8 - Deficiency of other specified B group vitamins Vitamin D 25-OH Total 4 Months E55.9 - Vitamin D deficiency, unspecified Uric Acid 4 Months M25.50 - Pain in unspecified joint Rheumatoid Factor 4 Months M25.50 - Pain in unspecified joint Hemoglobin A1c 4 Months R73.01 - Impaired fasting glucose Complete Blood Count Auto Diff 4 Months D64.9 - Anemia, unspecified Thyroid Stimulating Hormone 4 Months E03.9 - Hypothyroidism, unspecified UA CC w/rflx Micro + Cult 4 Months R30.0 - Dysuria Liver Fibrosis Pnl 4 Months R79.89 - Other specified abnormal findings of blood chemistry C Reactive Protein 4 Months M25.50 - Pain in unspecified joint Erythrocyte Sedimentation Rate 4 Months M25.50 - Pain in unspecified joint LORE Reflex Titer and Pattern 4 Months M25.50 - Pain in unspecified joint Medications: New prednisone Take only when needed for severe joint pains 20 mg PO DAILY PRN 3 tabs 1RF severe joint pains 3 days doxycycline hyclate 100 mg PO BID 14 caps 0RF 7 days Refilled albuterol sulfate 90 mcg/actuation 2 puffs PO Q6H PRN 8.5 grams 3RF shortness of breath or wheezing J18.9 - Pneumonia, unspecified organism, R06.00 - Dyspnea, unspecified
[2025-06-29 12:24] VITALS: BP 144/90
--- OUTSIDE RECORDS SUMMARY | 2025-06-29 16:16 | XMS_ITS | Clinical Summary ---
Author Organization [facility] Address [address] [place], [place] [id number] Phone Care Team Providers Care Cylinder Machine Operator Name Role Phone Brent Stewart MD Primary Care Provider [phone] Allergies Active Allergy Reactions Criticality Noted Date [...] Insurance HMO POS HMO [place] [address] [place] [address] [place] [address] [place] [address] [place] [address] [place] [address] HMO POS Care Teams Cylinder Machine Operator Relationship Specialty Start Date End Date Brent Stewart MD [address] [place] [address] [place] [address] PCP - General Internal Medicine 03/20/23 Additional Source Comments The information contained in this document represents components of the legal health record. It is not the complete legal health record.[facility]
== END 2025-06-29 12:35 | disposition home or self-care (01) ==
LOC: HO.HMCH 11:55
PROVIDERS: PCP Internal Medicine; Visit Provider Internal Medicine
DX: E78.2 Mixed hyperlipidemia (principal); R79.89 Other specified abnormal findings of blood chemistry; E66.9 Obesity, unspecified; Z68.30 Body mass index [BMI] 30.0-30.9, adult; I10 Essential (primary) hypertension; I47.10 Supraventricular tachycardia, unspecified; E06.3 Autoimmune thyroiditis; R73.01 Impaired fasting glucose; M25.50 Pain in unspecified joint; N40.1 Benign prostatic hyperplasia with lower urinary tract symptoms; N13.8 Other obstructive and reflux uropathy; F41.9 Anxiety disorder, unspecified

== ENCOUNTER → 2025-06-29 11:54 | Outpatient (BNVA) | payer BC, SELFPAY | PROVIDERS: PCP Internal Medicine; Visit Provider Internal Medicine | DX: E78.2 Mixed hyperlipidemia (principal); R79.89 Other specified abnormal findings of blood chemistry; I10 Essential (primary) hypertension; I47.10 Supraventricular tachycardia, unspecified; E06.3 Autoimmune thyroiditis; R73.01 Impaired fasting glucose; M25.50 Pain in unspecified joint; N40.1 Benign prostatic hyperplasia with lower urinary tract symptoms; N13.8 Other obstructive and reflux uropathy; F41.9 Anxiety disorder, unspecified; F33.9 Major depressive disorder, recurrent, unspecified; E66.9 Obesity, unspecified; Z68.30 Body mass index [BMI] 30.0-30.9, adult; Z79.899 Other long term (current) drug therapy; Z13.31 Encounter for screening for depression; Z13.39 Encounter for screening examination for other mental health and behavioral disorders | CPT/HCPCS: 96127 ==

== ENCOUNTER 2025-08-02 15:32 | Outpatient (AMB) | payer BC, SELFPAY ==
--- NOTE | 2025-08-02 15:47 | A.OFFPC_ITS ---
Vital Signs 08/02/25 15:48 Height 5 ft 10 in Weight 222 lb 8 oz BMI 31.9 BP 180/90 H Blood Pressure Location Lt brachial Position Sitting Pulse 71 Pulse Source Pulse Oximeter Temp 97.5 F Temp Source Temporal Artery Scan Pulse Oximetry (%) 93 Oxygen Delivery Method Room Air Intake Visit Reasons: can't move both arms Intake Note: Patient is here to follow up on Bilateral shoulder pain. District Manager In Training Required: No Paranormal Investigator: Not Required per policy Accompanied by: Self / Same As Patient Allergies sulfamethoxazole (From Bactrim) Allergy (Intermediate, Verified 08/02/25 16:10) mucosal and hand rash/scaling trimethoprim (From Bactrim) Allergy (Intermediate, Verified 08/02/25 16:10) mucosal and hand rash/scaling amoxicillin Allergy (Unknown, Verified 08/02/25 16:10) Unknown fenofibrate (From TRICOR) Allergy (Unknown, Verified 08/02/25 16:10) UNKNOWN Medication List - Last Reconciled 08/02/25 by Aman Tavera PA-C albuterol sulfate 90 mcg/actuation 2 puffs PO Q6H PRN ascorbic acid (vitamin C) 500 mg PO DAILY citalopram 20 mg PO DAILY 90 days finasteride 5 mg PO DAILY 90 days fluticasone propion-salmeterol 100-50 mcg/dose (Advair Diskus) 1 inh inhalation BID levothyroxine 175 mcg PO DAILY 60 days lisinopril 5 mg PO DAILY 90 days multivitamin with minerals (Men's One Daily tablet) 1 tab PO DAILY omega-3 fatty acids (Fish Oil Concentrate) 1,000 mg PO DAILY tadalafil 5 mg PO DAILY 90 days verapamil 80 mg PO TID 90 days vitamin E (dl, acetate) 450 mg PO DAILY 90 days Tobacco use date assessed: 08/02/25 Dental Screening Dental Screen Date: 06/29/25 HPI can't move both arms HPI Details The patient is a 54-year-old male presenting with lateral shoulder pain and difficulty with arm movement. The shoulder pain is described as intense, annetta to drilling, and has worsened over the past month to month and a half, particularly affecting morning activities. Attempts to alleviate the pain by changing sleeping positions and using a new pillow have been unsuccessful. The patient suspects polymyalgia rheumatica due to his family history of rheumatoid arthritis and his own Cara's disease. 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 Trigger finger, right middle finger Mixed hyperlipidemia Impaired fasting glucose Depression Obesity (BMI 30-39.9) Anxiety Hypertriglyceridemia Supraventricular tachycardia Acquired hypothyroidism Benign essential hypertension Pleuritic chest pain Pneumonia Sepsis HTN (hypertension) BPH w urinary obs/LUTS Hepatic steatosis Surgical History S/P trigger finger release (~08/03/23) History of carpal tunnel release (~08/03/23) H/O right knee surgery Hx of meniscectomy of right knee History of cystoscopy History of colonoscopy History of back surgery Family History Father CVD (cardiovascular disease) Heart attack Rheumatoid arthritis Mother Dementia Social History (Updated 08/02/25 @ 15:55 by HECTOR Yap) Household Members: Significant Other Housing: House Do you presently have visiting nurse or other home services: No Alcohol intake: current Alcohol intake frequency: a few times a week Alcohol type: wine Comment: pt states tylenol will help him better Patient Tobacco Use Status: Current everyday Tobacco user Tobacco use type: Cigarette Cigarette Packs Per Day: 0.5 Cigarettes Per Day: 4 Years Smoked: when I drink Packs Per Year: 0 Packs per year/per ci.00 e-Cigarette/Vaping Use: Never Used Second Hand Smoke Exposure: Yes Advance Directives Date on File: 02/23/19 service: No Current occupational status: employed 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 Cognitive needs: No Hearing needs: No Vision needs: No Questionnaire Thrive Questionnaire Date Thrive assessed: 06/29/25 What is your living situation today?: I have a steady place to live Within the past 12 months, did the food you bought not last and you didn't have the money to get more?: I choose not to answer this question Within the past 12 months, did you worry whether your food would run out before you got money to buy more?: Never true Do you have trouble paying for medicines?: No Do you have trouble getting transportation to medical appointments?: No Do you have trouble paying your heating and electricity bill?: No Do you have trouble taking care of your child, family member or friend?: No Do you have trouble with day-to-day activities such as bathing, preparing meals, shopping, managing finances, etc.?: No Are you currently unemployed and looking for a job?: Yes Are you interested in more education?: No Please select the resources that you would like help with: None THRIVE Score: 0 AUDIT C Alcohol Use Questionnaire (AUDIT-C) 1. How often do you have a drink containing alcohol?: 2-3 times a week 2. How many drinks containing alcohol do you have on a typical day when you are drinking?: 1 or 2 3. How often do you have six or more drinks on one occasion?: Never Total Score: 3 BRANDEN-7 AMB Questionnaire BRANDEN-7 Date BRANDEN - 7 assessed: 06/29/25 Feeling nervous, anxious, or on edge: 0 = Not at all Not being able to stop or control worryin = Not at all Worrying too much about different things: 0 = Not at all Trouble relaxin = Not at all Being so restless that it is hard to sit still: 0 = Not at all Becoming easily annoyed or irritable: 0 = Not at all Feeling afraid as if something awful might happen: 0 = Not at all Total BRANDEN-7 score (0-4 normal; 5-9 mild; 10-14 moderate; 15-21 severe): 0 Source: Developed by Drs. Fredi Garvin, Berenice Ortiz, Keaton Son and colleagues, with an educational eren from [employer]. Review of Systems Const Denies headache(s) Eyes Denies loss of vision ENT Denies vertigo, Denies dizziness, Denies headache(s) and Denies sore throat Card Denies chest pain, Denies leg edema and Denies lightheadedness Resp Denies cough, Denies hemoptysis and Denies wheezing GI Denies abdominal pain, Denies melena, Denies constipation, Denies diarrhea and Denies vomiting Denies dysuria, Denies urinary frequency and Denies urinary urgency Musc Denies arthralgias, Denies joint swelling, Denies numbness and Denies tingling Neuro Denies Abnormal speech present, Denies behavioral changes, Denies vertigo, Denies dizziness, Denies headache(s), Denies loss of vision, Denies memory loss, Denies numbness and Denies tingling Psych Denies anxiety, Denies behavioral changes, Denies depression, Denies memory loss and Denies panic attacks Lj/Lymph Denies easy bleeding and Denies easy bruising Aller/Immun Denies wheezing Physical exam (Primary Care) Vital Signs: Last Vital Signs Temp 97.5 F 08/02/25 15:48 Pulse 71 08/02/25 15:48 BP 180/90 H 08/02/25 15:48 Pulse Ox 93 08/02/25 15:48 Oxygen Delivery Method Room Air 08/02/25 15:48 BMI result Body Mass Index 31.9 Tobacco/Smoking Status: Tobacco use Status Tobacco use date assessed 08/02/25 08/02/25 15:51 Patient Tobacco Use Status Current everyday Tobacco 08/02/25 15:55 Tobacco use type Cigarette 08/02/25 15:55 e-Cigarette/Vaping Use Never Used 08/02/25 15:55 Thrive Assessment: Date of Thrive Assessment Date Thrive assessed 06/29/25 08/02/25 15:51 Const General: healthy appearing, no acute distress, alert and awake Nutritional Appearance: well nourished Orientation/consciousness: oriented to person, oriented to place and oriented to time HENMT Ears: TM's normal bilaterally General nose exam: Normal nasal mucous membranes and turbinates present Eyes Conjunctivae: conjunctivae normal Sclerae: sclerae normal Pupils: Equal, round and reactive pupils present Neck Neck: Yes no lymphadenopathy and Yes no JVD Thyroid: Thyroid normal Carotids: no bruits Resp Effort & Inspection: normal respiratory effort and not tachypneic Auscultation: no crackles, no rales, no rhonchi and no wheezes Cardio Rate: regular rate Rhythm: regular rhythm Heart sounds: no murmurs and normal S1 and S2 GI Palpation (GI): Soft to palpation, nontender, no hepatomegaly and no splenomegaly Auscultation: normal bowel sounds Skin General skin exam: no rashes or lesions noted and dry skin Neuro General: oriented to person, oriented to place and oriented to time Cranial nerves: Yes Equal, round and reactive pupils present Speech: No Abnormal speech present Gait exam (Neuro): Normal gait present Motor exam (neuro): no tremor noted Extrem Other: BILATERAL UPPER EXTREMITIES WITH VERY LIMITED RANGE OF MOTION DUE TO STIFFNESS AND PAIN Right upper extremity: ROM limited Left upper extremity: ROM limited Right lower extremity: full ROM; no edema Left lower extremity: full ROM; no edema Psych Mental Status: mental status grossly normal Speech and movement: Normal speech and movement present Affect: normal affect Attitude: cooperative Thought process: Normal thought process present Coding Level of Care Code Est Pt Level 3 (46563) Diagnoses PMR (polymyalgia rheumatica) M35.3 Assessment & Plan Assessment & Plan (1) PMR (polymyalgia rheumatica): Code(s): M35.3 - Polymyalgia rheumatica Category: Medical Plan: The patient is suspected to have polymyalgia rheumatica, and a treatment plan with prednisone is discussed, starting with a higher dose and tapering over a few weeks. Prednisone should be taken in the morning to avoid insomnia, and the tapering schedule should be followed strictly to prevent symptom recurrence. Medications: New prednisone Take 3 tablets x5 days, 2 tablets x5 days, 1 tablet x5 days 5 mg PO DIRECTED 30 tabs 0RF 15 days M35.3 - Polymyalgia rheumatica
[2025-08-02 15:48] VITALS: BP 180/90; PULSE 71; TEMP 36.4; O2SAT 93; BMI 31.9
--- OUTSIDE RECORDS SUMMARY | 2025-08-02 19:01 | XMS_ITS | Clinical Summary ---
Author Organization [facility] Address [address] [place], [place] [id number] Phone Care Team Providers Care Tooling Manager Name Role Phone Brent Stewart MD Primary Care Provider [phone] Allergies Active Allergy Reactions Criticality Noted Date [...] 07/20/2019, 10/07/2016, Additional history exists COVID-19 VACCINE (2024- season) 2025 09/22/2021, 03/26/2021, 03/05/2021 RSV VACCINE (1 - 1-dose 75+ series) 2044 HEPATITIS A VACCINES Aged Out No long [...] Insurance HMO POS HMO POS HMO POS HMO POS HMO POS HMO POS Care Teams Tooling Manager Relationship Specialty Start Date End Date Brent Stewart MD [address] [place] [address] [place] [address] PCP - General Internal Medicine 03/20/23 Additional Source Comments The information contained in this document represents components of the legal health record. It is not the complete legal health record.[facility]
== END 2025-08-02 16:15 | disposition home or self-care (01) ==
LOC: HO.HMCH 15:33
PROVIDERS: PCP Internal Medicine; Visit Provider Physician Assistant
DX: M35.3 Polymyalgia rheumatica (principal)

== ENCOUNTER 2025-08-15 09:57 | Outpatient (AMB) | payer BC, SELFPAY ==
[2025-08-15 10:18] VITALS: BP 150/96; PULSE 68; O2SAT 97; BMI 31.4
--- NOTE | 2025-08-15 10:18 | MHC.OFFWIV ---
Intake Vital Signs 08/15/25 10:18 Height 5 ft 10 in Weight 219 lb BMI 31.4 BP 150/96 H Blood Pressure Location Rt brachial Position Sitting Pulse 68 Pulse Source Pulse Oximeter Pulse Oximetry (%) 97 Oxygen Delivery Method Room Air Intake Visit Reasons: EP-b/l arms/shoulder,hips frozen Intake Note: Patient presents with c/o bilateral frozen shoulders, hips & arms x2 months - PCP prescribed prednisone taper & patient not doing well on 5mg. Patient Tobacco Use Status: Current everyday Tobacco user Allergies sulfamethoxazole (From Bactrim) Allergy (Intermediate, Verified 08/15/25 10:21) mucosal and hand rash/scaling trimethoprim (From Bactrim) Allergy (Intermediate, Verified 08/15/25 10:21) mucosal and hand rash/scaling amoxicillin Allergy (Unknown, Verified 08/15/25 10:21) Unknown fenofibrate (From TRICOR) Allergy (Unknown, Verified 08/15/25 10:21) UNKNOWN HPI HPI Comments History of Present Illness Details History of Present Illness - The patient is a 54-year-old male presenting with joint pain and concerns for polymyalgia rheumatica. - The patient reports a history of polymyalgia rheumatica (PMR) and has been on a tapering dose of prednisone, starting at 15 mg and reducing to 5 mg, which has not been effective in alleviating symptoms. - The patient has undergone two courses of doxycycline this year for suspected Lyme disease, although multiple tests for Lyme disease have returned negative results. - The patient experienced a tick bite in March and was tested for Lyme disease a couple of weeks after the bite, but results were negative. - The patient has a family history of PMR, with his father having from the condition, and reports similar symptoms in his hips and shoulders. - The patient previously consulted a polyethylene bag machine operator in [place], who has since moved, and expresses a need to see a polyethylene bag machine operator again. Review of Systems - Musculoskeletal: Reports joint pain and stiffness. - General: Denies improvement with current prednisone taper. All systems reviewed and are unremarkable except as noted in HPI Physical Exam General: Cooperative, healthy appearing, comfortable, no acute distress and well developed Orientation: Patient oriented x3 Limitations: No limitations Head: Normal to inspection Ears: Hearing grossly normal bilaterally Nose: Normal External nose present Face and sinus: Normal facial exam Eyes: Appearance normal, both eyes and all related structures Neck: Normal visual inspection and Yes full ROM Respiratory: Normal respiratory effort and able to speak in complete sentences. 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 Trigger finger, right middle finger Mixed hyperlipidemia Impaired fasting glucose Depression Obesity (BMI 30-39.9) Anxiety Hypertriglyceridemia Supraventricular tachycardia Acquired hypothyroidism Benign essential hypertension Pleuritic chest pain Pneumonia Sepsis HTN (hypertension) BPH w urinary obs/LUTS Hepatic steatosis Surgical History S/P trigger finger release (~08/03/23) History of carpal tunnel release (~08/03/23) H/O right knee surgery Hx of meniscectomy of right knee History of cystoscopy History of colonoscopy History of back surgery Family History Father CVD (cardiovascular disease) Heart attack Rheumatoid arthritis Mother Dementia Social History (Updated 08/02/25 @ 15:55 by HECTOR Yap) Household Members: Significant Other Housing: House Do you presently have visiting nurse or other home services: No Alcohol intake: current Alcohol intake frequency: a few times a week Alcohol type: wine Comment: pt states tylenol will help him better Patient Tobacco Use Status: Current everyday Tobacco user Tobacco use type: Cigarette Cigarette Packs Per Day: 0.5 Cigarettes Per Day: 4 Years Smoked: when I drink e-Cigarette/Vaping Use: Never Used Second Hand Smoke Exposure: Yes Advance Directives Date on File: 02/23/19 service: No Current occupational status: employed 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 1. Polymyalgia Rheumatica (PMR) - Plan to initiate a new prednisone taper starting at 60 mg for two days, followed by 40 mg for two days, then 20 mg, and tapering down to 10 mg tablets to avoid cutting tablets. - The patient will be monitored for response to the new taper regimen. - Messaged PCP to be referred to a polyethylene bag machine operator for further evaluation and management of joint pain and labs to assess for PMR. 2. Suspected Lyme Disease - Plan to retest for Lyme disease and other tick-borne diseases due to previous negative results and ongoing symptoms. - The patient will undergo a tick panel to identify any other potential tick-borne infections and Lyme testing. Orders: Orders Lyme IgG/IgM w/reflex to WB Today M25.50 - Pain in unspecified joint Tick-borne Disease Molecular Today M25.50 - Pain in unspecified joint Medications: New prednisone On days 1-3, take 3 tablets with breakfast. On days 4-6 take 2 tablets with breakfast, on days 7-10 take 1 tablet with breakfast 20 mg PO daily 19 tabs 0RF Discontinued prednisone Take 3 tablets x5 days, 2 tablets x5 days, 1 tablet x5 days Discontinued Reason: Doctor's Order 5 mg PO DIRECTED 15 days 30 tabs 0RF M35.3 - Polymyalgia rheumatica Coding Level of Care Code Est Pt Level 4 (79681) Diagnoses Arthralgia, unspecified joint M25.50 Joint pain location: unspecified
--- OUTSIDE RECORDS SUMMARY | 2025-08-15 11:44 | XMS_ITS | Clinical Summary ---
Author Organization [facility] Address [address] [place], [place] [id number] Phone Care Team Providers Care Human Development Professor Name Role Phone Brent Stewart MD Primary Care Provider [phone] Allergies Active Allergy Reactions Criticality Noted Date [...] POS HMO POS HMO POS Care Teams Human Development Professor Relationship Specialty Start Date End Date Brent Stewart MD [address] [place] [address] [place] [address] PCP - General Internal Medicine 03/20/23 Additional Source Comments The information contained in this document represents components of the legal health record. It is not the complete legal health record.[facility]
== END 2025-08-15 11:05 | disposition home or self-care (01) ==
PROVIDERS: PCP Internal Medicine; Visit Provider Physician Assistant
DX: M25.50 Pain in unspecified joint (principal)

== ENCOUNTER 2025-08-15 09:57 | Outpatient (REF) | payer BC, SELFPAY ==
[2025-08-16 07:33] LABS: Lyme Abs Screen <0.90 index
[2025-08-17 06:52] LABS: A. Phagocytphilium DNA,RT-PCR NOT DETECTED (NOT DETECTED); Babesia Microti DNA, RT-PCR NOT DETECTED (NOT DETECTED); Borrelia Miyamotoi,DNA RT-PCR NOT DETECTED (NOT DETECTED); E.Chaffeensis DNA RT-PCR NOT DETECTED (NOT DETECTED); Lyme(Borrelia ssp)DNA RT-PCR NOT DETECTED (NOT DETECTED)
== END 2025-08-15 09:58 | disposition home or self-care (01) ==
LOC: HO.HMGCLDS 09:57
PROVIDERS: PCP Internal Medicine; Visit Provider Physician Assistant
DX: M25.551 Pain in right hip (principal); M25.552 Pain in left hip; M25.511 Pain in right shoulder; M25.512 Pain in left shoulder; M79.601 Pain in right arm; M79.602 Pain in left arm; Z01.84 Encounter for antibody response examination
CPT/HCPCS: 36415; 86617; 86618; 87468; 87469; 87478; 87484; 87798

== ENCOUNTER 2025-08-15 11:44 | Outpatient (REF) | payer BC, SELFPAY ==
[2025-08-23 12:18] LABS: Anti Nuclear Antibody Screen NEGATIVE (NEGATIVE)
== END 2025-08-15 11:45 | disposition home or self-care (01) ==
LOC: HO.10HDL 11:44
PROVIDERS: Visit Provider Physician Assistant
DX: M35.3 Polymyalgia rheumatica (principal); M25.50 Pain in unspecified joint; Z01.84 Encounter for antibody response examination
CPT/HCPCS: 36415; 86038; 86039; 86200; 86431

== ENCOUNTER 2025-10-03 12:22 | Outpatient (AMB) | payer BC, SELFPAY ==
--- NOTE | 2025-10-03 12:34 | A.OFFVIS_ITS ---
Vital Signs 10/03/25 12:39 Height 5 ft 10 in Weight 218 lb 11.177 oz BMI 31.4 BP 160/100 H Blood Pressure Location Rt brachial Position Sitting Pulse 64 Pulse Source Pulse Oximeter Pulse Oximetry (%) 94 Oxygen Delivery Method Room Air Intake Visit Reasons: PMR Intake Note: New patient presents today for PMR. Manager Bank Required: No Information Interpreted: non-clinical & clinical Accompanied by: Self / Same As Patient Allergies sulfamethoxazole (From Bactrim) Allergy (Intermediate, Verified 08/15/25 10:21) mucosal and hand rash/scaling trimethoprim (From Bactrim) Allergy (Intermediate, Verified 08/15/25 10:21) mucosal and hand rash/scaling amoxicillin Allergy (Unknown, Verified 08/15/25 10:21) Unknown fenofibrate (From TRICOR) Allergy (Unknown, Verified 08/15/25 10:21) UNKNOWN Medication List - Last Reconciled 10/03/25 by Katharine Abreu MD albuterol sulfate 90 mcg/actuation 2 puffs PO Q6H PRN ascorbic acid (vitamin C) 500 mg PO DAILY citalopram 20 mg PO DAILY 90 days finasteride 5 mg PO DAILY 90 days fluticasone propion-salmeterol 100-50 mcg/dose (Advair Diskus) 1 inh inhalation BID levothyroxine 175 mcg PO DAILY 60 days lisinopril 5 mg PO DAILY 90 days multivitamin with minerals (Men's One Daily tablet) 1 tab PO DAILY omega-3 fatty acids (Fish Oil Concentrate) 1,000 mg PO DAILY prednisone 10 mg PO DAILY tadalafil 5 mg PO DAILY 90 days verapamil 80 mg PO TID 90 days vitamin E (dl, acetate) 450 mg PO DAILY 90 days HPI Comments Details: Patient is a 55-year-old male with hypothyroidism, hypertension, anxiety and depression, BPH, polyarticular osteoarthritis here today for a evaluation of PMR Patient was seen for a follow up visit in July complaining of lateral shoulder pain and difficulty with arm movement. He was diagnosed with polymyalgia rheumatica without any inflammatory markers being ordered. He was given prednisone without improvement in his symptoms and so is hair to be evaluated at Rheumatology for his presumed diagnosis of PMR - presenting for evaluation of suspected polymyalgia rheumatica (PMR). - His symptoms began after he was bitten by a tick on his eyelid, which he removed himself. A few days later, his dog tested positive for anaplasmosis. - About a week after the tick bite, he developed hives after drinking a beer, and a couple of weeks after that, he developed severe hip soreness that was so debilitating he could not get dressed or out of a car without assistance. - Approximately 3-4 weeks post-tick bite, he was tested for various conditions, with all results coming back negative. - He was treated with a two-week course of doxycycline with no improvement, followed by another course prescribed by a friend and an additional week's dose from another doctor, also without effect. - He was then started on prednisone 15 mg tapered to 5 mg, but his pain returned at the 5 mg dose. - Subsequently, he was placed on a 60 mg taper and has been maintained on 10 mg daily since, as stopping the medication leads to a significant increase in pain. - The patient's joint pain initially started in the hips and has since involved his shoulders, posterior knees, and hands. - He reports morning stiffness in his hands that can sometimes last the entire day and has noticed white blotches on his hands in the morning. - Around , he experienced significant unilateral lymph node swelling that improved after a five-day course of leftover doxycycline. - The patient's father had a history of rheumatoid arthritis with a high RA factor and from a heart attack after his first biologic treatment. - The patient also reports a hospitalization last year due to a persistent cough following mold exposure at his property in [place]. - Past medical history is also notable for carpal tunnel syndrome. 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 Trigger finger, right middle finger Mixed hyperlipidemia Impaired fasting glucose Depression Obesity (BMI 30-39.9) Anxiety Hypertriglyceridemia Supraventricular tachycardia Acquired hypothyroidism Benign essential hypertension Pleuritic chest pain Pneumonia Sepsis HTN (hypertension) BPH w urinary obs/LUTS Hepatic steatosis Surgical History S/P trigger finger release (~08/03/23) History of carpal tunnel release (~08/03/23) H/O right knee surgery Hx of meniscectomy of right knee History of cystoscopy History of colonoscopy History of back surgery Family History Father CVD (cardiovascular disease) Heart attack Rheumatoid arthritis Mother Dementia Social History Household Members: Significant Other Housing: House Do you presently have visiting nurse or other home services: No Alcohol intake: current Alcohol intake frequency: a few times a week Alcohol type: wine Comment: pt states tylenol will help him better Patient Tobacco Use Status: Current everyday Tobacco user Tobacco use type: Cigarette Cigarette Packs Per Day: 0.5 Cigarettes Per Day: 4 Years Smoked: when I drink e-Cigarette/Vaping Use: Never Used Second Hand Smoke Exposure: Yes Advance Directives Date on File: 02/23/19 service: No Current occupational status: employed 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/ [employer] Cognitive needs: No Hearing needs: No Vision needs: No Review of Systems Narrative Review of Systems - Constitutional: Reports occasional sweats and weight gain secondary to prednisone use. Denies fever and unexpected weight loss. - Integumentary: Reports a history of hives and white blotches on his hands in the morning. - Musculoskeletal: Reports severe migratory pain in his hips, shoulders, posterior knees, and hands. Reports morning stiffness in his hands lasting up to a full day. - Lymphatic: Reports a history of a significantly swollen lymph node on one side. - Respiratory: Reports a history of a persistent cough following mold exposure. All other systems reviewed and are unremarkable except noted above Physical Exam Exam Exam: Vital signs reviewed Physical Examination CONSTITUITIONAL Patient alert and cooperative. Well appearing and in no apparent painful distress MSK Hands * Right Hand: Able to make a fist. No swelling or tenderness to palpation of the MCPs, PIPs or DIPs. No deformities noted. * Left Hand: Able to make a fist. No swelling or tenderness to palpation of the MCPs, PIPs or DIPs. No deformities noted. Wrists * Right Wrist: Full ROM to flexion and extension. No swelling or TTP * Left Wrist: Full ROM to flexion and extension. No swelling or TTP Elbows * Right Elbow: Full ROM. No swelling or TTP. No TTP of the medial epicondyle. No TTP of the lateral epicondyle * Left Elbow: Full ROM. No swelling or TTP. No TTP of the medial epicondyle. No TTP of the lateral epicondyle Shoulders * Right shoulder: Full ROM. No swelling noted. No TTP of the AC joint. No TTP of the subacromial bursa. No TTP of the posterior shoulder * Left shoulder: Full ROM. No swelling noted. No TTP of the AC joint. No TTP of the subacromial bursa. No TTP of the posterior shoulder Hips * Right hip: Good ROM. Pain elicited with internal/external rotation * Left hip: Good ROM. Pain elicited with internal/external rotation Knees * Right knee: Full ROM. No swelling noted. No TTP of the knee joint line. No TTP of pes anserine bursa * Left knee: Full ROM. No swelling noted. No TTP of the knee joint line. No TTP of pes anserine bursa. * Crepitations felt bilaterally Ankles * Right ankle: Good ankle dorsiflexion and plantar flexion. No swelling. No TTP of the ankle joint * Left ankle: Good ankle dorsiflexion and plantar flexion. No swelling. No TTP of the ankle joint Feet * Right foot: Negative squeeze test * Left foot: Negative squeeze test Tender points? * No tenderness to palpation of the bilateral trapezius, supraspinatus, anterior costochondral junctions, bilateral suboccipital muscle insertions SKIN No rashes Vital Signs: Last Vital Signs Pulse 64 10/03/25 12:39 BP 160/100 H 10/03/25 12:39 Pulse Ox 94 10/03/25 12:39 Oxygen Delivery Method Room Air 10/03/25 12:39 BMI result Body Mass Index 31.4 Results Reviewed Results Reviewed: Laboratory Tests 11/30/24 06/28/25 10:06 08:55 WBC 10.4 RBC 4.57 L Hgb 15.6 Hct 45.4 Plt Count 187 ESR 2 Sodium 136 Potassium 4.3 Chloride 102 Carbon Dioxide 26 BUN 14 Creatinine 0.75 AST 72 H ALT 77 H C-Reactive Protein 0.36 Laboratory Tests 08/15/25 11:50 Rheumatoid Factor < 13.0 Cycl Citrul Peptide IgG <16 LORE Screen NEGATIVE Assessment & Plan Assessment & Plan (1) Shoulder pain: Code(s): M25.519 - Pain in unspecified shoulder Qualifiers: Chronicity: unspecified Laterality: bilateral Qualified Code(s): M25.511 - Pain in right shoulder; M25.512 - Pain in left shoulder Plan: #Bilateral shoulder pain The patient is a 55 year old male who was referred for suspected polymyalgia rheumatica (PMR), but this diagnosis is considered unlikely due to the lack of response to steroids and the absence of initial inflammatory markers. The primary goal is to establish a definitive diagnosis, as long-term prednisone use has complicated the clinical picture. The plan is to obtain blood work, though it is acknowledged that the results will be affected by the ongoing prednisone treatment. A PET scan will be ordered, as it can show specific imaging findings for PMR that are not affected by steroid use. The patient will continue prednisone 10 mg daily for symptom control. A follow-up appointment is scheduled in four weeks to review the results of the diagnostic workup. Plan - Prednisone 10mg daily - PET Scan - Labs today: CBC, CMP, ESR, CRP, Lyme, Erlichia, Anaplasma - RTC 4 weeks Plan I discussed with the patient that his presentation is atypical for polymyalgia rheumatica (PMR) because he did not have initial bloodwork confirming inflammation and his symptoms did not significantly improve with steroids, which is a hallmark of PMR. I emphasized that the primary goal now is to establish an accurate diagnosis rather than treating an unknown condition, as his long-term prednisone use has already complicated the diagnostic process. I explained the plan to order blood tests and a PET scan. I informed him that while the prednisone would likely affect the blood results, it would not interfere with the PET scan, which can be very specific for PMR. We agreed he would continue prednisone 10 mg daily for symptom control until the next visit. I advised him to take it easy with physical activity and scheduled a follow-up in four weeks to review the results. I spent 45 minutes reviewing the record and labs, taking a history, examining the patient, discussing the treatment plan, ordering diagnostic work up and documenting in the medical record Orders: Orders Comprehensive Met. Panel Today M25.50 - Pain in unspecified joint C Reactive Protein Today M25.50 - Pain in unspecified joint Erythrocyte Sedimentation Rate Today M25.50 - Pain in unspecified joint Lyme IgG/IgM w/reflex to WB Today M25.50 - Pain in unspecified joint Ehrlichia Anaplasma Ab Panel Today M25.50 - Pain in unspecified joint PET CT fusion skull to thigh Today M35.3 - Polymyalgia rheumatica Complete Blood Count Auto Diff Today M25.50 - Pain in unspecified joint Medications: New prednisone 10 mg PO DAILY 30 tabs 1RF M35.3 - Polymyalgia rheumatica Discontinued prednisone On days 1-3, take 3 tablets with breakfast. On days 4-6 take 2 tablets with breakfast, on days 7-10 take 1 tablet with breakfast Discontinued Reason: Doctor's Order 20 mg PO daily 19 tabs 0RF prednisone see taper instructions take 4 tabs x2 day, take 3 tabs x2 day, take 2 tabs x2 day, take 1 tab x2 day =20 over 8 days Discontinued Reason: Doctor's Order 10 mg PO DIRECTED 20 tabs 0RF R07.89 - Other chest pain Coding Level of Care Code New Pt Level 4 (24063) Add On Problem Visit Only Diagnoses Bilateral shoulder pain, unspecified chronicity M25.511; M25.512 Chronicity: unspecified Laterality: bilateral
[2025-10-03 12:39] VITALS: BP 160/100; PULSE 64; O2SAT 94; BMI 31.4
--- OUTSIDE RECORDS SUMMARY | 2025-10-03 16:13 | XMS_ITS | Clinical Summary ---
Author Organization [facility] Address [address] [place], [place] [id number] Phone Care Team Providers Care Manager Digital Ad Operations Name Role Phone Brent Stewart MD Primary Care Provider [phone] Allergies Active Allergy Reactions Criticality Noted Date [...] Booster 01/27/2024 01/26/2014 INFLUENZA VACCINE (#1) 2025 , 07/20/2019, 10/07/2016, Additional history exists COVID-19 VACCINE [...] topic Medical Devices Not on file Insurance O POS HMO POS HMO POS HMO POS HMO POS HMO POS Care Teams Manager Digital Ad Operations Relationship Specialty Start Date End Date Brent Stewart MD [address] [place] [address] [place] [address] PCP - General Internal Medicine 03/20/23 Additional Source Comments The information contained in this document represents components of the legal health record. It is not the complete legal health record.[facility]
== END 2025-10-03 13:16 | disposition home or self-care (01) ==
LOC: HO.RHES 12:23
PROVIDERS: PCP Internal Medicine; Visit Provider Student in an Organized Health Care Education/Training Program
DX: M25.511 Pain in right shoulder (principal); M25.512 Pain in left shoulder
CPT/HCPCS: 99204

== ENCOUNTER 2025-10-03 12:22 | Outpatient (REF) | payer BC, SELFPAY ==
[2025-10-03 18:16] LABS: MANUAL DIFF FLAG NO
[2025-10-03 18:24] LABS: Hematocrit 44.7 % (42.0-52.0); Hemoglobin 15.2 g/dl (14.0-18.0); Imm Gran Abs Auto 0.08 X10*3/uL (0.00-0.03); Imm Gran Pct Auto 0.6 % (0.0-0.4); Lymphocytes Absolute Auto 1.8 X10*3/uL (1.2-4.9); Mean Corpuscular HGB Conc 34.0 g/dl (31.0-36.0); Mean Corpuscular Hemoglobin 33.9 pg (27.0-33.0); Mean Corpuscular Volume 99.6 fL (80.0-98.0); NRBC Abs Auto 0.000 X10*3/uL (0.0-0.012); NRBC Pct Auto 0.0 /100WBC (0.0-0.2); Platelet Count 182 X10*3/uL (160-400); Red Blood Count 4.49 X10*6/uL (4.60-5.80); White Blood Count 12.9 X10*3/uL (4.8-10.8)
[2025-10-03 18:37] LABS: Alanine Aminotransferase 102 U/L (0-40); Albumin Level 4.5 g/dL (3.5-5.0); Alkaline Phosphatase 85 U/L (39-117); Anion Gap 11 (12-20); Aspartate Amino Transferase 79 U/L (5-37); Blood Urea Nitrogen 14 mg/dL (9-16); Calcium 9.1 mg/dL (8.4-10.2); Carbon Dioxide 25 mmol/L (22-29); Chloride 105 mmol/L (96-108); Estimated Glomerular Filt Rate > 60; Potassium 4.3 mmol/L (3.3-5.1); Sodium 137 mmol/L (135-145); Total Protein 7.2 g/dL (6.5-8.0)
[2025-10-04 09:23] LABS: Lyme Abs Screen <0.90 index
== END 2025-10-03 12:23 | disposition home or self-care (01) ==
LOC: HO.HKASLDS 12:22
PROVIDERS: PCP Internal Medicine; Visit Provider Student in an Organized Health Care Education/Training Program
DX: M25.511 Pain in right shoulder (principal); M25.512 Pain in left shoulder; R07.89 Other chest pain; Z01.84 Encounter for antibody response examination; Z79.52 Long term (current) use of systemic steroids
CPT/HCPCS: 36415; 80053; 85025; 85652; 86140; 86617; 86618; 86666

== ENCOUNTER 2025-10-06 09:17 | Outpatient (REF) | payer BC, SELFPAY ==
--- NOTE | ~2025-10-06 | XR_ITS ---
EXAMINATION: XR SHOULDER 2 OR MORE VIEWS BILATERAL HISTORY: M25.511 - Pain in right shoulder COMPARISON: There are no prior studies available for comparison. FINDINGS: Eight views of the bilateral shoulders are submitted. Osseous mineralization is normal. There is no fracture or dislocation. The glenohumeral joints are maintained. There is mild degenerative change of the AC joints with joint space narrowing and osteophyte formation. The soft tissues are unremarkable. XR/XR Shoulder Silvestre min 2V IMPRESSION: Mild degenerative change of the AC joints. Electronically signed by: Fredi Montana MD 10/06/2025 10:11 AM ANAID
--- NOTE | ~2025-10-06 | XR_ITS ---
EXAMINATION: XR BILATERAL HIPS WITH AP PELVIS CLINICAL INFORMATION: M25.511 - Pain in right shoulder; pain in hips. COMPARISON: No prior. Correlation made with CT abdomen and pelvis 12/20/2018. TECHNIQUE: AP view of the pelvis and 2 views of each hip were obtained. FINDINGS: No fracture, dislocation, or suspicious bone lesion is evident. Joint spaces are grossly maintained in both hip joints. There is minor superolateral acetabular spurring bilaterally. Normal femoral head contours bilaterally without evidence of AVN. Normal alignment of both hip joints. The sacrum is intact. The SI joints demonstrate mild degenerative changes. Mild degenerative changes in the lower lumbar spine. No discrete soft tissue abnormalities. XR/XR hips JAMIN min 3V IMPRESSION: 1. No acute bony or soft tissue abnormality is present. 2. Mild degenerative changes in both hip joints. Electronically signed by: Dada Bill MD 10/06/2025 10:11 AM ANAID
--- OUTSIDE RECORDS SUMMARY | 2025-10-06 09:52 | XMS_ITS | Clinical Summary ---
Author Organization [facility] Address [address] [place], [place] [id number] Phone Care Team Providers Care Diesel Machinist Name Role Phone Brent Stewart MD Primary Care Provider [phone] Allergies Active Allergy Reactions Criticality Noted Date [...] POS HMO POS HMO POS Care Teams Diesel Machinist Relationship Specialty Start Date End Date Brent Stewart MD [address] [place] [address] [place] [address] PCP - General Internal Medicine 03/20/23 Additional Source Comments The information contained in this document represents components of the legal health record. It is not the complete legal health record.[facility]
== END 2025-10-06 09:18 | disposition home or self-care (01) ==
LOC: HO.XRAY 09:17
PROVIDERS: PCP Internal Medicine; Visit Provider Student in an Organized Health Care Education/Training Program
DX: M25.551 Pain in right hip (principal); M25.552 Pain in left hip; M25.511 Pain in right shoulder; M25.512 Pain in left shoulder
CPT/HCPCS: 73030; 73522

== ENCOUNTER → 2025-10-06 09:20 | Outpatient (BNV) | payer BC, SELFPAY | PROVIDERS: PCP Internal Medicine; Visit Provider Radiology Diagnostic Radiology | DX: M25.551 Pain in right hip (principal); M25.552 Pain in left hip; M25.511 Pain in right shoulder; M25.512 Pain in left shoulder | CPT/HCPCS: 73030; 73522 ==